=== PATIENT | male | born 1930 | race African-American/Black ===

== ENCOUNTER 2016-05-30 10:49 | Outpatient (CLI) | payer MEDICARE | END 2016-05-30 10:50 | disposition home or self-care (01) | DX: I27.2 Other secondary pulmonary hypertension (principal); I51.7 Cardiomegaly; I34.0 Nonrheumatic mitral (valve) insufficiency; I37.1 Nonrheumatic pulmonary valve insufficiency; I36.1 Nonrheumatic tricuspid (valve) insufficiency; R06.01 Orthopnea; R06.00 Dyspnea, unspecified; R91.8 Other nonspecific abnormal finding of lung field; Z95.810 Presence of automatic (implantable) cardiac defibrillator ==

== ENCOUNTER 2017-01-29 11:16 | Emergency (ER) | payer MEDICARE ==
--- NOTE | 2017-01-29 12:42 | ED Physician Documentation ---
PD HPI DYSPNEA - Stated complaint Stated Complaint: BILAT LEG SWELLING - Chief complaint Chief Complaint: General - History obtained from History obtained from: Patient - History of Present Illness Timing - onset: How many days ago (several days to a week) Timing - onset during: Light activity Timing - duration: Days Timing - details: Gradual onset Inciting event(s): No: Out of meds, Immobilization/travel Improved by: O2, Inhaler/neb Worsened by: Exertion, Laying flat. No: Coughing Associated symptoms: Wheezing, Bilateral edema. No: Fever, Cough, Palpitations , Anxiety Similar symptoms before: Follow up Recently seen: Not recently seen Review of Systems Constitutional: denies: Fever, Chills Nose: denies: Rhinorrhea / runny nose, Congestion Throat: denies: Sore throat Cardiac: denies: Chest pain / pressure, Palpitations : denies: Dysuria, Now EGA Skin: denies: Rash, Lesions Musculoskeletal: reports: Back pain, Extremity swelling. denies: Neck pain PD PAST MEDICAL HISTORY - Past Medical History Cardiovascular: Congestive heart failure, Hypertension, Coronary artery disease , Deep vein thrombosis, [place], Other Respiratory: COPD, Shortness of breath Neuro: None Endocrine/Autoimmune: Type 2 diabetes GI: None : None HEENT: Chronic hearing loss Psych: None Musculoskeletal: None Derm: None - Past Surgical History Past Surgical History: Yes Ortho: Knee replacement - Present Medications Home Medications: Ambulatory Orders Medication Instructions Recorded Confirmed Aspirin [Aspir 81] 81 mg PO DAILY 05/21/13 01/29/17 Furosemide [Lasix] 120 mg PO DAILY 05/21/13 01/29/17 Losartan [Cozaar] 25 mg PO ONCE 05/21/13 01/29/17 Potassium Chloride [Klor-Con] 0 meq ORAL DAILY 05/21/13 01/29/17 Carvedilol [Coreg] 6.25 mg PO BID #20 tablet 02/07/16 01/29/17 metFORMIN [Glucophage] 500 mg PO BIDWM tablet 02/07/16 01/29/17 Metolazone 5 mg PO DAILY #20 tablet 01/29/17 - Allergies Allergies/Adverse Reactions: Allergies Allergy/AdvReac Type Severity Reaction Status Date / Time Penicillins Allergy Severe Hives Verified 01/29/17 11:38 acetaminophen AdvReac Severe pt reports Verified 01/29/17 11:38 [From Darvocet-N 100] cardiac arrest propoxyphene napsylate * AdvReac Severe pt reports Verified 01/29/17 11:38 [facility] - Social History Does the pt smoke?: No Smoking Status: Former smoker Does the pt drink ETOH?: No Does the pt have substance abuse?: No - Immunizations Immunizations are current?: No Immunizations: TDAP >10years/unknown, Other immun not current PD ED PE NORMAL - Vitals Vital signs reviewed: Yes - General General: Alert and oriented X 3, No acute distress, Well developed/nourished, Other (able to converse in sentences. ) - Neck Neck: Supple, no meningeal sign, No bony TTP, Thyroid normal, No JVD - Cardiac Cardiac: RRR, No murmur - Respiratory Respiratory: No respiratory distress, Clear bilaterally - Rectal Rectal: Deferred - Back Back: No CVA TTP - Derm Derm: Normal color, Warm and dry - Extremities Extremities: No deformity, No tenderness to palpate, Other (2+ edema in both legs up to shins without signs of calf tenderness. ) - Neuro Neuro: Alert and oriented X 3, feather washer 2-12 intact, No motor deficit, No sensory deficit - Psych Psych: Normal mood, Normal affect Results - Vitals Vitals: Oxygen O2 Source Room air - EKG (time done) 13:07 Rate: Rate (enter#) (59) Rhythm: Atrial fibrillation (versus poor baseline, could also be paced. ) Intervals: Wide QRS Ischemia: Non specific changes. No: ST elevation c/w ischemia, ST depression Compare to prior EKG: Unchanged from prior EKG - Labs Labs: Laboratory Tests 01/29/17 01/29/17 01/29/17 13:20 13:20 13:20 WBC 6.8 RBC 3.72 L Hgb 11.4 L Hct 34.6 L MCV 93.3 MCH 30.7 MCHC 33.0 RDW 16.9 H Plt Count 171 MPV 8.5 Neut # 5.2 Lymph # 0.7 L [place] # 0.6 Eos # 0.2 Baso # 0.1 Absolute Nucleated RBC 0.00 Nucleated RBC % 0.0 Sodium 135 Potassium 4.2 Chloride 98 L Carbon Dioxide 28 Anion Gap 9.0 BUN 27 H Creatinine 1.6 H Estimated GFR (MDRD) 50 L Glucose 181 H Calcium 9.1 Magnesium 2.2 Total Bilirubin 3.5 H AST 25 ALT 16 Alkaline Phosphatase 143 H Troponin I 0.05 B-Natriuretic Peptide Total Protein 7.4 Albumin 4.1 Globulin 3.3 Albumin/Globulin Ratio 1.2 Lipase 25 01/29/17 13:20 WBC RBC Hgb Hct MCV MCH MCHC RDW Plt Count MPV Neut # Lymph # [place] # Eos # Baso # Absolute Nucleated RBC Nucleated RBC % Sodium Potassium Chloride Carbon Dioxide Anion Gap BUN Creatinine Estimated GFR (MDRD) Glucose Calcium Magnesium Total Bilirubin AST ALT Alkaline Phosphatase Troponin I B-Natriuretic Peptide 2916 H Total Protein Albumin Globulin Albumin/Globulin Ratio Lipase - Rads (name of study) chest Radiology: Prelim report reviewed, EMP read contemporaneously PD MEDICAL DECISION MAKING - ED course Complexity details: reviewed results, re-evaluated patient (some urine out with Lasix. Talked with Kurt, and would want to add Zaroxolyn to his torsemide. Patient does not look too bad and his vitals are good, so will try outpatient treatment initially. ), considered differential, d/w patient, d/w PMD (Dr. Hicks) Departure - Departure Disposition: Home, Self Care Clinical Impression: CHF (congestive heart failure) Qualifiers: Congestive heart failure type: combined Congestive heart failure chronicity: acute on chronic Qualified Code(s): I50.43 - Acute on chronic combined systolic (congestive) and diastolic (congestive) heart failure Dyspnea Qualifiers: Dyspnea type: dyspnea on exertion Qualified Code(s): R06.09 - Other forms of dyspnea Condition: Stable Record reviewed to determine appropriate education?: Yes Instructions: ED CHF General, ED Dyspnea Shortness of Breath Follow-Up: Vick Hicks MD [Primary Care Provider] - Prescriptions: Metolazone 5 mg PO DAILY #20 tablet Comments: I talked with Dr. Hicks and he would like to see you in the office in the next 2-3 days for follow-up. He would prefer you to continue your torsemide and to add another medication called Zaroxolyn rather than the furosemide. Take the Zaroxolyn daily. Continue other usual medications. Follow-up with Dr. Hicks in the next couple of days, call for an appointment. Return if worsening. Discharge Date/Time: 01/29/17 16:10
[2017-01-29] MEDS ORDERED: FUROSEMIDE 100 MG/10 ML VIAL IVP STA ×2 (12:58→14:41)
[2017-01-29] MEDS ORDERED: SODIUM CHLORIDE FLUSH 0.9% 10 ML SYRINGE IVP ONE (13:05)
[2017-01-29] MEDS ORDERED: FUROSEMIDE 40 MG/4 ML VIAL ONE ×2 (13:05→15:22)
--- NOTE | 2017-01-29 13:29 | XRAY Preliminary Report ---
Exam: XR Chest 2 View PA/LAT IMPRESSION: 1. Lower lung volumes with increased vascular crowding/congestion. 2. Small amount of groundglass of the lung bases may reflect hypoventilatory atelectasis, edema, or m ild pneumonia in the proper settings. 3. Stable enlarged cardiac silhouette size and left-sided chest wall pacemaker/defibrillator. [facility] SITE ID: [id number]
--- NOTE | 2017-01-29 13:32 | XRAY Report ---
EXAM: CHEST RADIOGRAPHY EXAM DATE: 01/29/2017 01:21 PM. CLINICAL HISTORY: Dyspnea. COMPARISON: 05/30/2016. TECHNIQUE: 2 views. FINDINGS: Lungs/Pleura: Lung volumes are lower with mild groundglass opacity at the bases. Mild crowding. Mild vascular congestion. Stable calcified granuloma right lung base. Mediastinum: Cardiac silhouette size is enlarged, stable. Atherosclerotic vascular calcification. Sta ble left-sided chest wall pacemaker/defibrillator. Other: Degenerative change of the spine. IMPRESSION: 1. Lower lung volumes with increased vascular crowding/congestion. 2. Small amount of groundglass of the lung bases may reflect hypoventilatory atelectasis, edema, or m ild pneumonia in the proper settings. 3. Stable enlarged cardiac silhouette size and left-sided chest wall pacemaker/defibrillator. [facility] Referring Provider Line: [phone] SITE ID: [id number]
[2017-01-29 13:34] LABS: BASOPHILS # (AUTO) 0.1 10^3/uL (0.0-0.1); EOSINOPHILS # (AUTO) 0.2 10^3/uL (0.0-0.7); EOSINOPHILS % (AUTO) 2.8 %; HCT - HEMATOCRIT 34.6 % (42.0-52.0); HGB - HEMOGLOBIN 11.4 g/dL (14.0-18.0); LYMPHOCYTES # (AUTO) 0.7 10^3/uL (1.5-3.5); LYMPHOCYTES % (AUTO) 10.5 %; MEAN CORPUSCULAR HEMOGLOBIN 30.7 pg (27.0-31.0); MEAN CORPUSCULAR VOLUME 93.3 fL (80.0-94.0); MEAN PLATELET VOLUME 8.5 fL (7.4-11.4); MONOCYTES # (AUTO) 0.6 10^3/uL (0.0-1.0); MONOCYTES % (AUTO) 8.9 %; NEUTROPHILS # (AUTO) 5.2 10^3/uL (1.5-6.6); NEUTROPHILS % (AUTO) 76.8 %; RED BLOOD COUNT 3.72 10^6/uL (4.70-6.10); RED CELL DISTRIBUTION WIDTH 16.9 % (12.0-15.0); UNCORRECTED WHITE BLOOD COUNT 6.8 x10^3/uL; WHITE BLOOD COUNT 6.8 x10^3/uL (4.8-10.8)
[2017-01-29 13:48] LABS: ALBUMIN/GLOBULIN RATIO 1.2 (1.0-2.2); BILIRUBIN,TOTAL 3.5 mg/dL (0.2-1.0); CALCIUM 9.1 mg/dL (8.5-10.3); CREATININE 1.6 mg/dL (0.6-1.2); MAGNESIUM 2.2 mg/dL (1.7-2.8); POTASSIUM 4.2 mmol/L (3.5-5.0); TOTAL PROTEIN 7.4 g/dL (6.7-8.2)
[2017-01-29] MEDS ORDERED: FUROSEMIDE 20 MG/2 ML VIAL IVP ONE (15:22)
[2017-01-29] MEDS ORDERED: metOLazone 2.5 MG TABLET PO STA (15:23)
[2017-01-29 15:56] VITALS: BP 136/86
== END 2017-01-29 16:10 | disposition home or self-care (01) ==
LOC: ED 11:16
DX: I11.0 Hypertensive heart disease with heart failure (principal); I50.43 Acute on chronic combined systolic (congestive) and diastolic (congestive) heart failure; R06.09 Other forms of dyspnea; I48.91 Unspecified atrial fibrillation; R94.31 Abnormal electrocardiogram [ECG] [EKG]; I25.10 Atherosclerotic heart disease of native coronary artery without angina pectoris; I25.2 Old myocardial infarction; Z86.718 Personal history of other venous thrombosis and embolism; J44.9 Chronic obstructive pulmonary disease, unspecified; E11.9 Type 2 diabetes mellitus without complications; Z79.84 Long term (current) use of oral hypoglycemic drugs; Z79.82 Long term (current) use of aspirin; Z87.891 Personal history of nicotine dependence
CPT/HCPCS: 36415; 71020; 80053; 83690; 83735; 83880; 84484; 85025; 93005; 96374; 96376; 99284; A9270

== ENCOUNTER 2017-07-29 12:07 | Outpatient (CLI) | payer MEDICARE ==
--- NOTE | 2017-07-29 14:21 | XRAY Report ---
TWO VIEW CHEST: 07/29/2017 CLINICAL INDICATION: Dyspnea. COMPARISON: 01/29/2017. FINDINGS: Frontal and lateral views of the chest demonstrate interval decrease in cardiomegaly. Left subclavian pacemaker is stable. Calcified granulomas are unchanged. There is minimal right basilar airspace disease and trace effusion. No pneumothorax. IMPRESSION: MINIMAL RIGHT BASILAR AIRSPACE DISEASE AND TRACE EFFUSION. TD: 07/29/2017 14:19
== END 2017-07-29 12:08 | disposition home or self-care (01) ==
LOC: DI.N 12:07
PROVIDERS: ATTEND Internal Medicine
DX: J98.4 Other disorders of lung (principal)
CPT/HCPCS: 71046

== ENCOUNTER 2017-11-20 13:07 | Emergency (ER) | payer MEDICARE ==
[2017-11-20 14:34] LABS: BASOPHILS # (AUTO) 0.1 10^3/uL (0.0-0.1); BASOPHILS % (AUTO) 0.9 %; EOSINOPHILS % (AUTO) 0.5 %; HGB - HEMOGLOBIN 14.3 g/dL (14.0-18.0); LYMPHOCYTES # (AUTO) 0.7 10^3/uL (1.5-3.5); LYMPHOCYTES % (AUTO) 7.2 %; MEAN CORPUSCULAR HEMOGLOBIN 28.2 pg (27.0-31.0); MEAN CORPUSCULAR HGB CONC 31.8 g/dL (32.0-36.0); MEAN CORPUSCULAR VOLUME 88.6 fL (80.0-94.0); MEAN PLATELET VOLUME 8.1 fL (7.4-11.4); MONOCYTES # (AUTO) 0.8 10^3/uL (0.0-1.0); MONOCYTES % (AUTO) 8.9 %; NEUTROPHILS # (AUTO) 7.6 10^3/uL (1.5-6.6); NEUTROPHILS % (AUTO) 82.5 %; PLT - PLATELET COUNT 282 10^3/uL (130-450); RED BLOOD COUNT 5.07 10^6/uL (4.70-6.10); RED CELL DISTRIBUTION WIDTH 17.6 % (12.0-15.0); WHITE BLOOD COUNT 9.2 x10^3/uL (4.8-10.8)
[2017-11-20 14:49] LABS: ALBUMIN 3.6 g/dL (3.2-5.5); ALBUMIN/GLOBULIN RATIO 0.9 (1.0-2.2); BILIRUBIN,TOTAL 5.9 mg/dL (0.2-1.0); CALCIUM 9.1 mg/dL (8.5-10.3); CREATININE 1.8 mg/dL (0.6-1.2); TOTAL PROTEIN 7.7 g/dL (6.7-8.2)
[2017-11-20] MEDS ORDERED: ONDANSETRON 4 MG/2 ML VIAL IVP STA ×2 (16:08→17:47)
[2017-11-20 16:15] LABS: BILIRUBIN,URINE NEGATIVE (NEGATIVE); GLUCOSE, URINE (UA) NEGATIVE (NEGATIVE); KETONES,URINE (UA) NEGATIVE (NEGATIVE); LEUKOCYTE ESTERASE, URINE NEGATIVE (NEGATIVE); NITRITE,URINE NEGATIVE (NEGATIVE); OCCULT BLOOD,URINE SMALL (NEGATIVE); PH,URINE 5.5 PH (5.0-7.5); PROTEIN,URINE 30 mg/dL (NEGATIVE); UROBILINOGEN,URINE 1 (NORMAL) E.U./dL (NORMAL)
[2017-11-20 16:17] LABS: CLARITY,URINE CLEAR (CLEAR)
[2017-11-20 16:27] LABS: BACTERIA,URINE None Seen /HPF (None Seen); CASTS, URINE 3-5 Hyaline Casts /LPF; RBC,URINE 0-5 /HPF (0-5); SQUAMOUS EPITHELIAL CELL,UR FEW Squamous (<= Few)
[2017-11-20] MEDS ORDERED: IOPAMIDOL-300 50 ML VIAL ONE (17:17)
[2017-11-20] MEDS ORDERED: IOPAMIDOL-300 50 ML VIAL PO ONE (17:47)
[2017-11-20] MEDS ORDERED: MORPHINE 10 MG/ML VIAL IVP STA (17:47)
[2017-11-20] MEDS ORDERED: SODIUM CHLORIDE 0.9% 500 ML IV ONE (17:47)
--- NOTE | 2017-11-20 18:53 | CT Report ---
Procedure Date: 11/20/2017 Accession Number: [id number] / [id number] Procedure: CT - Abdomen/Pelvis W/O CPT Code: FULL RESULT: EXAM: CT ABDOMEN AND PELVIS WITHOUT CONTRAST. EXAM DATE: 11/20/2017 06:07 PM. CLINICAL HISTORY: Abdominal pain. COMPARISONS: Abdomen ultrasound 02/06/2016. CT Angio chest 07/06/2014. TECHNIQUE: Routine helical CT imaging was performed through the abdomen and pelvis. IV contrast: No. Enteric contrast: Yes. Reconstructions: Coronal and sagittal. In accordance with CT protocol optimization, one or more of the following dose reduction techniques were utilized for this exam: automated exposure control, adjustment of mA and/or KV based on patient size, or use of iterative reconstructive technique. FINDINGS: Lung bases: Cardiomegaly. Pacemaker. Coronary artery calcification. Small consolidation at the medial right middle lobe appears unchanged most likely chronic. Right lower lobe calcified pulmonary nodule. Liver: Low-density mass at the right hepatic lobe liver dome most suggestive for a liver cyst and this was present on the prior exams. There is a small peripheral calcification in this liver cyst. Mild liver surface irregularity, can be seen with liver cirrhosis. Gallbladder: Gallbladder sludge is possible. Bile ducts: No bile dilatation. Pancreas: Atrophic. Spleen: A few calcified granulomas in the spleen. Adrenals: Unremarkable. Kidneys: Couple of left lower pole renal calculi largest measuring 5 mm low density mass at the lower pole left kidney Hounsfield units of 12 most suggestive for a renal cyst, measures 3.3 cm. A few other probable renal cysts in the left kidney but these are not fully characterized. Mild scarring suspected upper pole right kidney. Right anterior renal cyst measuring 1.1 cm. Right upper medial exophytic low density mass could be renal cyst but this is not fully characterized, Hounsfield units of 21. A renal ultrasound to further evaluate. This measures 1.6 cm. Bowel: Right inguinal hernia with a neck of 1.6 cm and this contains a couple of small bowel loops that are filled with oral contrast and there is no evidence for obstruction. There are no dilated bowel loops seen to suggest obstruction. There is fluid distending the right inguinal hernia distal to the bowel herniation. There is a small fat-containing left inguinal hernia. There is a small bowel loop that enters the opening of the left inguinal hernia which is not obstructed. Diffuse mesenteric edema, could be related to ascites fluid overload. There appears to be mild anasarca. No free air. Mild descending colon diverticulosis. Mild perihepatic and perisplenic ascites. Small umbilical hernia that appears to contain some fluid along with fat. Pelvis: The bladder and remaining pelvic organs appear unremarkable. Bones: Grade 1-2 anterolisthesis of L5 and S1 due to large facet arthropathy and degenerative disk disease. Marked atherosclerotic calcification of the abdominal aorta and its branches. IMPRESSION: 1. Bilateral inguinal hernias which both contain small bowel loops without evidence for obstruction. The right hernia is greater than the left and there is fluid in the right inguinal hernia. 2. No evidence for bowel obstruction. 3. Mild ascites. Diffuse mesenteric edema which could be related to the ascites/fluid overload. 4. Mild anasarca. 5. Mild descending colon diverticulosis. 6. Liver cyst is again noted. 7. Renal ultrasound could further evaluate the multiple low-density masses in the kidneys to exclude solid components. 8. Otherwise, see above. [facility]
--- NOTE | 2017-11-20 19:44 | ED Physician Documentation ---
History of Present Illness - Stated complaint Stated Complaint: ABD PX - Chief complaint Chief Complaint: Abd Pain - History obtained from History obtained from: Patient, Family - Additonal information Additional information: 87-year-old male presents the emergency department with increasing mid abdominal pain which is associated with nausea and vomiting over the past several days. The symptoms have progressively worsened. The patient denies any triggering factors or relieving factors. The patient denies dysuria, diarrhea or hematuria. The patient also has increased bilateral edema and has not taken his Lasix today. The patient denies chest pain or shortness of breath. No triggering factors. Symptoms are described as moderate. No other associated symptoms Review of Systems Constitutional: reports: Fatigue. denies: Fever, Chills Eyes: denies: Discharge Ears: denies: Ear pain Nose: denies: Congestion Cardiac: reports: Pedal edema. denies: Chest pain / pressure Respiratory: denies: Dyspnea, Cough GI: reports: Abdominal Pain, Nausea, Vomiting : denies: Dysuria Skin: denies: Laceration (s) Musculoskeletal: denies: Back pain Neurologic: denies: Generalized weakness PD PAST MEDICAL HISTORY - Past Medical History Cardiovascular: Congestive heart failure, Hypertension, Coronary artery disease , Deep vein thrombosis, [place], Other Respiratory: COPD, Shortness of breath Endocrine/Autoimmune: Type 2 diabetes GI: None : None HEENT: Chronic hearing loss Psych: None Musculoskeletal: None Derm: None - Past Surgical History Past Surgical History: Yes Ortho: Knee replacement Cardiovascular: Pacemaker, AICD - Present Medications Home Medications: Ambulatory Orders Medication Instructions Recorded Confirmed Aspirin [Aspir 81] 81 mg PO DAILY 05/21/13 01/29/17 Furosemide [Lasix] 120 mg PO DAILY 05/21/13 01/29/17 Losartan [Cozaar] 25 mg PO ONCE 05/21/13 01/29/17 Potassium Chloride [Klor-Con] 0 meq ORAL DAILY 05/21/13 01/29/17 Carvedilol [Coreg] 6.25 mg PO BID #20 tablet 02/07/16 01/29/17 metFORMIN [Glucophage] 500 mg PO BIDWM tablet 02/07/16 01/29/17 - Allergies Allergies/Adverse Reactions: Allergies Allergy/AdvReac Type Severity Reaction Status Date / Time Penicillins Allergy Severe Hives Verified 01/29/17 11:38 acetaminophen AdvReac Severe pt reports Verified 01/29/17 11:38 [From Darvocet-N 100] cardiac arrest propoxyphene napsylate * AdvReac Severe pt reports Verified 11/20/17 13:19 [From Darvocet-N 100] cardiac arrest - Social History Does the pt smoke?: No Smoking Status: Never smoker Does the pt drink ETOH?: No Does the pt have substance abuse?: No - Immunizations Immunizations are current?: No Immunizations: TDAP >10years/unknown, Other immun not current - POLST Patient has POLST: No PD ED PE NORMAL - General General: Alert and oriented X 3, No acute distress - HEENT HEENT: Atraumatic, PERRL, EOMI, Ears normal - Neck Neck: Supple, no meningeal sign - Cardiac Cardiac: Other (Irregular rhythm, normal rate) - Respiratory Respiratory: No respiratory distress, Clear bilaterally - Abdomen Abdomen: Normal bowel sounds, Soft, Non distended, Other (Generalized abdominal tenderness, no rebound or peritoneal signs) - Derm Derm: No: Normal color - Extremities Extremities: No deformity. No: No edema (3+ edema bilaterally) - Neuro Neuro: Alert and oriented X 3, No motor deficit, Normal speech - Psych Psych: Normal mood Results - Vitals Vitals: Vital Signs - 24 hr 11/20/17 11/20/17 11/20/17 13:16 14:47 16:08 Temperature 36 C L 36.8 C 36.4 C L Heart Rate 70 74 68 Respiratory 22 18 18 Rate Blood Pressure 151/116 H 155/92 H 167/107 H O2 Saturation 98 100 97 11/20/17 11/20/17 18:22 20:29 Temperature 36 C L Heart Rate 79 88 Respiratory 14 20 Rate Blood Pressure 155/100 H 160/108 H O2 Saturation 92 94 Oxygen O2 Source Room air - EKG (time done) 16: 47 Rate: Rate (enter#) Rhythm: Atrial fibrillation Intervals: Wide QRS. No: Normal [place] Ischemia: Non specific changes Other comments: Other comments (Atrial fibrillation with rate control, when compared to a prior EKG there is no evidence of acute ischemia) Compare to prior EKG: Unchanged from prior EKG - Labs Labs: Laboratory Tests 11/20/17 11/20/17 11/20/17 14:25 14:25 14:25 WBC 9.2 RBC 5.07 Hgb 14.3 Hct 44.9 MCV 88.6 MCH 28.2 MCHC 31.8 L RDW 17.6 H Plt Count 282 MPV 8.1 Neut # (Auto) 7.6 H Lymph # (Auto) 0.7 L [place] # (Auto) 0.8 Eos # (Auto) 0.0 Baso # (Auto) 0.1 Absolute Nucleated RBC 0.01 Nucleated RBC % 0.1 Sodium 135 Potassium 4.4 Chloride 97 L Carbon Dioxide 27 Anion Gap 11.0 BUN 35 H Creatinine 1.8 H Estimated GFR (MDRD) 43 L Glucose 101 H Calcium 9.1 Total Bilirubin 5.9 H AST 46 H ALT 32 Alkaline Phosphatase 203 H Troponin I 0.04 Total Protein 7.7 Albumin 3.6 Globulin 4.1 Albumin/Globulin Ratio 0.9 L Lipase 20 L Urine Color Urine Clarity Urine pH Ur Specific [place] Urine Protein Urine Glucose (UA) Urine Ketones Urine Occult Blood Urine Nitrite Urine Bilirubin Urine Urobilinogen Ur Leukocyte Esterase Urine RBC Urine WBC Ur Squamous Epith Cells Urine Bacteria Urine Casts Ur Microscopic Review Urine Culture Comments 11/20/17 16:00 WBC RBC Hgb Hct MCV MCH MCHC RDW Plt Count MPV Neut # (Auto) Lymph # (Auto) [place] # (Auto) Eos # (Auto) Baso # (Auto) Absolute Nucleated RBC Nucleated RBC % Sodium Potassium Chloride Carbon Dioxide Anion Gap BUN Creatinine Estimated GFR (MDRD) Glucose Calcium Total Bilirubin AST ALT Alkaline Phosphatase Troponin I Total Protein Albumin Globulin Albumin/Globulin Ratio Lipase Urine Color YELLOW Urine Clarity CLEAR Urine pH 5.5 Ur Specific [place] 1.020 Urine Protein 30 H Urine Glucose (UA) NEGATIVE Urine Ketones NEGATIVE Urine Occult Blood SMALL H Urine Nitrite NEGATIVE Urine Bilirubin NEGATIVE Urine Urobilinogen 1 (NORMAL) Ur Leukocyte Esterase NEGATIVE Urine RBC 0-5 Urine WBC 0-3 Ur Squamous Epith Cells FEW Squamous Urine Bacteria None Seen Urine Casts 3-5 Hyaline Casts Ur Microscopic Review INDICATED Urine Culture Comments NOT INDICATED - Rads (name of study) CT abdomen pelvis Radiology: Final report received, See rad report (Impression: 1 bilateral inguinal hernias which both contain small loops of bowel without evidence of obstruction. The right hernia is greater than the left and there is fluid in the right inguinal hernia to. No evidence of bowel obstruction 3. Mild ascites. Diffuse mesenteric edema which could be related to the ascites fluid/ fluid overload 4. Mild anasarca 5. Mild descending colon diverticulosis 6. Liver cyst is again noted 7. Renal ultrasound could further evaluate the multiple low-density masses in the kidneys to exclude solid components) PD MEDICAL DECISION MAKING - ED course ED course: On reevaluation the patient is resting comfortably and symptoms are under control. The patient reports feeling much improved. I discussed with the patient and his son the findings and my recommendation for admission to the hospital for further management of his volume overloadThe patient understands the findings and reason for admission. The patient currently has refused admission to the hospital. The patient reports wanting to go home and is comfortable being managed as an outpatient. I advised that he is at risk for worsening and if his symptoms do worsen they could result in severe disability or . The patient is comfortable with this. The patient is of sound mind and capable of making his decision. I discussed with the patient warning signs and advised that he should return to the emergency department immediately for any worsening or any concerns. - Sepsis Event Vital Signs: Vital Signs - 24 hr 11/20/17 11/20/17 11/20/17 13:16 14:47 16:08 Temperature 36 C L 36.8 C 36.4 C L Heart Rate 70 74 68 Respiratory 22 18 18 Rate Blood Pressure 151/116 H 155/92 H 167/107 H O2 Saturation 98 100 97 11/20/17 11/20/17 18:22 20:29 Temperature 36 C L Heart Rate 79 88 Respiratory 14 20 Rate Blood Pressure 155/100 H 160/108 H O2 Saturation 92 94 Oxygen O2 Source Room air Departure - Departure Disposition: 01 Home, Self Care Clinical Impression: Anasarca Abdominal pain Qualifiers: Abdominal location: generalized Qualified Code(s): R10.84 - Generalized abdominal pain Inguinal hernia bilateral, non-recurrent Qualifiers: Obstruction and gangrene presence: without obstruction or gangrene Recurrence: not specified as recurrent Qualified Code(s): K40.20 - Bilateral inguinal hernia , without obstruction or gangrene, not specified as recurrent Condition: Good Instructions: Abdominal Pain, ED Hernia Inguinal, ED Insufficiency Renal Follow-Up: Vick Hicks MD [Primary Care Provider] - Within 3 Days (Please follow-up with your primary care doctor. Please ask your primary care doctor to order an outpatient ultrasound of your kidneys. Please ask your primary care doctor to follow-up on your elevated bilirubin. Please ask your primary care doctor to follow-up on the increased amount of fluid in your abdomen.) Comments: You declined my recommendations for admission to the hospital for further management of your findings on your workup today. They understand you are at risk for a worsening in your condition which left untreated could result in disability or . Please return to the emergency department immediately at any point for reevaluation. Discharge Date/Time: 11/20/17 20:30
[2017-11-20] MEDS ORDERED: FUROSEMIDE 40 MG/4 ML VIAL IVP STA ×2 (19:56→20:06)
[2017-11-20] MEDS ORDERED: FUROSEMIDE 40 MG/4 ML VIAL ONE (20:19)
[2017-11-20 20:30] VITALS: BP 160/108
== END 2017-11-20 20:30 | disposition home or self-care (01) ==
LOC: ED 13:07
DX: R60.1 Generalized edema (principal); R10.84 Generalized abdominal pain; K40.20 Bilateral inguinal hernia, without obstruction or gangrene, not specified as recurrent; I10 Essential (primary) hypertension; E11.9 Type 2 diabetes mellitus without complications; Z95.0 Presence of cardiac pacemaker; Z79.84 Long term (current) use of oral hypoglycemic drugs; Z79.82 Long term (current) use of aspirin; I48.91 Unspecified atrial fibrillation; R18.8 Other ascites; R19.07 Generalized intra-abdominal and pelvic swelling, mass and lump; K57.30 Diverticulosis of large intestine without perforation or abscess without bleeding; K76.89 Other specified diseases of liver
CPT/HCPCS: 36415; 74176; 80053; 81001; 83690; 84484; 85025; 93005; 96361; 96374; 96375; 99283; Q9967; 81003; 85610; 85730; 87086

== ENCOUNTER 2017-12-08 20:12 | Observation (INO) | payer MEDICARE ==
--- NOTE | 2017-12-08 20:36 | ED Physician Documentation ---
History of Present Illness - Stated complaint Stated Complaint: SOA/NO URINATION - Chief complaint Chief Complaint: General - History obtained from History obtained from: Patient - Additonal information Additional information: 87-year-old male presents the emergency department for evaluation of decreased urine output and shortness of breath which has worsened over the past 3 days. The patient has a history of congestive heart failure, atrial fibrillation and significant peripheral edema. Over the past several days the patient's only been dribbling small amounts of urine and reports no significant urine output. The patient reports intermittent episodes of sharp abdominal pain. The patient reports shortness of breath worse on exertion. The patient denies chest pain, URI symptoms, fevers, chills. No triggering factors. No relieving factors. The patient's attempted to take extra doses of his Lasix with no improvement. No other associated symptoms. Symptoms are described as moderate Review of Systems Constitutional: reports: Fatigue. denies: Fever Eyes: denies: Discharge Ears: denies: Ear pain Nose: denies: Congestion Throat: denies: Sore throat Cardiac: reports: Pedal edema. denies: Palpitations Respiratory: reports: Dyspnea GI: reports: Abdominal Pain : reports: Unable to Void. denies: Hematuria Skin: reports: Other (The patient has chronic venous stasis, a chronic ulcers on his left lower leg) Musculoskeletal: denies: Back pain Neurologic: reports: Generalized weakness. denies: Difficulty speaking, Head injury Immunocompromised: denies: Chemotherapy PD PAST MEDICAL HISTORY - Past Medical History Cardiovascular: Congestive heart failure, Hypertension, Coronary artery disease , Deep vein thrombosis, PA, Atrial fibrillation, Other Respiratory: COPD, Shortness of breath Endocrine/Autoimmune: Type 2 diabetes GI: None : None HEENT: Chronic hearing loss Psych: None Musculoskeletal: None Derm: None - Past Surgical History Past Surgical History: Yes Ortho: Knee replacement Cardiovascular: Pacemaker, AICD - Present Medications Home Medications: Ambulatory Orders Medication Instructions Recorded Confirmed Aspirin [Aspir 81] 81 mg PO DAILY 05/21/13 01/29/17 Furosemide [Lasix] 120 mg PO DAILY 05/21/13 01/29/17 Losartan [Cozaar] 25 mg PO ONCE 05/21/13 01/29/17 Potassium Chloride [Klor-Con] 0 meq ORAL DAILY 05/21/13 01/29/17 Carvedilol [Coreg] 6.25 mg PO BID #20 tablet 02/07/16 01/29/17 metFORMIN [Glucophage] 500 mg PO BIDWM tablet 02/07/16 01/29/17 - Allergies Allergies/Adverse Reactions: Allergies Allergy/AdvReac Type Severity Reaction Status Date / Time Penicillins Allergy Severe Hives Verified 01/29/17 11:38 acetaminophen AdvReac Severe pt reports Verified 01/29/17 11:38 [From Darvocet-N 100] cardiac arrest propoxyphene napsylate * AdvReac Severe pt reports Verified 11/20/17 13:19 [From Darvocet-N 100] cardiac arrest - Social History Does the pt smoke?: No Smoking Status: Never smoker Does the pt drink ETOH?: No Does the pt have substance abuse?: No - Immunizations Immunizations are current?: No Immunizations: TDAP >10years/unknown, Other immun not current - POLST Patient has POLST: No PD ED PE NORMAL - General General: Alert and oriented X 3, No acute distress - HEENT HEENT: Atraumatic, PERRL, EOMI, Ears normal - Neck Neck: Supple, no meningeal sign - Cardiac Cardiac: Strong equal pulses - Respiratory Respiratory: No respiratory distress, Clear bilaterally - Abdomen Abdomen: Soft, Non tender, Non distended - Derm Derm: Other (Bilateral chronic venous stasis, there is old ulcers of the left lower leg) - Extremities Extremities: No deformity, Normal ROM s pain, Other (Bilateral pitting edema of the lower extremities) - Neuro Neuro: Alert and oriented X 3, Normal speech - Psych Psych: Normal mood PD ED PE EXPANDED - Cardiac Cardiac: Regular Rate, Regularly irregular Results - Vitals Vitals: Vital Signs - 24 hr 12/08/17 12/08/17 12/08/17 20:22 20:50 21:40 Temperature 36.7 C Heart Rate 86 72 73 Respiratory 22 16 16 Rate Blood Pressure 161/110 H 173/108 H 186/85 H O2 Saturation 95 93 94 Oxygen O2 Source Room air - EKG (time done) No standard instances Rate: Rate (enter#) (76 BPM) Rhythm: Atrial fibrillation Intervals: QRS normal Ischemia: Non specific changes Other comments: Other comments (Atrial fibrillation with rate controlled ventricular rhythm, no acute ischemic changes when compared to a prior EKG) Compare to prior EKG: Unchanged from prior EKG - Labs Labs: Laboratory Tests 12/08/17 12/08/17 12/08/17 20:44 20:44 20:44 WBC 8.4 RBC 4.57 L Hgb 13.0 L Hct 39.8 L MCV 87.1 MCH 28.5 MCHC 32.7 RDW 18.1 H Plt Count 215 MPV 8.8 Neut # (Auto) 6.2 Lymph # (Auto) 1.2 L [place] # (Auto) 0.8 Eos # (Auto) 0.1 Baso # (Auto) 0.1 Absolute Nucleated RBC 0.01 Nucleated RBC % 0.1 Sodium 134 L Potassium 3.8 Chloride 97 L Carbon Dioxide 24 Anion Gap 13.0 BUN 33 H Creatinine 1.6 H Estimated GFR (MDRD) 50 L Glucose 98 Calcium 9.0 Magnesium 2.2 Total Bilirubin 5.4 H AST 46 H ALT 25 Alkaline Phosphatase 208 H Total Creatine Kinase 240 Troponin I 0.04 B-Natriuretic Peptide Total Protein 7.9 Albumin 3.9 Globulin 4.0 Albumin/Globulin Ratio 1.0 Lipase 23 Urine Color Urine Clarity Urine pH Ur Specific [place] Urine Protein Urine Glucose (UA) Urine Ketones Urine Occult Blood Urine Nitrite Urine Bilirubin Urine Urobilinogen Ur Leukocyte Esterase Urine RBC Urine WBC Ur Squamous Epith Cells Urine Bacteria Urine Casts Ur Microscopic Review Urine Culture Comments 12/08/17 12/08/17 20:44 20:45 WBC RBC Hgb Hct MCV MCH MCHC RDW Plt Count MPV Neut # (Auto) Lymph # (Auto) [place] # (Auto) Eos # (Auto) Baso # (Auto) Absolute Nucleated RBC Nucleated RBC % Sodium Potassium Chloride Carbon Dioxide Anion Gap BUN Creatinine Estimated GFR (MDRD) Glucose Calcium Magnesium Total Bilirubin AST ALT Alkaline Phosphatase Total Creatine Kinase Troponin I B-Natriuretic Peptide 3521 H Total Protein Albumin Globulin Albumin/Globulin Ratio Lipase Urine Color YELLOW Urine Clarity CLEAR Urine pH 6.0 Ur Specific [place] 1.020 Urine Protein 30 H Urine Glucose (UA) NEGATIVE Urine Ketones NEGATIVE Urine Occult Blood SMALL H Urine Nitrite NEGATIVE Urine Bilirubin NEGATIVE Urine Urobilinogen 4 H Ur Leukocyte Esterase NEGATIVE Urine RBC 0-5 Urine WBC 0-3 Ur Squamous Epith Cells MOD Squamous H Urine Bacteria None Seen Urine Casts 0-2 Hyaline Casts Ur Microscopic Review INDICATED Urine Culture Comments NOT INDICATED - Rads (name of study) Chest x-ray Radiology: Final report received PD MEDICAL DECISION MAKING - ED course ED course: The patient appears to be in congestive heart failure and has volume overload and appears to have failed Lasix treatment. The patient will require admission to the hospital for diuresis with a different loop diuretic. The findings and plan were discussed with the patient who understands and agrees. The case was discussed with the hospitalist Dr. Rollins who accepts the patient onto her service. - Sepsis Event Vital Signs: Vital Signs - 24 hr 12/08/17 12/08/17 12/08/17 20:22 20:50 21:40 Temperature 36.7 C Heart Rate 86 72 73 Respiratory 22 16 16 Rate Blood Pressure 161/110 H 173/108 H 186/85 H O2 Saturation 95 93 94 Oxygen O2 Source Room air Departure - Departure Disposition: ED Place in Observation Clinical Impression: Failure of outpatient treatment Acute CHF (congestive heart failure) Qualifiers: Heart failure type: unspecified Qualified Code(s): I50.9 - Heart failure, unspecified Volume overload Qualifiers: Hypervolemia type: unspecified Qualified Code(s): E87.70 - Fluid overload, unspecified
[2017-12-08 20:53] LABS: BASOPHILS # (AUTO) 0.1 10^3/uL (0.0-0.1); BASOPHILS % (AUTO) 1.3 %; EOSINOPHILS # (AUTO) 0.1 10^3/uL (0.0-0.7); EOSINOPHILS % (AUTO) 1.1 %; LYMPHOCYTES # (AUTO) 1.2 10^3/uL (1.5-3.5); LYMPHOCYTES % (AUTO) 13.9 %; MEAN CORPUSCULAR HEMOGLOBIN 28.5 pg (27.0-31.0); MEAN CORPUSCULAR HGB CONC 32.7 g/dL (32.0-36.0); MEAN CORPUSCULAR VOLUME 87.1 fL (80.0-94.0); MEAN PLATELET VOLUME 8.8 fL (7.4-11.4); MONOCYTES # (AUTO) 0.8 10^3/uL (0.0-1.0); MONOCYTES % (AUTO) 9.2 %; NEUTROPHILS # (AUTO) 6.2 10^3/uL (1.5-6.6); NEUTROPHILS % (AUTO) 74.5 %; PLT - PLATELET COUNT 215 10^3/uL (130-450); RED BLOOD COUNT 4.57 10^6/uL (4.70-6.10); RED CELL DISTRIBUTION WIDTH 18.1 % (12.0-15.0); WHITE BLOOD COUNT 8.4 x10^3/uL (4.8-10.8)
[2017-12-08 21:00] LABS: BILIRUBIN,URINE NEGATIVE (NEGATIVE); GLUCOSE, URINE (UA) NEGATIVE (NEGATIVE); KETONES,URINE (UA) NEGATIVE (NEGATIVE); LEUKOCYTE ESTERASE, URINE NEGATIVE (NEGATIVE); NITRITE,URINE NEGATIVE (NEGATIVE); OCCULT BLOOD,URINE SMALL (NEGATIVE); PROTEIN,URINE 30 mg/dL (NEGATIVE); UROBILINOGEN,URINE 4 E.U./dL (NORMAL)
[2017-12-08 21:00] LABS: ALBUMIN 3.9 g/dL (3.2-5.5); BILIRUBIN,TOTAL 5.4 mg/dL (0.2-1.0); CREATININE 1.6 mg/dL (0.6-1.2); MAGNESIUM 2.2 mg/dL (1.7-2.8); TOTAL PROTEIN 7.9 g/dL (6.7-8.2)
[2017-12-08 21:02] LABS: CLARITY,URINE CLEAR (CLEAR)
[2017-12-08 21:13] LABS: BACTERIA,URINE None Seen /HPF (None Seen); CASTS, URINE 0-2 Hyaline Casts /LPF; RBC,URINE 0-5 /HPF (0-5); SQUAMOUS EPITHELIAL CELL,UR MOD Squamous (<= Few)
[2017-12-08] MEDS ORDERED: BUMETANIDE 1 MG/4 ML VIAL IVP STA (21:26)
[2017-12-08] MEDS ORDERED: ASPIRIN CHEW 81 MG TABLET PO STA (21:30)
[2017-12-08] MEDS ORDERED: NITROGLYCERIN 2% PASTE TOP STA (21:30)
--- NOTE | 2017-12-08 21:37 | XRAY Report ---
Procedure Date: 12/08/2017 Accession Number: [id number] / [id number] Procedure: XR - Chest 2 View X-Ray CPT Code: 67862 FULL RESULT: EXAM: CHEST RADIOGRAPHY EXAM DATE: 12/08/2017 09:11 PM. CLINICAL HISTORY: Soa. COMPARISON: 01/29/2017. TECHNIQUE: 2 views. FINDINGS: Lungs/Pleura: No focal consolidation. Mild central vascular congestion. No pleural effusion. No pneumothorax. Mediastinum: Heart is enlarged. Pacemaker/AICD leads in similar position. Other: None. IMPRESSION: Cardiomegaly and mild central vascular congestion. No focal consolidation. RADIA
[2017-12-08] MEDS ORDERED: MORPHINE 2 MG/ML SYRINGE IVP PRN (22:51)
[2017-12-08] MEDS ORDERED: TEMAZEPAM 15 MG CAPSULE PO PRN (22:51)
[2017-12-08] MEDS ORDERED: ONDANSETRON 4 MG/2 ML VIAL IVP PRN (22:51)
[2017-12-08] MEDS ORDERED: SODIUM CHLORIDE FLUSH 0.9% 10 ML SYRINGE IVP PRN (22:51)
[2017-12-08] MEDS ORDERED: LOSARTAN 25 MG PO SCH (23:00)
[2017-12-09] MEDS ORDERED: CARBOXYMETHYLCELLULOSE OPHTH DROPS EACHEYE PRN (00:10)
[2017-12-09] MEDS: CARVEDILOL 3.125 MG TABLET PO SCH ×3 (00:49→21:00)
[2017-12-09] MEDS: SPIRONOLACTONE 25 MG TABLET PO SCH ×3 (00:49→21:00)
[2017-12-09] MEDS: SODIUM CHLORIDE FLUSH 0.9% 10 ML SYRINGE IVP SCH ×4 (00:55→23:48)
--- NOTE | 2017-12-09 01:56 | HISTORY & PHYSICAL EXAMINATION ---
DATE OF SERVICE: 12/08/2017 Physician: Emelyn Rollins MD HISTORY OF PRESENT ILLNESS: This is an 87-year-old black male with a history of hypertension, coronary artery disease, systolic heart failure, amyloid heart disease, CKD, VF history with a defibrillator, and non-insulin dependent diabetes. The patient describes worsening leg edema for several weeks and his oral Lasix dose has been increased; and despite this, he has had decreased urine output ("only dribbling"). With these complaints, he presented to the emergency room and was found to have edema and renal insufficiency and his Lasix is no longer producing diuresis. He is being placed in Observation for management of his volume overload and adjustment of medications. PAST MEDICAL HISTORY 1. History of CHF. 2. Hypertension. 3. Cor pulmonale with pulmonary hypertension by Echo done in May 2016. 4. Amyloid heart disease. 5. CKD. 6. CAD. 7. History of VF with a defibrillator. 8. NIDDM. ALLERGIES 1. PENICILLIN. 2. TYLENOL. 3. PROPOXYPHENE. MEDICATIONS 1. Metformin 500 b.i.d. 2. Losartan 25 daily. 3. Lasix 120 mg daily. 4. Coreg 6.25 b.i.d. 5. Baby aspirin daily. FAMILY HISTORY: No inherited diseases. SOCIAL HISTORY: He is a nonsmoker, drinks no alcohol, no illicit drugs. REVIEW OF SYSTEMS: A comprehensive review of systems was performed and the pertinent positives are in the HPI, the rest are negative. PHYSICAL EXAMINATION GENERAL: Elderly, black male. He is in no distress. VITAL SIGNS: Blood pressure 160/104 and he was as high as 173/108 in the ER. Pulse is 64, afebrile, room air saturation 95%. HEENT: Unremarkable. NECK: Shows no JVD in a vertical position. No carotid bruits. CHEST: Diminished breath sounds. HEART: Normal S1, S2. Harsh, honking samuels-systolic murmur at the apex. The PMI is inferiorly and laterally displaced. No RV heave. ABDOMEN: Soft. EXTREMITIES: Show 3+ edema. NEUROLOGIC: Intact. LABORATORY DATA: Sodium 134, otherwise normal electrolytes. BUN 33, creatinine 1.6. In the past he has run creatinine between 1.4 and 1.8. BNP 3521. Troponin is 0.04. White blood count 8.4 with a normal differential, normal platelet count of 215, hemoglobin 13. Urinalysis: Small occult blood, moderate squamous cells and a culture was indicated. EKG: Unclear underlying rhythm, possibly atrial fibrillation, extreme right axis deviation versus pacing, poor R progression, LVH voltage. Similar to previous. IMPRESSION/DIAGNOSES 1. [id number] systolic and diastolic heart failure. 2. Hypertension, poorly controlled. 3. Cor pulmonale with pulmonary hypertension history. 4. Amyloid heart disease. 5. Chronic kidney disease. 6. Coronary artery disease history. 7. Ventricular fibrillation history with defibrillator. 8. Diabetes, on metformin. 9. Chronic Afib, unclear why he is not on an anticoagulant. 10. Mitral regurgitation heart murmur. PLAN 1. Place the patient in Observation, on telemetry. 2. Start him on Bumex, a stronger diuretic. One dose was given IV in the ER. We will continue 1 mg i.v. or p.o. b.i.d. 3. Follow his BNP, I's and O's, daily weights. 4. Cycle troponins. 5. Obtain an Echo. 6. Stop the losartan and in its place, begin hydralazine and nitrates, which is indicated especially in black people for systolic heart failure, and in this case, because of worsening renal failure, and stop the ARB. 7. Begin spironolactone. 8. Start a carb-controlled diet, check A1c, sliding scale insulin coverage while here, and stop the Glucophage. CODE STATUS: FULL CODE. DEEP VENOUS THROMBOSIS PROPHYLAXIS: Lovenox. ATTESTATION: The patient is expected to be discharged or transferred to another facility within 96 hours: Yes. TD: 12/09/2017 00:10 MITZI
[2017-12-09 05:07] LABS: BASOPHILS # (AUTO) 0.1 10^3/uL (0.0-0.1); BASOPHILS % (AUTO) 1.4 %; EOSINOPHILS # (AUTO) 0.1 10^3/uL (0.0-0.7); EOSINOPHILS % (AUTO) 1.9 %; HGB - HEMOGLOBIN 11.7 g/dL (14.0-18.0); MEAN CORPUSCULAR HEMOGLOBIN 28.2 pg (27.0-31.0); MEAN CORPUSCULAR VOLUME 85.4 fL (80.0-94.0); MEAN PLATELET VOLUME 8.3 fL (7.4-11.4); MONOCYTES # (AUTO) 0.7 10^3/uL (0.0-1.0); MONOCYTES % (AUTO) 10.3 %; NEUTROPHILS # (AUTO) 5.2 10^3/uL (1.5-6.6); NEUTROPHILS % (AUTO) 72.4 %; PLT - PLATELET COUNT 175 10^3/uL (130-450); RED BLOOD COUNT 4.14 10^6/uL (4.70-6.10); RED CELL DISTRIBUTION WIDTH 17.8 % (12.0-15.0); WHITE BLOOD COUNT 7.2 x10^3/uL (4.8-10.8)
[2017-12-09 05:27] LABS: CREATININE 1.8 mg/dL (0.6-1.2)
[2017-12-09 05:30] LABS: CALCIUM 8.6 mg/dL (8.5-10.3)
[2017-12-09 05:53] LABS: HB2 TOTAL 12.6 g/dL; HEMOGLOBIN A1C 0.99 g/dL; HEMOGLOBIN A1C % 9.3 % (4.6-6.2)
[2017-12-09] MEDS ORDERED: BUMETANIDE 1 MG TABLET PO SCH (07:00)
[2017-12-09] MEDS: INSULIN ASPART 300 UNIT/3 ML PEN SUBQ SCH ×4 (07:57→21:00)
[2017-12-09] MEDS: BUMETANIDE IV SCH ×2 (08:13→09:44)
[2017-12-09] MEDS: SODIUM CHLORIDE 0.9% IV SCH ×2 (08:13→09:44)
[2017-12-09] MEDS: ISOSORBIDE MONONITRATE ER 30 MG TABLET PO SCH (08:14)
[2017-12-09] MEDS: ASPIRIN EC 81 MG TABLET PO SCH (08:14)
[2017-12-09] MEDS: FAMOTIDINE 20 MG TABLET PO SCH (08:15)
[2017-12-09] MEDS: POLYETHYLENE GLYCOL 3350 17 GM PACKET PO SCH (08:15)
[2017-12-09] MEDS: hydrALAZINE 25 MG TABLET PO SCH ×2 (08:15→21:00)
[2017-12-09] MEDS: ENOXAPARIN 40 MG/0.4 ML SYRINGE SUBQ SCH (08:15)
--- NOTE | 2017-12-09 08:51 | PROVIDER PROGRESS NOTE ---
Subjective - Prog Note Date Prog Note Date: 12/09/17 Prog Note Time: 08:51 - Subjective Pt reports feeling: Improved Subjective: Fred has no complaints and states that he is very glad that he came to the hospital because he feels much improved already. He denies shortness of breath , chest pain or pressure, nausea, vomiting, or an increased cough. He has increased BLE edema and is requiring oxygen. Current Medications - Current Medications Current Medications: Active Medications Aspirin (Ecotrin) 81 mg PO DAILY [facility] Last Admin: 12/09/17 08:14 Dose: 81 mg Carboxymethylcellulose (Refresh 1% Ophth Drops) 1 drops EACHEYE PRN PRN PRN Reason: Dry Eye Last Admin: 12/09/17 00:50 Dose: 1 drops Carvedilol (Coreg) 6.25 mg PO BID [facility] Last Admin: 12/09/17 08:14 Dose: 6.25 mg Enoxaparin Sodium (Lovenox) 40 mg SUBQ DAILY [facility] Last Admin: 12/09/17 08:15 Dose: 40 mg Famotidine (Pepcid) 20 mg PO DAILY [facility] Last Admin: 12/09/17 08:15 Dose: 20 mg Gabapentin (Neurontin) 300 mg PO TID [facility] Last Admin: 12/09/17 14:44 Dose: 300 mg Hydralazine HCl (Apresoline) 25 mg PO BID [facility] Last Admin: 12/09/17 08:15 Dose: 25 mg Bumetanide 2 mg/ Sodium (Chloride) 58 mls @ 232 mls/hr IV BID [facility] Last Admin: 12/09/17 09:44 Dose: Not Given Insulin Aspart (Novolog) 1 - 5 unit SUBQ 0800,1200,1700,2100 [facility] PRN Reason: Protocol Last Admin: 12/09/17 12:01 Dose: Not Given Isosorbide Mononitrate (Imdur) 30 mg PO DAILY [facility] Last Admin: 12/09/17 08:14 Dose: 30 mg Methylphenidate HCl (Ritalin) 20 mg PO BID [facility] Last Admin: 12/09/17 12:52 Dose: 20 mg Morphine Sulfate (Morphine) 2 mg IVP Q2H PRN PRN Reason: Dyspnea Ondansetron HCl (Zofran Inj) 4 mg IVP Q6HR PRN PRN Reason: Nausea / Vomiting Polyethylene Glycol (Miralax) 17 gm PO DAILY [facility] Last Admin: 12/09/17 08:15 Dose: 17 gm Sodium Chloride (Normal Saline Flush 0.9%) 10 ml IVP PRN PRN PRN Reason: NEEDED PER PROVIDER ORDERS Last Admin: 12/09/17 08:15 Dose: 10 ml Sodium Chloride (Normal Saline Flush 0.9%) 10 ml IVP 0100,0900,1700 [facility] Last Admin: 12/09/17 08:15 Dose: 10 ml Spironolactone (Aldactone) 25 mg PO BID [facility] Last Admin: 12/09/17 08:15 Dose: 25 mg Temazepam (Restoril) 15 mg PO QPM PRN PRN Reason: Insomnia Aspirin [Aspir 81] 81 mg PO DAILY 05/21/13 Furosemide [Furosemide] 80 mg PO BIDDIURETIC 12/09/17 Gabapentin [Gabapentin] 300 mg PO TID 12/09/17 Glipizide [Glipizide] 5 mg PO DAILYWM 12/09/17 Losartan Potassium [Losartan Potassium] 100 mg PO DAILY 12/09/17 Methylphenidate HCl 20 mg PO BID 12/09/17 Objective - Vital Signs/Intake & Output Reviewed Vital Signs: Yes Vital Signs: Vital Signs x48h Temp Pulse Resp BP Pulse Ox 12/09/17 07:22 36.2 C L 62 18 137/82 H 100 12/09/17 03:54 36.8 C 62 18 107/74 95 Intake & Output: Intake & Output 12/06/17 12/07/17 12/08/17 12/09/17 23:59 23:59 23:59 23:59 Intake Total 510 Output Total 300 Balance 210 - Objective General Appearance: positive: No acute distress, Alert Eyes Bilateral: positive: Normal inspection Eyes: OU Conjunctivae pale, OU Scleral icterus ENT: positive: ENT inspection nml, Pharynx nml, Pharyngeal erythema, Dry mucous membranes Neck: positive: Nml inspection, Thyroid nml, No JVD, Stiff neck Respiratory: positive: Chest non-tender, No respiratory distress, Other (slight bilateral low lobe crackles.) Cardiovascular: positive: Irregularly irregular, Tachycardia, Systolic murmur, Gallop/S4, Decreased pulse(s) Peripheral Pulses: 1+ Radial (R), 1+ Radial (L) Abdomen: positive: Non-tender, Nml bowel sounds, Other (rounded, soft) Back: positive: Nml inspection Skin: positive: No rash, Warm, Dry Neurologic/Psychiatric: positive: Oriented x3, CN's nml (2-12), Motor nml, Sensation nml, Weakness, Slurred/abnml speech (sluggish), Depressed mood/affect Reflexes: Bicep (R): 3+, Bicep (L): 3+ - Lab Results Fish Bones: 12/09/17 04:58 12/09/17 04:58 Other Labs: Lab Results x24hrs 12/09/17 12/09/17 12/09/17 Range/Units 07:43 04:58 04:58 WBC (4.8-10.8) x10^3/uL RBC (4.70-6.10) 10^6/uL Hgb (14.0-18.0) g/dL Hct (42.0-52.0) % MCV (80.0-94.0) fL MCH (27.0-31.0) pg MCHC (32.0-36.0) g/dL RDW (12.0-15.0) % Plt Count (130-450) 10^3/uL MPV (7.4-11.4) fL Neut # (Auto) (1.5-6.6) 10^3/uL Lymph # (Auto) (1.5-3.5) 10^3/uL [place] # (Auto) (0.0-1.0) 10^3/uL Eos # (Auto) (0.0-0.7) 10^3/uL Baso # (Auto) (0.0-0.1) 10^3/uL Absolute Nucleated RBC x10^3/uL Nucleated RBC % /100WBC Sodium 135 (135-145) mmol/L Potassium 3.3 L (3.5-5.0) mmol/L Chloride 99 L (101-111) mmol/L Carbon Dioxide 24 (21-32) mmol/L Anion Gap 12.0 (6-13) BUN 35 H (6-20) mg/dL Creatinine 1.8 H (0.6-1.2) mg/dL Estimated GFR (MDRD) 43 L (>89) Glucose 94 (70-100) mg/dL POC Whole Bld Glucose 84 (70 - 100) mg/dL Glycated Hemoglobin (4.6-6.2) % Estim Average Glucose (70-100) Calcium 8.6 (8.5-10.3) mg/dL Troponin I 0.05 (<0.49) ng/mL B-Natriuretic Peptide (5-100) pg/mL 12/09/17 12/09/17 12/09/17 Range/Units 04:58 04:58 04:58 WBC 7.2 (4.8-10.8) x10^3/uL RBC 4.14 L (4.70-6.10) 10^6/uL Hgb 11.7 L (14.0-18.0) g/dL Hct 35.4 L (42.0-52.0) % MCV 85.4 (80.0-94.0) fL MCH 28.2 (27.0-31.0) pg MCHC 33.0 (32.0-36.0) g/dL RDW 17.8 H (12.0-15.0) % Plt Count 175 (130-450) 10^3/uL MPV 8.3 (7.4-11.4) fL Neut # (Auto) 5.2 (1.5-6.6) 10^3/uL Lymph # (Auto) 1.0 L (1.5-3.5) 10^3/uL [place] # (Auto) 0.7 (0.0-1.0) 10^3/uL Eos # (Auto) 0.1 (0.0-0.7) 10^3/uL Baso # (Auto) 0.1 (0.0-0.1) 10^3/uL Absolute Nucleated RBC 0.00 x10^3/uL Nucleated RBC % 0.0 /100WBC Sodium (135-145) mmol/L Potassium (3.5-5.0) mmol/L Chloride (101-111) mmol/L Carbon Dioxide (21-32) mmol/L Anion Gap (6-13) BUN (6-20) mg/dL Creatinine (0.6-1.2) mg/dL Estimated GFR (MDRD) (>89) Glucose (70-100) mg/dL POC Whole Bld Glucose (70 - 100) mg/dL Glycated Hemoglobin 9.3 H (4.6-6.2) % Estim Average Glucose 220 H (70-100) Calcium (8.5-10.3) mg/dL Troponin I (<0.49) ng/mL B-Natriuretic Peptide 3899 H (5-100) pg/mL - Diagnostic Imaging Diagnostic Imaging Results: positive: Final report reviewed ABX Reporting Has patient been on IV antibiotics over the past 48 hours?: No Assessment/Plan - Problem List (1) Combined systolic and diastolic congestive heart failure, NYHA class 2 Impression: The patient states that he feels that his usual lasix dose has not been working like it used to and noticed a reduced urine out put. He has known heart failure and is prescribed lasix, losartan, and low dose coreg at home. Preliminary echo results show a worsening EF from 35% in May of 2016 to now 20-25%, and worsening right sided heart pressures from an RVSP at rest of 77 mm Hg to now 109 mm Hg. The admitting Hospitalist appropriately added Imdur, and IV Bumex. He will likely need torsemide, rather than furosemide. The patient has pitting BLE edema, crackles in his low lung bases, and is requiring oxygen upon exam. Plan: Continue treatment and monitor fluid status. Qualifiers: Congestive heart failure chronicity: acute on chronic Qualified Code(s): I50.43 - Acute on chronic combined systolic (congestive) and diastolic ( congestive) heart failure (2) CKD (chronic kidney disease) stage 3, GFR 30-59 ml/min Impression: The patient has known kidney disease, and has a baseline creatinine of 1.3 that is now elevated to 1.8 at the time of admission. He has a baseline GFR of 58, that is now reduced to 43. The patient admits to recent reduction in urination and feels like his furosemide is not working well. I have ordered a renal artery US, that is still pending. He is on several agents for blood pressure control. This condition may be a consequence of his worsening heart failure. Plan: Continue diuresis, daily labs and await ultrasound results. (3) Diabetes mellitus type 2 in nonobese Impression: The patient has an elevated HgA1C of 9.9%. He takes glipizide at home, and denies regularly checking his sugars at home. He states his PO intake as poor lately since it has been more difficult to breath. Plan: Continue to monitor, hold Glipizide and give daily Lantus while in the hospital. (4) Hypertension Impression: The patient has known HTN, uncontrolled at times. Upon admission his blood pressure was elevated at 166/110 and continues around this range today. He was given nitro paste, that has been replaced with imdur today. He was also prescribed hydralazine Q6H scheduled, that can be titrated up tomorrow. A renal artery US was ordered early today, but still pending. Plan: Continue to monitor, and give medications, diuretics. 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 He is prescribed Spironolactone, that is continued. Plan: Continue to monitor, provide oxygen and continue medication.
[2017-12-09] MEDS ORDERED: LOSARTAN 25 MG PO SCH (09:00)
[2017-12-09] MEDS: METHYLPHENIDATE 10 MG TABLET PO SCH ×2 (12:52→21:00)
[2017-12-09] MEDS: GABAPENTIN 300 MG CAPSULE PO SCH ×2 (14:44→21:00)
[2017-12-09] MEDS: BUMETANIDE 2.5 MG/10 ML VIAL IVP SCH (20:58)
[2017-12-10 06:30] LABS: BASOPHILS # (AUTO) 0.1 10^3/uL (0.0-0.1); BASOPHILS % (AUTO) 1.4 %; EOSINOPHILS # (AUTO) 0.2 10^3/uL (0.0-0.7); EOSINOPHILS % (AUTO) 3.1 %; HGB - HEMOGLOBIN 11.6 g/dL (14.0-18.0); LYMPHOCYTES # (AUTO) 0.8 10^3/uL (1.5-3.5); LYMPHOCYTES % (AUTO) 14.9 %; MEAN CORPUSCULAR HEMOGLOBIN 28.3 pg (27.0-31.0); MEAN CORPUSCULAR VOLUME 85.7 fL (80.0-94.0); MEAN PLATELET VOLUME 8.8 fL (7.4-11.4); MONOCYTES # (AUTO) 0.5 10^3/uL (0.0-1.0); MONOCYTES % (AUTO) 9.9 %; NEUTROPHILS # (AUTO) 3.9 10^3/uL (1.5-6.6); NEUTROPHILS % (AUTO) 70.7 %; PLT - PLATELET COUNT 182 10^3/uL (130-450); RED BLOOD COUNT 4.11 10^6/uL (4.70-6.10); RED CELL DISTRIBUTION WIDTH 17.7 % (12.0-15.0); WHITE BLOOD COUNT 5.5 x10^3/uL (4.8-10.8)
[2017-12-10 06:35] LABS: CALCIUM 8.5 mg/dL (8.5-10.3); CREATININE 1.8 mg/dL (0.6-1.2)
[2017-12-10] MEDS: GABAPENTIN 300 MG CAPSULE PO SCH (06:47)
[2017-12-10] MEDS: INSULIN ASPART 300 UNIT/3 ML PEN SUBQ SCH ×2 (08:47→12:00)
[2017-12-10] MEDS: ASPIRIN EC 81 MG TABLET PO SCH (08:48)
[2017-12-10] MEDS: METHYLPHENIDATE 10 MG TABLET PO SCH (08:48)
[2017-12-10] MEDS ORDERED: POTASSIUM CHLORIDE 20 MEQ TABLET PO SCH (08:48)
[2017-12-10] MEDS: hydrALAZINE 25 MG TABLET PO SCH (08:48)
[2017-12-10] MEDS: FAMOTIDINE 20 MG TABLET PO SCH (08:49)
[2017-12-10] MEDS: SPIRONOLACTONE 25 MG TABLET PO SCH (08:49)
[2017-12-10] MEDS: SODIUM CHLORIDE FLUSH 0.9% 10 ML SYRINGE IVP SCH (08:49)
[2017-12-10] MEDS: ISOSORBIDE MONONITRATE ER 30 MG TABLET PO SCH (08:49)
[2017-12-10] MEDS: CARVEDILOL 3.125 MG TABLET PO SCH (08:49)
[2017-12-10] MEDS: BUMETANIDE 2.5 MG/10 ML VIAL IVP SCH (08:51)
[2017-12-10] MEDS: POLYETHYLENE GLYCOL 3350 17 GM PACKET PO SCH (08:59)
[2017-12-10] MEDS: ENOXAPARIN 40 MG/0.4 ML SYRINGE SUBQ SCH (09:00)
--- NOTE | 2017-12-10 09:51 | Ultrasound Report ---
Procedure Date: 12/10/2017 Accession Number: [id number] / [id number] Procedure: US - Arterial Visceral Complete CPT Code: FULL RESULT: EXAM: RENAL ARTERY DOPPLER ULTRASOUND EXAM DATE: 12/10/2017 07:41 AM. CLINICAL HISTORY: Renal artery stenosis. COMPARISON: None. TECHNIQUE: Real-time sonographic vascular imaging was performed by the network solutions architect through the renal arterial system with a linear transducer utilizing color-flow, Doppler flow, and spectral analysis. Multiple retail account representative static images were saved for review. FINDINGS: Right Kidney: 9.6 x 6.5 x 4.7 cm. Echotexture: Multiple cysts, largest mid 1.1 x 0.9 x 1.1 cm. Right Segmental Artery: Upper pole: PSV 10.4 cm/sec, RI 0.78. Mid pole: PSV 10.2 cm/sec, RI 0.77. Lower pole: PSV 8.1 cm/sec, RI 0.74. Right Renal Artery: Origin: PSV 56 cm/sec, RA/AO 1.02. Proximal: PSV 81 cm/sec, RA/AO 1.47. Mid: PSV 85 cm/sec, RA/AO 1.55. Distal: PSV 53 cm/sec, RA/AO 0.96. Aorta PSV: 55 cm/sec. RRV Patent: Yes. Left Kidney: 10.5 x 5.5 x 5.9 cm. Echotexture: Multiple cysts, largest mid 3.1 x 3.0 x 3.2 cm. Left Segmental Artery: Upper pole: PSV 9 cm/sec, RI 0.73. Mid pole: PSV 7 cm/sec, RI 0.68. Lower pole: PSV 9 cm/sec, RI 0.70. Left Renal Artery: Origin: PSV 92 cm/sec, RA/AO 1.67. Proximal: PSV 88 cm/sec, RA/AO 1.60. Mid: PSV 64 cm/sec, RA/AO 1.6. Distal: PSV 53 cm/sec, RA/AO 0.96. LRV Patent: Yes. IMPRESSION: 1. Mild bilateral renal cortical thinning with increased renal cortical echogenicity compatible with chronic nonspecific medical renal disease. Bilateral simple renal cysts are seen. 2. No evidence for hydronephrosis bilaterally. 3. Bilateral renal artery velocities and spectral waveforms show no evidence for hemodynamically significant stenoses. 4. Bilateral segmental arterial resistive indices are within normal limits. 5. Bilateral renal veins are patent. CRITERIA FOR CLASSIFICATION OF RENAL ARTERY (RA) DISEASE BY DUPLEX SCANNING: RA Diameter Reduction/ RA PSV/ RAR: Normal, < 180 cm/sec, < 3.5 < 60%, >= 180 cm/sec, < 3.5 >= 60%, >= 180 cm/sec, >= 3.5 Total Occlusion: Undetectable; Not applicable RADIA
[2017-12-10 09:59] VITALS: BP 125/82
--- NOTE | 2017-12-10 12:42 | Discharge Plan ---
Discharge Plan Disposition: Home, Self Care Condition: Poor Prescriptions: Carvedilol [Coreg] 6.25 mg PO BID #15 tablet Isosorbide Mononitrate ER [Imdur] 30 mg PO DAILY #10 tablet Spironolactone [Aldactone] 25 mg PO BID #15 tablet Diet: Diabetic Activity Restrictions: Activity as Tolerated Shower Restrictions: No (fall precaution, caregiver closely monitor) Instruction Topics: Carvedilol tablets, Isosorbide Mononitrate extended- release tablets, Spironolactone tablets, Heart Failure Coping, Heart Failure Diet Changes Additional Instructions or Follow Up instructions: You may follow up your PCP in 2-3 days, follow up your car hostler in one week. Should your symptoms return or worsen, you may present ER or call 911 for help. No Smoking: If you smoke, Please STOP! Call for help. Follow-up with: Vick Hicks MD [Primary Care Provider] -
--- NOTE | 2017-12-10 12:47 | DISCHARGE SUMMARY ---
Discharge Summary Discharge Date: 12/10/17 Discharging Provider: VICENTE Primary Care Provider: Condition at Discharge: Poor Discharge Disposition: 01 Home, Self Care Discharge Facility Name: home - DIAGNOSES Admission Diagnoses: (1) Combined systolic and diastolic congestive heart failure, NYHA class 2 (2) CKD (chronic kidney disease) stage 3, GFR 30-59 ml/min (3) Diabetes mellitus type 2 in nonobese (4) Hypertension (5) COR (chronic cor pulmonale) Discharge Diagnoses with Status of Each Condition: 1) Combined systolic and diastolic congestive heart failure, NYHA class 2 pt denies SOB, pt feel great, he request to be discharged. discussed with ECHO result which shows pt has 25% EF, and pt's home meds, pt want to keep home Lasix. Add Spironolactone, imdur, Coreg to pt. (2) CKD (chronic kidney disease) stage 3, GFR 30-59 ml/min stable (3) Diabetes mellitus type 2 in nonobese stable (4) Hypertension stable (5) COR (chronic cor pulmonale) stable - HPI History of Present Illness: pt was admitted with CHF exacerbation. pt was treated with diuretics, spironolactone, beta-zana. GALI. ECHO reveals 25% EF. after treatment pt feel great, BNP is down significantly as his baseline. pt request to be d/c - ALLERGIES Allergies/Adverse Reactions: Allergies Allergy/AdvReac Type Severity Reaction Status Date / Time Penicillins Allergy Severe Hives Verified 01/29/17 11:38 acetaminophen AdvReac Severe pt reports Verified 01/29/17 11:38 [From Darvocet-N 100] cardiac arrest propoxyphene napsylate * AdvReac Severe pt reports Verified 11/20/17 13:19 [From Darvocet-N 100] cardiac arrest - MEDICATIONS Home Medications: Ambulatory Orders Medication Instructions Recorded Confirmed Aspirin [Aspir 81] 81 mg PO DAILY 05/21/13 12/09/17 Furosemide 80 mg PO BIDDIURETIC 12/09/17 12/09/17 Gabapentin 300 mg PO TID 12/09/17 12/09/17 Glipizide 5 mg PO DAILYWM 12/09/17 12/09/17 Losartan Potassium 100 mg PO DAILY 12/09/17 12/09/17 Methylphenidate HCl 20 mg PO BID 12/09/17 12/09/17 Carvedilol [Coreg] 6.25 mg PO BID #15 tablet 12/10/17 Isosorbide Mononitrate ER [Imdur] 30 mg PO DAILY #10 tablet 12/10/17 Spironolactone [Aldactone] 25 mg PO BID #15 tablet 12/10/17 - PHYSICAL EXAM AT DISCHARGE General Appearance: positive: No acute distress, Alert. negative: Lethargic Eyes Bilateral: positive: Normal inspection, PERRL, No lid inflammation, Conjunctivae nml ENT: positive: ENT inspection nml, Pharynx nml, No signs of dehydration. negative: Purulent nasal drainage, Pharyngeal erythema, Oral lesions Neck: positive: Nml inspection, Thyroid nml, No JVD, Trachea midline. negative : Thyromegaly, Lymphadenopathy (R), Lymphadenopathy (L), Stiff neck, Swelling/ bruising, Tracheal deviation Respiratory: positive: Chest non-tender, No respiratory distress, Breath sounds nml. negative: Wheezes, Rales, Rhonchi Cardiovascular: positive: Regular rate & rhythm, No gallop, Systolic murmur. negative: Irregularly irregular, Extrasystoles, Tachycardia, Bradycardia, JVD present Peripheral Pulses: positive: 2+ Abdomen: positive: Non-tender, No organomegaly, Nml bowel sounds, No distention. negative: Tenderness, Guarding, Rebound Back: positive: Nml inspection. negative: CVA tenderness (R), CVA tenderness (L ) Skin: positive: Color nml, No rash, Warm, Dry. negative: Cyanosis, Diaphoresis , Pallor Extremities: positive: Non-tender, Full ROM, Nml appearance. negative: Calf tenderness, Joint swelling, Jocelin's sign/cords Neurologic/Psychiatric: positive: Oriented x3, Motor nml, Sensation nml, Mood/ affect nml. 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 Should your symptoms return or worsen, you may present ER or call 911 for help. - TIME SPENT Time Spent in Discharge (Minutes): 50
== END 2017-12-10 13:12 | disposition home or self-care (01) ==
LOC: ED 20:12 → OBS 22:51
PROVIDERS: ADMIT Internal Medicine; ATTEND Internal Medicine
DX: I13.0 Hypertensive heart and chronic kidney disease with heart failure and stage 1 through stage 4 chronic kidney disease, or unspecified chronic kidney disease (principal); I50.43 Acute on chronic combined systolic (congestive) and diastolic (congestive) heart failure; N18.3 Chronic kidney disease, stage 3 (moderate); E11.22 Type 2 diabetes mellitus with diabetic chronic kidney disease; Z79.84 Long term (current) use of oral hypoglycemic drugs; I27.81 Cor pulmonale (chronic); E85.4 Organ-limited amyloidosis; I43 Cardiomyopathy in diseases classified elsewhere; I25.10 Atherosclerotic heart disease of native coronary artery without angina pectoris; Z79.82 Long term (current) use of aspirin; I48.2 Chronic atrial fibrillation; R00.0 Tachycardia, unspecified; R01.1 Cardiac murmur, unspecified; I87.8 Other specified disorders of veins; L97.929 Non-pressure chronic ulcer of unspecified part of left lower leg with unspecified severity; Z95.810 Presence of automatic (implantable) cardiac defibrillator; Z79.899 Other long term (current) drug therapy
CPT/HCPCS: 36415; 51701; 51798; 71046; 80048; 80053; 81001; 82550; 83036; 83690; 83735; 83880; 84484; 85025; 93005; 93306; 93975; 96365; 96366; 96375; 96376; 97116; 97161; 99284; 99285; A9270; G0378; G8978; G8979; G8980; J1650; J7040; 81003; 87086; 96374

== ENCOUNTER 2018-01-24 13:44 | Emergency (ER) | payer MEDICARE ==
[2018-01-24 14:29] LABS: BASOPHILS # (AUTO) 0.1 10^3/uL (0.0-0.1); BASOPHILS % (AUTO) 1.2 %; EOSINOPHILS # (AUTO) 0.1 10^3/uL (0.0-0.7); EOSINOPHILS % (AUTO) 0.8 %; HGB - HEMOGLOBIN 12.7 g/dL (14.0-18.0); LYMPHOCYTES # (AUTO) 0.6 10^3/uL (1.5-3.5); LYMPHOCYTES % (AUTO) 5.8 %; MEAN CORPUSCULAR HEMOGLOBIN 27.2 pg (27.0-31.0); MEAN CORPUSCULAR HGB CONC 32.2 g/dL (32.0-36.0); MEAN CORPUSCULAR VOLUME 84.5 fL (80.0-94.0); MEAN PLATELET VOLUME 8.1 fL (7.4-11.4); MONOCYTES # (AUTO) 0.9 10^3/uL (0.0-1.0); NEUTROPHILS # (AUTO) 9.1 10^3/uL (1.5-6.6); NEUTROPHILS % (AUTO) 84.2 %; PLT - PLATELET COUNT 197 10^3/uL (130-450); RED BLOOD COUNT 4.68 10^6/uL (4.70-6.10); WHITE BLOOD COUNT 10.8 x10^3/uL (4.8-10.8)
[2018-01-24 14:29] LABS: BILIRUBIN,URINE NEGATIVE (NEGATIVE); GLUCOSE, URINE (UA) >=1000 mg/dL (NEGATIVE); KETONES,URINE (UA) NEGATIVE (NEGATIVE); LEUKOCYTE ESTERASE, URINE NEGATIVE (NEGATIVE); NITRITE,URINE NEGATIVE (NEGATIVE); OCCULT BLOOD,URINE TRACE-INTA (NEGATIVE); PROTEIN,URINE NEGATIVE (NEGATIVE); UROBILINOGEN,URINE 2 E.U./dL (NORMAL)
[2018-01-24 14:30] LABS: CLARITY,URINE CLEAR (CLEAR)
[2018-01-24 14:32] LABS: RED CELL DISTRIBUTION WIDTH 19.2 % (12.0-15.0)
[2018-01-24 14:40] LABS: CREATININE 1.7 mg/dL (0.6-1.2)
--- NOTE | 2018-01-24 15:12 | ED Physician Documentation ---
History of Present Illness - Stated complaint Stated Complaint: HIGH GLUCOSE/BACK PX - Chief complaint Chief Complaint: General - Additonal information Additional information: hx from pt 87 male pmhx CAD amyloid heart dz, vfib with AICD, systolic CHFD, CKD, HTN, NIDDM has been drinking a lot of fluids recently and eating/drinking excess sugar so his sugar is running high also he got tangle up with his cane getting out of bed and fell - no head neck chest abd injury but hurt left lower back Review of Systems Constitutional: denies: Fever, Chills Cardiac: denies: Chest pain / pressure Respiratory: reports: Dyspnea. denies: Cough GI: denies: Abdominal Pain, Nausea, Vomiting, Diarrhea Skin: denies: Rash Musculoskeletal: reports: Back pain. denies: Neck pain Neurologic: denies: Focal weakness, Numbness, Headache, Head injury Endocrine: denies: Easy bruising / bleeding Immunocompromised: denies: Immunocompromised PD PAST MEDICAL HISTORY - Past Medical History Cardiovascular: Congestive heart failure, Hypertension, Coronary artery disease, Deep vein thrombosis, [place], Atrial fibrillation, Other Respiratory: COPD, Shortness of breath Endocrine/Autoimmune: Type 2 diabetes GI: None : None HEENT: Chronic hearing loss Psych: None Musculoskeletal: None Derm: None - Past Surgical History Past Surgical History: Yes Ortho: Knee replacement Cardiovascular: Pacemaker, AICD - Present Medications Home Medications: Ambulatory Orders Medication Instructions Recorded Confirmed Aspirin [Aspir 81] 81 mg PO DAILY 05/21/13 12/09/17 Furosemide 80 mg PO BIDDIURETIC 12/09/17 12/09/17 Gabapentin 300 mg PO TID 12/09/17 12/09/17 Glipizide 5 mg PO DAILYWM 12/09/17 12/09/17 Losartan Potassium 100 mg PO DAILY 12/09/17 12/09/17 Methylphenidate HCl 20 mg PO BID 12/09/17 12/09/17 Carvedilol [Coreg] 6.25 mg PO BID #15 tablet 12/10/17 Isosorbide Mononitrate ER [Imdur] 30 mg PO DAILY #10 tablet 12/10/17 Spironolactone [Aldactone] 25 mg PO BID #15 tablet 12/10/17 - Allergies Allergies/Adverse Reactions: Allergies Allergy/AdvReac Type Severity Reaction Status Date / Time Penicillins Allergy Severe Hives Verified 01/24/18 13:59 acetaminophen AdvReac Severe pt reports Verified 01/24/18 13:59 [From Darvocet-N 100] cardiac arrest propoxyphene napsylate * AdvReac Severe pt reports Verified 01/24/18 13:59 [From Darvocet-N 100] cardiac arrest - Social History Does the pt smoke?: No Smoking Status: Never smoker Does the pt drink ETOH?: No Does the pt have substance abuse?: No - Immunizations Immunizations are current?: No Immunizations: TDAP >10years/unknown, Other immun not current - POLST Patient has POLST: No PD ED PE NORMAL - Vitals Vital signs reviewed: Yes - General General: Alert and oriented X 3 - HEENT HEENT: Atraumatic, PERRL - Neck Neck: No bony TTP - Cardiac Cardiac: RRR - Respiratory Respiratory: Clear bilaterally - Abdomen Abdomen: Soft, Non tender, Other (no pulsatile mass) - Back Back: Other (left mid low back TTP) - Derm Derm: Other (small sore to ant L blue) - Extremities Extremities: No deformity (no hip TTP, full ROM s pain) - Neuro Neuro: Alert and oriented X 3, 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, No motor deficit, No sensory deficit Eye Opening: Spontaneous Motor: Obeys Commands Verbal: Oriented GCS Score: 15 Results - Vitals Vitals: Vital Signs - 24 hr 01/24/18 01/24/18 01/24/18 13:51 14:20 15:30 Temperature 36.5 C Heart Rate 107 H 65 68 Respiratory 18 15 17 Rate Blood Pressure 145/99 H 153/101 H O2 Saturation 92 96 93 01/24/18 01/24/18 01/24/18 15:33 17:40 18:16 Temperature Heart Rate 69 64 62 Respiratory 18 12 16 Rate Blood Pressure 153/101 H 165/95 H 163/85 H O2 Saturation 98 96 94 Oxygen O2 Source Room air - EKG (time done) 1423 Rate: Rate (enter#) (66) Rhythm: Atrial fibrillation [place]: LAD Intervals: No: Normal [place] Ischemia: Other (concave up ST elev laterally could be ischemic but very similar to prior EKG) - Labs Labs: Laboratory Tests 01/24/18 01/24/18 01/24/18 14:17 14:20 14:20 WBC 10.8 RBC 4.68 L Hgb 12.7 L Hct 39.5 L MCV 84.5 MCH 27.2 MCHC 32.2 RDW 19.2 H Plt Count 197 MPV 8.1 Neut # (Auto) 9.1 H Lymph # (Auto) 0.6 L [place] # (Auto) 0.9 Eos # (Auto) 0.1 Baso # (Auto) 0.1 Absolute Nucleated RBC 0.00 Nucleated RBC % 0.0 Sodium 127 L Potassium 3.7 Chloride 89 L Carbon Dioxide 30 Anion Gap 8.0 BUN 36 H Creatinine 1.7 H Estimated GFR (MDRD) 46 L Glucose 481 H POC Whole Bld Glucose Lactic Acid Calcium 9.0 Troponin I Urine Color YELLOW Urine Clarity CLEAR Urine pH 6.0 Ur Specific [place] 1.010 Urine Protein NEGATIVE Urine Glucose (UA) >=1000 H Urine Ketones NEGATIVE Urine Occult Blood TRACE-INTA Urine Nitrite NEGATIVE Urine Bilirubin NEGATIVE Urine Urobilinogen 2 H Ur Leukocyte Esterase NEGATIVE Ur Microscopic Review NOT INDICATED Urine Culture Comments NOT INDICATED 01/24/18 01/24/18 01/24/18 14:20 14:22 17:48 WBC RBC Hgb Hct MCV MCH MCHC RDW Plt Count MPV Neut # (Auto) Lymph # (Auto) [place] # (Auto) Eos # (Auto) Baso # (Auto) Absolute Nucleated RBC Nucleated RBC % Sodium Potassium Chloride Carbon Dioxide Anion Gap BUN Creatinine Estimated GFR (MDRD) Glucose POC Whole Bld Glucose 415 H Lactic Acid 1.2 Calcium Troponin I 0.04 Urine Color Urine Clarity Urine pH Ur Specific [place] Urine Protein Urine Glucose (UA) Urine Ketones Urine Occult Blood Urine Nitrite Urine Bilirubin Urine Urobilinogen Ur Leukocyte Esterase Ur Microscopic Review Urine Culture Comments 01/24/18 18:58 WBC RBC Hgb Hct MCV MCH MCHC RDW Plt Count MPV Neut # (Auto) Lymph # (Auto) [place] # (Auto) Eos # (Auto) Baso # (Auto) Absolute Nucleated RBC Nucleated RBC % Sodium Potassium Chloride Carbon Dioxide Anion Gap BUN Creatinine Estimated GFR (MDRD) Glucose POC Whole Bld Glucose 262 H Lactic Acid Calcium Troponin I Urine Color Urine Clarity Urine pH Ur Specific [place] Urine Protein Urine Glucose (UA) Urine Ketones Urine Occult Blood Urine Nitrite Urine Bilirubin Urine Urobilinogen Ur Leukocyte Esterase Ur Microscopic Review Urine Culture Comments - Rads (name of study) CXR Radiology: See rad report (cardiomegaly, no acute) L spine Radiology: See rad report (no acute) PD MEDICAL DECISION MAKING - ED course ED course: hyperglycemia 2/2 non compliance with diet no apparent infection based on hx and exam though will check CXR and urine (neg) not acidotic, no ketones in urine gave small bolus 2/2 underlying cardiac issues and insulin CXR neg L spine neg when blood sugar down will dc only down to 415 after insulin 4 so gave 4 more now 263 will dc - Sepsis Event Vital Signs: Vital Signs - 24 hr 01/24/18 01/24/18 01/24/18 13:51 14:20 15:30 Temperature 36.5 C Heart Rate 107 H 65 68 Respiratory 18 15 17 Rate Blood Pressure 145/99 H 153/101 H O2 Saturation 92 96 93 01/24/18 01/24/18 01/24/18 15:33 17:40 18:16 Temperature Heart Rate 69 64 62 Respiratory 18 12 16 Rate Blood Pressure 153/101 H 165/95 H 163/85 H O2 Saturation 98 96 94 Oxygen O2 Source Room air Departure - Departure Disposition: 01 Home, Self Care Clinical Impression: Hyperglycemia due to type 2 diabetes mellitus Qualifiers: Diabetes mellitus chcf insulin use: 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 Qualified Code(s): E11.65 - Type 2 diabetes mellitus with hyperglycemia Low back strain Qualifiers: Encounter type: initial encounter Qualified Code(s): S39.012A - Strain of muscle, fascia and tendon of lower back, initial encounter Condition: Good Instructions: ED Sprain Strain Lumbar, ED Hyperglycemia Diabetic Follow-Up: Vick Hicks MD [Primary Care Provider] - Comments: Your labs looks fine except for the high blood sugar and chronic renal insufficiency The xrays show no broken back bones or ribs The urine does not show any blood to suggest a kidney injury The injury appears to be soft tissue and I have prescribed lidocaine patches to be used as needed for the pain - may wear one patch a day for up to 12 hr Please try to be better about your diabetic diet and avoid excess sugars etc. Take your medications as prescribed Follow up with your PMD for a recheck next week
[2018-01-24] MEDS ORDERED: LIDOCAINE PATCH 5% TOP PRN (15:13)
--- NOTE | 2018-01-24 15:14 | XRAY Report ---
Reason: hypoxia Procedure Date: 01/24/2018 Accession Number: [id number] / [id number] Procedure: XR - Chest 1 View X-Ray CPT Code: 17028 FULL RESULT: EXAM: CHEST RADIOGRAPHY EXAM DATE: 01/24/2018 02:56 PM. CLINICAL HISTORY: Dyspnea. COMPARISON: CHEST 2 VIEW 12/08/2017 8:56 PM. TECHNIQUE: 1 view. FINDINGS: Lungs/Pleura: No focal opacities evident. No pleural effusion. No pneumothorax. Mediastinum: There is cardiomegaly. There is thoracic aortic calcification. Other: Left subclavian dual-lead ICD is in place. IMPRESSION: 1. There is cardiomegaly. 2. No acute intrathoracic plain film abnormality. RADIA
--- NOTE | 2018-01-24 16:06 | XRAY Report ---
Reason: fall Procedure Date: 01/24/2018 Accession Number: [id number] / [id number] Procedure: XR - Lumbar Spine 2 View CPT Code: FULL RESULT: EXAM: LUMBOSACRAL SPINE RADIOGRAPHY EXAM DATE: 01/24/2018 03:57 PM. CLINICAL HISTORY: Fall. COMPARISONS: ABDOMEN/PELVIS W/O 11/20/2017 6:07 PM. TECHNIQUE: 2 views. FINDINGS: Alignment: No evidence of dislocation. There is degenerative anterolisthesis of L5 on S1. Bones: No fractures or focal bony lesions. Disks/Facets: There is lower lumbar spine disk space narrowing. There is multilevel facet arthrosis. Sacroiliac Joints: Unremarkable. Soft Tissues: No unexpected findings. IMPRESSION: No evidence of lumbar spine fracture or dislocation. RADIA
[2018-01-24] MEDS ORDERED: INSULIN REGULAR HUMAN 100 UNIT/1 ML 10 ML MDV IVP STA ×2 (16:25→18:07)
[2018-01-24] MEDS ORDERED: SODIUM CHLORIDE 0.9% 500 ML IV ONE (16:25)
[2018-01-24 19:20] VITALS: BP 151/96
== END 2018-01-24 19:20 | disposition home or self-care (01) ==
LOC: ED 13:44
DX: S39.012A Strain of muscle, fascia and tendon of lower back, initial encounter (principal); E11.65 Type 2 diabetes mellitus with hyperglycemia; I10 Essential (primary) hypertension; I48.91 Unspecified atrial fibrillation; I50.9 Heart failure, unspecified; Z79.82 Long term (current) use of aspirin; Z79.84 Long term (current) use of oral hypoglycemic drugs; Z91.11 Patient's noncompliance with dietary regimen; W06.XXXA Fall from bed, initial encounter
CPT/HCPCS: 71045; 72100; 80048; 81003; 83605; 84484; 85025; 87040; 93005; 99284; A9270; J1815; 36415; 81001; 87086

== ENCOUNTER 2018-02-05 21:31 | Inpatient (IN) | payer MEDICARE ==
[2018-02-05 22:11] LABS: BASOPHILS # (AUTO) 0.1 10^3/uL (0.0-0.1); BASOPHILS % (AUTO) 0.7 %; EOSINOPHILS % (AUTO) 0.5 %; HGB - HEMOGLOBIN 13.7 g/dL (14.0-18.0); LYMPHOCYTES # (AUTO) 1.5 10^3/uL (1.5-3.5); LYMPHOCYTES % (AUTO) 16.6 %; MEAN CORPUSCULAR HEMOGLOBIN 27.4 pg (27.0-31.0); MEAN CORPUSCULAR HGB CONC 31.7 g/dL (32.0-36.0); MEAN CORPUSCULAR VOLUME 86.5 fL (80.0-94.0); MEAN PLATELET VOLUME 8.3 fL (7.4-11.4); MONOCYTES # (AUTO) 0.8 10^3/uL (0.0-1.0); MONOCYTES % (AUTO) 8.7 %; NEUTROPHILS # (AUTO) 6.8 10^3/uL (1.5-6.6); NEUTROPHILS % (AUTO) 73.5 %; PLT - PLATELET COUNT 235 10^3/uL (130-450); RED BLOOD COUNT 5.01 10^6/uL (4.70-6.10); RED CELL DISTRIBUTION WIDTH 21.6 % (12.0-15.0); WHITE BLOOD COUNT 9.2 x10^3/uL (4.8-10.8)
[2018-02-05] MEDS ORDERED: BUMETANIDE 1 MG/4 ML VIAL IVP STA (22:16)
[2018-02-05] MEDS ORDERED: NITROGLYCERIN 2% PASTE TOP STA (22:17)
[2018-02-05] MEDS ORDERED: ASPIRIN CHEW 81 MG TABLET PO STA (22:17)
[2018-02-05 22:26] LABS: PLATELET ESTIMATE, MANUAL NORMAL (130-450,000) (NORMAL); PLATELET MORPHOLOGY NORMAL APPEARANCE (NORMAL)
[2018-02-05 22:29] LABS: BILIRUBIN,TOTAL 6.5 mg/dL (0.2-1.0); CALCIUM 9.1 mg/dL (8.5-10.3); CREATININE 1.9 mg/dL (0.6-1.2); TOTAL PROTEIN 7.9 g/dL (6.7-8.2)
--- NOTE | 2018-02-05 22:36 | XRAY Report ---
Reason: diff breathing Procedure Date: 02/05/2018 Accession Number: [id number] / [id number] Procedure: XR - Chest 1 View X-Ray CPT Code: 45194 FULL RESULT: EXAM: CHEST RADIOGRAPHY. EXAM DATE: 02/05/2018 10:14 PM. CLINICAL HISTORY: Shortness of breath, difficulty breathing, congestive heart failure. COMPARISON: Chest 1 view 01/24/2018 2:45 PM. TECHNIQUE: 1 view. FINDINGS: Lungs/Pleura: Small calcified right lung base granuloma. Pulmonary vascular congestion. Mild septal thickening. Mediastinum: Severe enlargement of the cardiac silhouette. Other: There is a left subclavian pacemaker device with the tips at the right atrium and right ventricle apex. IMPRESSION: Mild CHF pattern. No significant change from the prior. RADIA
[2018-02-05 23:00] LABS: BILIRUBIN,URINE NEGATIVE (NEGATIVE); GLUCOSE, URINE (UA) NEGATIVE (NEGATIVE); KETONES,URINE (UA) NEGATIVE (NEGATIVE); LEUKOCYTE ESTERASE, URINE NEGATIVE (NEGATIVE); NITRITE,URINE NEGATIVE (NEGATIVE); OCCULT BLOOD,URINE SMALL (NEGATIVE); PH,URINE 5.5 PH (5.0-7.5); PROTEIN,URINE 30 mg/dL (NEGATIVE); UROBILINOGEN,URINE >=8.0 E.U./dL (NORMAL)
[2018-02-05 23:04] LABS: CLARITY,URINE CLEAR (CLEAR)
[2018-02-05 23:15] LABS: SQUAMOUS EPITHELIAL CELL,UR FEW Squamous (<= Few)
[2018-02-05 23:16] LABS: BACTERIA,URINE Rare /HPF (None Seen)
--- NOTE | 2018-02-05 23:27 | ED Physician Documentation ---
PD HPI DYSPNEA - Stated complaint Stated Complaint: SOA - Chief complaint Chief Complaint: Ext Problem - History obtained from History obtained from: Patient, Family - History of Present Illness Timing - onset: How many weeks ago (2) Timing - onset during: Rest, Exertion Timing - details: Gradual onset, Still present Improved by: O2 Worsened by: Exertion, Laying flat Associated symptoms: No: Fever, Cough, Wheezing, Chest pain / discomfort Similar symptoms before: Work up / diagnostics, Treatment Recently seen: Not recently seen - Additional information Additional information: Patient is an 87 year old male with a history of chf who is presenting to the emergency department for worsening leg swelling and shortness of breath. Patient's last ef is about 20%. Patient has been trying to work with his doctor and increasing his diuretic doses but has had little success. patient states that the symptoms have been worsening over the last two weeks, but he cannot sleep anymore so he came in for help. Review of Systems Constitutional: denies: Fever, Chills Cardiac: reports: Chest pain / pressure, Pedal edema Respiratory: reports: Dyspnea. denies: Cough, Wheezing GI: denies: Nausea, Vomiting : reports: Unable to Void. denies: Dysuria Skin: denies: Rash, Lesions Musculoskeletal: reports: Extremity swelling Neurologic: reports: Generalized weakness PD PAST MEDICAL HISTORY - Past Medical History Past Medical History: Yes Cardiovascular: Congestive heart failure, Hypertension, Coronary artery disease, Deep vein thrombosis, [place], Atrial fibrillation, Other Respiratory: COPD, Shortness of breath Endocrine/Autoimmune: Type 2 diabetes GI: None : None HEENT: Chronic hearing loss Psych: None Musculoskeletal: None Derm: None - Past Surgical History Past Surgical History: Yes Ortho: Knee replacement Cardiovascular: Pacemaker, AICD - Present Medications Home Medications: Ambulatory Orders Medication Instructions Recorded Confirmed Gabapentin 300 mg PO TID 12/09/17 02/06/18 Glipizide 5 mg PO DAILYWM 12/09/17 02/06/18 Methylphenidate HCl 20 mg PO BID 12/09/17 02/06/18 Bumetanide 2 mg PO DAILY 02/06/18 02/06/18 Carvedilol 25 mg PO BID 02/06/18 02/06/18 Metformin HCl 1 tab PO DAILY 02/06/18 02/06/18 - Allergies Allergies/Adverse Reactions: Allergies Allergy/AdvReac Type Severity Reaction Status Date / Time Penicillins Allergy Severe Hives Verified 02/05/18 21:47 acetaminophen AdvReac Severe pt reports Verified 02/05/18 21:[address] [facility] cardiac arrest propoxyphene napsylate * AdvReac Severe pt reports Verified 02/05/18 21:47 [facility] cardiac arrest - Social History Does the pt smoke?: No Smoking Status: Never smoker Does the pt drink ETOH?: No Does the pt have substance abuse?: No - Immunizations Immunizations are current?: No Immunizations: TDAP >10years/unknown, Other immun not current - POLST Patient has POLST: No PD ED PE NORMAL - Vitals Vital signs reviewed: Yes - General General: Alert and oriented X 3 - HEENT HEENT: Atraumatic - Derm Derm: Normal color - Neuro Neuro: Alert and oriented X 3, No motor deficit, Normal speech Eye Opening: Spontaneous Motor: Obeys Commands Verbal: Oriented GCS Score: 15 PD ED PE EXPANDED - Neck Neck: JVD present - Respiratory Respiratory: Accessory mm use, Decreased breath sounds, Right lower lobe, Left lower lobe - Abdomen Abdomen: Other (pitting edema) - Extremities Extremities: Pedal edema bilateral (plus 4 edema up both legs) Results - Vitals Vitals: Vital Signs - 24 hr 02/05/18 02/05/18 02/05/18 21:35 22:25 23:02 Temperature 36.0 C L Heart Rate 80 70 76 Respiratory 15 20 22 Rate Blood Pressure 157/110 H 164/115 H 160/116 H O2 Saturation 95 95 94 02/05/18 23:19 Temperature Heart Rate 76 Respiratory 22 Rate Blood Pressure 156/116 H O2 Saturation 98 Oxygen O2 Source Room air - EKG (time done) 2143 Rate: Rate (enter#) (83) Rhythm: Atrial fibrillation, Other (occasionally paced and occasional pvc) QRS: LVH Compare to prior EKG: Unchanged from prior EKG - Labs Labs: Laboratory Tests 02/05/18 02/05/18 02/05/18 21:55 21:55 21:55 WBC 9.2 RBC 5.01 Hgb 13.7 L Hct 43.3 MCV 86.5 MCH 27.4 MCHC 31.7 L RDW 21.6 H Plt Count 235 MPV 8.3 Neut # (Auto) 6.8 H Lymph # (Auto) 1.5 [place] # (Auto) 0.8 Eos # (Auto) 0.0 Baso # (Auto) 0.1 Absolute Nucleated RBC 0.00 Nucleated RBC % 0.1 Manual Slide Review Indicated WBC Morphology NORMAL APPEARANCE Platelet Estimate NORMAL (130-450,000) Platelet Morphology NORMAL APPEARANCE RBC Morph Micro Appear 1+ POLYCHROMASIA Sodium 133 L Potassium 4.1 Chloride 94 L Carbon Dioxide 26 Anion Gap 13.0 BUN 38 H Creatinine 1.9 H Estimated GFR (MDRD) 41 L Glucose 100 Calcium 9.1 Total Bilirubin 6.5 H AST 34 ALT 22 Alkaline Phosphatase 197 H Troponin I 0.04 B-Natriuretic Peptide Total Protein 7.9 Albumin 4.0 Globulin 3.9 Albumin/Globulin Ratio 1.0 Lipase 25 Urine Color Urine Clarity Urine pH Ur Specific [place] Urine Protein Urine Glucose (UA) Urine Ketones Urine Occult Blood Urine Nitrite Urine Bilirubin Urine Urobilinogen Ur Leukocyte Esterase Urine RBC Urine WBC Ur Squamous Epith Cells Urine Bacteria Ur Microscopic Review Urine Culture Comments 02/05/18 02/05/18 21:55 22:46 WBC RBC Hgb Hct MCV MCH MCHC RDW Plt Count MPV Neut # (Auto) Lymph # (Auto) [place] # (Auto) Eos # (Auto) Baso # (Auto) Absolute Nucleated RBC Nucleated RBC % Manual Slide Review WBC Morphology Platelet Estimate Platelet Morphology RBC Morph Micro Appear Sodium Potassium Chloride Carbon Dioxide Anion Gap BUN Creatinine Estimated GFR (MDRD) Glucose Calcium Total Bilirubin AST ALT Alkaline Phosphatase Troponin I B-Natriuretic Peptide 6057.00 H Total Protein Albumin Globulin Albumin/Globulin Ratio Lipase Urine Color YELLOW Urine Clarity CLEAR Urine pH 5.5 Ur Specific [place] 1.010 Urine Protein 30 H Urine Glucose (UA) NEGATIVE Urine Ketones NEGATIVE Urine Occult Blood SMALL H Urine Nitrite NEGATIVE Urine Bilirubin NEGATIVE Urine Urobilinogen >=8.0 H Ur Leukocyte Esterase NEGATIVE Urine RBC 6-10 H Urine WBC 0-3 Ur Squamous Epith Cells FEW Squamous Urine Bacteria Rare Ur Microscopic Review INDICATED Urine Culture Comments NOT INDICATED - Rads (name of study) chest x-ray Radiology: Final report received (pulmonary vascular congestion) PD MEDICAL DECISION MAKING - ED course Complexity details: reviewed old records, reviewed results, re-evaluated patient, considered differential, d/w patient, d/w family ED course: Patient was seen and examined at bedside. ekg was performed and was relatively unremarkable. IV access was gained and labs were drawn. chest x-ray was ordered. Patient's previous records were reviewed and patient was found to have an EF of about 20%. Patient had a hard time producing urine. Patient was treated with 1mg of bumex IV. Patient was also treated with nitro past. chest x-ray showed pulmonary congestion and patient's bnp was elevated to over 6000. patient would likely require a few days of diuretics. Case was discussed with the hospitalist and patient was admitted for further evaluation and care. - Sepsis Event Vital Signs: Vital Signs - 24 hr 02/05/18 02/05/18 02/05/18 21:35 22:25 23:02 Temperature 36.0 C L Heart Rate 80 70 76 Respiratory 15 20 22 Rate Blood Pressure 157/110 H 164/115 H 160/116 H O2 Saturation 95 95 94 02/05/18 23:19 Temperature Heart Rate 76 Respiratory 22 Rate Blood Pressure 156/116 H O2 Saturation 98 Oxygen O2 Source Room air Departure - Departure Disposition: 66 [facility] DC/Xfer Clinical Impression: Acute CHF (congestive heart failure), CKD (chronic kidney disease) stage 3, GFR 30-59 ml/min Condition: Stable
[2018-02-05] MEDS ORDERED: oxyCODONE 5 MG TABLET PO PRN (23:35)
[2018-02-05] MEDS ORDERED: PROCHLORPERAZINE 10 MG/2 ML VIAL IVP PRN (23:35)
[2018-02-05] MEDS ORDERED: PROMETHAZINE 25 MG/1 ML VIAL IM PRN (23:35)
[2018-02-05] MEDS ORDERED: ONDANSETRON 4 MG/2 ML VIAL IVP PRN (23:35)
[2018-02-05] MEDS ORDERED: metOLazone 2.5 MG TABLET PO SCH (23:45)
--- NOTE | 2018-02-05 23:52 | HISTORY & PHYSICAL EXAMINATION ---
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 fib arrest in 2009 currently with an AICD in place, amyloid cardiomyopathy, persistent atrial fibrillation, hypertension, type 2 diabetes mellitus, chronic kidney disease stage III, osteoarthritis, BPH and chronic hearing loss who presented to the emergency department with a chief complaint of shortness of breath. This very pleasant gentleman was most recently hospitalized here at [facility] in December 2017 for CHF exacerbation. Since that time the patient has had a gradual decline in his health and mobility due to his congestive heart failure. The patient now has marked limitation on physical activities to the point where he uses a scooter around the house and states that he cannot walk more than 5 feet without having to stop and catch his breath due to extreme shortness of breath and fatigue. The patient states that the symptoms have progressed over the last 2 months but more so over the last month. He states that recently he has began to notice that he has had increasing abdominal distention and bloating which is now led to him becoming very nauseated. He states that he has increasing shortness of breath now even at rest. He states that he is having increasing edema in his legs all the way up to his knees. He states that he is gained more than 10 pounds over the last month. He did see his primary care physician regarding these worsening symptoms and had his Lasix switched to Bumex but he states that he has not had very good response to the Bumex. He states that with his Lasix he was getting itching which has stopped now that he is on the Bumex however he is having decreased urine output recently. He states that he is having trouble sleeping at night because he so short of breath and cannot lie flat. He states he almost has to sit straight up in order to sleep. He denies any chest pain or palpitations. He denies any abdominal pain. He does state that he has had decreased appetite recently and states that some days food just does not taste good. Patient denies any headaches, blurred vision, runny nose, sore throat, nasal congestion, difficulty swallowing, diarrhea, constipation, urinary urgency, urinary frequency, dysuria, joint pain, joint swelling, back pain, neck stiffness, skin rash, skin changes, hair loss, recent unintentional weight loss, polyuria, polydipsia, fevers, chills, cough, night sweats or any focal neurologic deficits. On presentation to the emergency department the patient is afebrile and heart rate is controlled. The patient is however hypertensive with a blood pressure of 157/110 and slightly tachypneic but does not appear to be in any respiratory distress. The patient is oxygenating well on room air. On examination the patient has severe lower extremity swelling, appears jaundiced and has abdominal distention and abdominal wall swelling. The patient underwent routine lab work which revealed a BNP of 6057 which is elevated from his baseline of around 2000. The patient also had an elevated creatinine of 1.9 which is mildly elevated from his baseline. The patient's bilirubin was found to be elevated at 6.5 which is the highest that it has ever been. The patient's chest x-ray did reveal CHF. Given the patient's ongoing symptoms and his poor response to oral diuretics the patient is being admitted for congestive heart failure exacerbation and will likely need several days of hospitalization with IV diuretic treatment. In the emergency department the patient did receive a dose of IV Bumex and Nitropaste. History - Past Medical History Cardiovascular: reports: Congestive heart failure, Hypertension, Coronary artery disease, Deep vein thrombosis, CA, Atrial fibrillation, Other (Amyloid Cardiomyopathy ) Respiratory: reports: COPD, Shortness of breath Endocrine/Autoimmune: reports: Type 2 diabetes GI: reports: None : reports: Benign prostate hypertrophy, Renal insuffiency HEENT: reports: Chronic hearing loss Psych: reports: None Musculoskeletal: reports: Osteoarthritis Derm: reports: None MRSA Hx?: No - Past Surgical History Ortho: reports: Knee replacement Cardiovascular: reports: Pacemaker, AICD - Family & Social History Family History: Mother: , Cancer, Sister: Alive and Well, Brother: Alive and Well Family History Comment/Other: Never knew his father Living arrangement: At home Living Situation: With spouse/s.o. Social History Notes: The patient was born in [place], grew up in [place]. He came to [facility] to come help his daughter and son-in-law with their work and help raise the grandchildren. He has been on [facility] for more than 20 years now. 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 He lives with his of 65 years in their own home in [place]. He started smoking at the age of 10 and stop smoking 40 years ago was up to 1 pack/day. He has no history of alcohol abuse. He denies any history of recreational substance abuse. - POLST Patient has POLST: No POLST Status: Full Code Meds/Allgy - Home Medications Home Medications: Ambulatory Orders Medication Instructions Recorded Confirmed Gabapentin 300 mg PO TID 12/09/17 02/06/18 Glipizide 5 mg PO DAILYWM 12/09/17 02/06/18 Methylphenidate HCl 20 mg PO BID 12/09/17 02/06/18 Bumetanide 2 mg PO DAILY 02/06/18 02/06/18 Carvedilol 25 mg PO BID 02/06/18 02/06/18 Metformin HCl 1 tab PO DAILY 02/06/18 02/06/18 - Allergies Allergies/Adverse Reactions: Allergies Allergy/AdvReac Type Severity Reaction Status Date / Time Penicillins Allergy Severe Hives Verified 02/05/18 21:47 acetaminophen AdvReac Severe pt reports Verified 02/05/18 21:47 [From Darvocet-N 100] cardiac arrest propoxyphene napsylate * AdvReac Severe pt reports Verified 02/05/18 21:47 [From Darvocet-N 100] cardiac arrest Review of Systems - Other Findings Other Findings: A comprehensive review of systems was performed the pertinent positives and negatives are stated above in the HPI and the remainder of the review of systems is negative. Prior Level of Functionality: The patient is extremely limited with his daily activities. He states that he is able to take a shower by sitting in a seat but even that is becoming increa singly difficult due to his shortness of breath and increasing fatigue with any activity. The patient states that he does dress himself but his takes care of any cooking or any other cleaning around the house. He states that he is limited to a scooter which allows him to get around the home. He states that just walking 5 feet he has to stop and catch his breath as he becomes extremely short of breath. He states that his still works at [employer] and he does stay at home alone for several hours in the day. They do not have any caregiver support. The patient has family nearby in the area however they are not available all the time as they have their own lives and do work. Exam - Vital Signs Reviewed Vital Signs: Yes Vital Signs: Vital Signs x48h Temp Pulse Resp BP Pulse Ox 02/05/18 23:19 76 22 156/116 H 98 02/05/18 23:02 76 22 160/116 H 94 02/05/18 22:25 70 20 164/115 H 95 02/05/18 21:35 36.0 C L 80 15 157/110 H 95 - Physical Exam General Appearance: positive: No acute distress, Alert, Other (Scleral icterus) Eyes Bilateral: positive: Normal inspection, PERRL, EOMI, No lid inflammation, Conjunctivae nml, Other (Scleral icterus) ENT: positive: ENT inspection nml, Pharynx nml, No signs of dehydration. negative: Purulent nasal drainage, Pharyngeal erythema, Oral lesions Neck: positive: Nml inspection, Thyroid nml, Trachea midline. negative: Thyromegaly, Lymphadenopathy (R), Lymphadenopathy (L), Stiff neck, Carotid bruit, Tracheal deviation Respiratory: positive: Chest non-tender, No respiratory distress, Rales (Bilateral crackles about [address] up the lung.). negative: Wheezes, Rhonchi Cardiovascular: positive: Irregularly irregular, PMI displaced laterally, JVD present, Systolic murmur, Gallop/S3, Other (Right ventricular lift) Peripheral Pulses: positive: 2+ Abdomen: positive: Non-tender, Nml bowel sounds, Hepatomegaly, Other (Distended abdomen with abdominal wall edema) Back: positive: Nml inspection. negative: CVA tenderness (R), CVA tenderness (L) Skin: positive: No rash, Warm, Dry, Other (Jaundiced). negative: Cyanosis, Pal daisy Extremities: positive: Non-tender, Full ROM, Pedal edema (4+ pitting edema of bilateral LE up to the knees) Neurologic/Psychiatric: positive: Oriented x3, CN's nml (2-12), Motor nml, Sensation nml, Mood/affect nml Conclusion/Plan - Problem List (1) Combined systolic and diastolic heart failure, NYHA class 3 Conclusion/Plan: 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 On the patient's most recent echocardiogram from December of this year the patient's ejection fraction was 20-25%, he had a moderate right ventricular enlargement, he had moderately impaired right ventricular systolic function, moderate mitral regurgitation, severely abnormal right heart pressures and a right ventricular systolic pressure of 77. The patient has both right and left-sided heart failure which is why he has severe shortness of breath along with hepatic congestion and severe edema of his abdominal wall as well as his bilateral lower extremities. At this point the patient is NYHA class III and nearly class IV with severe symptoms with just mild activity. The patient is limited to a scooter to get around the home. He can barely walk 5 feet without having to stop because of shortness of breath and fatigue. This is all progressed over the last month and is likely secondary to a CHF exacerbation. Plan: IV Bumex 1 mg twice daily Give patient one-time dose of Zaroxolyn Strict I's and O's Daily weights 2 L fluid restriction 2 g sodium restriction Continue patient's Coreg We will place the patient back on Imdur, Cozaar and spironolactone given his hypertension Placed on Nitropaste Monitored BNP Speak further with the patient about his goals of care and consider a palliative care consult. Currently in the presence of the patient's son the patient agreed with his son to be a full code but stated that he needs to think it over and talk with his . No need for an echocardiogram given the patient just had an echo 2 months ago. Patient will likely need 2-3 days of diuresis by IV diuretic (2) Hypertension Conclusion/Plan: Patient has a history of hypertension and on presentation to the emergency department the patient is severely hypertensive with blood pressure of 157/110. The patient was given Nitropaste in the emergency department with minimal response. The patient will be placed on his home medication of carvedilol, Imdur and spironolactone. He will continue on Nitropaste and we will place him on Bumex 1 mg IV twice daily. The patient's hypertension is likely worsening his pulmonary edema and CHF. It is pertinent that we get it under control. Qualifiers: Hypertension type: essential hypertension Qualified Code(s): I10 - Essential (primary) hypertension (3) Acute renal failure superimposed on stage 3 chronic kidney disease Conclusion/Plan: Patient has a history of chronic kidney disease stage III. On presentation the patient's creatinine is elevated up to 1.9. The patient appears to have acute on chronic renal failure. This appears to be secondary to cardiorenal syndrome as patient is congested and is having poor flow to his kidneys as is evident by the elevated BUN. The patient will be treated with IV Lasix and we will continue to monitor his creatinine. We will avoid any nephrotoxic agents. Qualifiers: Acute renal failure type: unspecified Qualified Code(s): N17.9 - Acute kidney failure, unspecified; N18.3 - Chronic kidney disease, stage 3 (moderate) (4) Elevated bilirubin Conclusion/Plan: Patient has had chronically elevated bilirubin ranging from 2-5 today his bilirubin is elevated to 6.5 which is the highest that it has ever been. The patient's bilirubin is likely elevated secondary to liver congestion from his severe congestive heart failure with cor pulmonale. The patient has had a recent CT of his abdomen and pelvis which did show ascites but also there was concern for some lesions on his kidney. Given the patient's elevated bilirubin and history of renal lesions we will get an abdominal ultrasound while the patient is hospitalized. Patient will be treated with IV Bumex and other treatment for CHF and we will continue to monitor his bilirubin. I believe that with the treatment of his CHF his bilirubin will improve. (5) Hyponatremia Conclusion/Plan: The patient does have mild hyponatremia with a sodium of 133. The patient appears to have hypovolemic hyponatremia. Patient will be treated with IV Bumex and we will continue to monitor the patient's sodium. Is expected that his sodium will improve with treatment of his CHF. (6) Diabetes Conclusion/Plan: The patient has a history of type 2 diabetes and does not insulin-dependent. The patient uses metformin and glipizide at home. On presentation the patient's blood glucose is well controlled. 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 The patient uses gabapentin at home for his peripheral neuropathy. The patient's gabapentin will be continued while he is hospitalized. Qualifiers: Peripheral neuropathy type: polyneuropathy associated with underlying disease Qualified Code(s): G63 - Polyneuropathy in diseases classified elsewhere - Lab Results Lab results reviewed: Yes Fish Bones: 02/05/18 21:55 02/05/18 21:55 Other Lab Results: Laboratory Results WBC 9.2 x10^3/uL (4.8-10.8) 02/05/18 21:55 RBC 5.01 10^6/uL (4.70-6.10) 02/05/18 21:55 Hgb 13.7 g/dL (14.0-18.0) L 02/05/18 21:55 Hct 43.3 % (42.0-52.0) 02/05/18 21:55 MCV 86.5 fL (80.0-94.0) 02/05/18 21:55 MCH 27.4 pg (27.0-31.0) 02/05/18 21:55 MCHC 31.7 g/dL (32.0-36.0) L 02/05/18 21:55 RDW 21.6 % (12.0-15.0) H 02/05/18 21:55 Plt Count 235 10^3/uL (130-450) 02/05/18 21:55 MPV 8.3 fL (7.4-11.4) 02/05/18 21:55 Neut # (Auto) 6.8 10^3/uL (1.5-6.6) H 02/05/18 21:55 Lymph # (Auto) 1.5 10^3/uL (1.5-3.5) 02/05/18 21:55 [place] # (Auto) 0.8 10^3/uL (0.0-1.0) 02/05/18 21:55 Eos # (Auto) 0.0 10^3/uL (0.0-0.7) 02/05/18 21:55 Baso # (Auto) 0.1 10^3/uL (0.0-0.1) 02/05/18 21:55 Absolute Nucleated RBC 0.00 x10^3/uL 02/05/18 21:55 Nucleated RBC % 0.1 /100WBC 02/05/18 21:55 Manual Slide Review Indicated 02/05/18 21:55 WBC Morphology NORMAL APPEARANCE (NORMAL) 02/05/18 21:55 Platelet Estimate NORMAL (130-450,000) (NORMAL) 02/05/18 21:55 Platelet Morphology NORMAL APPEARANCE (NORMAL) 02/05/18 21:55 RBC Morph Micro Appear 3+ ANISOCYTOSIS (NORMAL) 1+ HYPOCHROMASIA (NORMAL) 1+ OVALOCYTES (NORMAL) 1+ SCHISTOCYTES (NORMAL) 1+ POLYCHROMASIA (NORMAL) 02/05/18 21:55 RBC Morph Micro Appear 3+ ANISOCYTOSIS (NORMAL) 1+ HYPOCHROMASIA (NORMAL) 1+ OVALOCYTES (NORMAL) 1+ SCHISTOCYTES (NORMAL) 1+ POLYCHROMASIA (NORMAL) 02/05/18 21:55 RBC Morph Micro Appear 3+ ANISOCYTOSIS (NORMAL) 1+ HYPOCHROMASIA (NORMAL) 1+ OVALOCYTES (NORMAL) 1+ SCHISTOCYTES (NORMAL) 1+ POLYCHROMASIA (NORMAL) 02/05/18 21:55 RBC Morph Micro Appear 3+ ANISOCYTOSIS (NORMAL) 1+ HYPOCHROMASIA (NORMAL) 1+ OVALOCYTES (NORMAL) 1+ SCHISTOCYTES (NORMAL) 1+ POLYCHROMASIA (NORMAL) 02/05/18 21:55 RBC Morph Micro Appear 3+ ANISOCYTOSIS (NORMAL) 1+ HYPOCHROMASIA (NORMAL) 1+ OVALOCYTES (NORMAL) 1+ SCHISTOCYTES (NORMAL) 1+ POLYCHROMASIA (NORMAL) 02/05/18 21:55 Sodium 133 mmol/L (135-145) L 02/05/18 21:55 Potassium 4.1 mmol/L (3.5-5.0) 02/05/18 21:55 Chloride 94 mmol/L (101-111) L 02/05/18 21:55 Carbon Dioxide 26 mmol/L (21-32) 02/05/18 21:55 Anion Gap 13.0 (6-13) 02/05/18 21:55 BUN 38 mg/dL (6-20) H 02/05/18 21:55 Creatinine 1.9 mg/dL (0.6-1.2) H 02/05/18 21:55 Estimated GFR (MDRD) 41 (>89) L 02/05/18 21:55 Glucose 100 mg/dL (70-100) 02/05/18 21:55 Calcium 9.1 mg/dL (8.5-10.3) 02/05/18 21:55 Total Bilirubin 6.5 mg/dL (0.2-1.0) H 02/05/18 21:55 AST 34 IU/L (10-42) 02/05/18 21:55 ALT 22 IU/L (10-60) 02/05/18 21:55 Alkaline Phosphatase 197 IU/L (42-121) H 02/05/18 21:55 Troponin I 0.04 ng/mL (<0.49) 02/05/18 21:55 B-Natriuretic Peptide 6057.00 pg/mL (5-100) H 02/05/18 21:55 Total Protein 7.9 g/dL (6.7-8.2) 02/05/18 21:55 Albumin 4.0 g/dL (3.2-5.5) 02/05/18 21:55 Globulin 3.9 g/dL (2.1-4.2) 02/05/18 21:55 Albumin/Globulin Ratio 1.0 (1.0-2.2) 02/05/18 21:55 Lipase 25 U/L (22-51) 02/05/18 21:55 Urine Color YELLOW 02/05/18 22:46 Urine Clarity CLEAR (CLEAR) 02/05/18 22:46 Urine pH 5.5 PH (5.0-7.5) 02/05/18 22:46 Ur Specific [place] 1.010 (1.002-1.030) 02/05/18 22:46 Urine Protein 30 mg/dL (NEGATIVE) H 02/05/18 22:46 Urine Glucose (UA) NEGATIVE mg/dL (NEGATIVE) 02/05/18 22:46 Urine Ketones NEGATIVE mg/dL (NEGATIVE) 02/05/18 22:46 Urine Occult Blood SMALL (NEGATIVE) H 02/05/18 22:46 Urine Nitrite NEGATIVE (NEGATIVE) 02/05/18 22:46 Urine Bilirubin NEGATIVE (NEGATIVE) 02/05/18 22:46 Urine Urobilinogen >=8.0 E.U./dL (NORMAL) H 02/05/18 22:46 Ur Leukocyte Esterase NEGATIVE (NEGATIVE) 02/05/18 22:46 Urine RBC 6-10 /HPF (0-5) H 02/05/18 22:46 Urine WBC 0-3 /HPF (0-3) 02/05/18 22:46 Ur Squamous Epith Cells FEW Squamous (<= Few) 02/05/18 22:46 Urine Bacteria Rare /HPF (None Seen) 02/05/18 22:46 Ur Microscopic Review INDICATED 02/05/18 22:46 Urine Culture Comments NOT INDICATED 02/05/18 22:46 - Diagnostic Imaging Results Diagnostic Imaging Results: positive: Final report reviewed Diagnostic Imaging Results Comments: Chest x-ray Impression: Mild CHF pattern. No significant change from the prior. Core Measures - Anticipated LOS I expect patient to be DC'd or transferred within 96 hours.: Yes - DVT/VTE - Prophylaxis VTE/DVT Prophylaxis med ordered at admit?: Yes
[2018-02-05] MEDS ORDERED: NITROGLYCERIN SL 0.4 MG TABLET SL STA (23:54)
[2018-02-06] MEDS: SODIUM CHLORIDE FLUSH 0.9% 10 ML SYRINGE IVP SCH ×3 (01:35→16:27)
[2018-02-06] MEDS: CARVEDILOL 3.125 MG TABLET PO SCH ×3 (01:35→21:29)
--- NOTE | 2018-02-06 02:56 | Ultrasound Report ---
Reason: Elevated bilirubin and history of renal lesions Procedure Date: 02/06/2018 Accession Number: [id number] / [id number] Procedure: US - Abdomen Complete CPT Code: FULL RESULT: EXAM: ABDOMEN ULTRASOUND EXAM DATE: 02/06/2018 01:34 AM. CLINICAL HISTORY: Elevated bilirubin and history of renal lesions. COMPARISON: ABDOMEN COMPLETE 02/06/2016 7:55 AM ABDOMEN/PELVIS W/O 11/20/2017 6:07 PM. TECHNIQUE: Real-time scanning was performed with static images obtained. FINDINGS: Liver: Liver is enlarged and heterogeneous, measuring 18 cm. A 3.9 cm hemangioma is noted in the right lobe, and a 6.7 cm cyst is present. Main portal vein flow: Hepatopetal. Gallbladder: Normal. No stones, wall thickening, or sonographic Calhoun's sign. Biliary System: Common bile duct measures 6 mm. No intrahepatic or extrahepatic ductal dilatation. Pancreas: Obscured by bowel gas. Kidneys: Right: 9.4 cm longitudinally. Normal. No contour-deforming mass, stones, or hydronephrosis. Left: 9.8 cm longitudinally. A 3 cm cyst is present. Spleen: 8.6 cm. Normal in size and echotexture. Aorta and Inferior Vena Cava: Unremarkable. Other: Trace ascites. IMPRESSION: Incidental cysts and hepatic hemangioma. No evidence of cholelithiasis or biliary obstruction. [facility]
[2018-02-06] MEDS: GABAPENTIN 300 MG CAPSULE PO SCH ×3 (06:33→21:29)
[2018-02-06] MEDS: NITROGLYCERIN 2% PASTE TOP SCH ×2 (06:33→12:38)
[2018-02-06 07:03] LABS: BASOPHILS # (AUTO) 0.1 10^3/uL (0.0-0.1); BASOPHILS % (AUTO) 0.8 %; EOSINOPHILS # (AUTO) 0.1 10^3/uL (0.0-0.7); EOSINOPHILS % (AUTO) 1.1 %; HGB - HEMOGLOBIN 13.5 g/dL (14.0-18.0); LYMPHOCYTES % (AUTO) 12.3 %; MEAN CORPUSCULAR HEMOGLOBIN 27.6 pg (27.0-31.0); MEAN CORPUSCULAR HGB CONC 32.1 g/dL (32.0-36.0); MEAN CORPUSCULAR VOLUME 86.1 fL (80.0-94.0); MEAN PLATELET VOLUME 8.2 fL (7.4-11.4); MONOCYTES # (AUTO) 0.8 10^3/uL (0.0-1.0); MONOCYTES % (AUTO) 9.7 %; NEUTROPHILS # (AUTO) 6.2 10^3/uL (1.5-6.6); NEUTROPHILS % (AUTO) 76.1 %; PLT - PLATELET COUNT 223 10^3/uL (130-450); RED BLOOD COUNT 4.88 10^6/uL (4.70-6.10); RED CELL DISTRIBUTION WIDTH 21.2 % (12.0-15.0); WHITE BLOOD COUNT 8.2 x10^3/uL (4.8-10.8)
[2018-02-06 07:15] LABS: ALBUMIN 3.7 g/dL (3.2-5.5); ALBUMIN/GLOBULIN RATIO 1.1 (1.0-2.2); BILIRUBIN,TOTAL 5.8 mg/dL (0.2-1.0); CALCIUM 9.1 mg/dL (8.5-10.3); MAGNESIUM 2.2 mg/dL (1.7-2.8); TOTAL PROTEIN 7.2 g/dL (6.7-8.2)
[2018-02-06 07:18] LABS: INR 1.8 (0.8-1.2); PT - PROTHROMBIN TIME 19.7 secs (9.9-12.6)
[2018-02-06 07:21] LABS: HB2 TOTAL 14.2 g/dL; HEMOGLOBIN A1C 1.29 g/dL; HEMOGLOBIN A1C % 10.5 % (4.6-6.2)
[2018-02-06 08:01] LABS: DIFFERENTIAL COMMENT MANUAL=AUTO DIFF; PLATELET ESTIMATE, MANUAL NORMAL (130-450,000) (NORMAL); PLATELET MORPHOLOGY RARE GIANT PLATELETS (NORMAL)
[2018-02-06] MEDS: INSULIN ASPART 300 UNIT/3 ML PEN SUBQ SCH ×4 (08:22→21:29)
[2018-02-06] MEDS: POLYETHYLENE GLYCOL 3350 17 GM PACKET PO SCH (08:26)
[2018-02-06] MEDS: POTASSIUM CHLORIDE 20 MEQ TABLET PO SCH (08:26)
[2018-02-06] MEDS: FAMOTIDINE 20 MG TABLET PO SCH (08:26)
[2018-02-06] MEDS: ASPIRIN EC 81 MG TABLET PO SCH (08:26)
[2018-02-06] MEDS: SPIRONOLACTONE 25 MG TABLET PO SCH ×2 (08:26→21:29)
[2018-02-06] MEDS: ISOSORBIDE MONONITRATE ER 30 MG TABLET PO SCH (08:26)
[2018-02-06] MEDS: LOSARTAN 50 MG TABLET PO SCH (08:26)
[2018-02-06] MEDS: ENOXAPARIN 40 MG/0.4 ML SYRINGE SUBQ SCH (08:27)
[2018-02-06] MEDS: SODIUM CHLORIDE FLUSH 0.9% 10 ML SYRINGE IVP PRN (08:28)
[2018-02-06] MEDS ORDERED: CARBOXYMETHYLCELLULOSE OPHTH DROPS EACHEYE PRN (08:31)
[2018-02-06] MEDS ORDERED: BUMETANIDE 1 MG/4 ML VIAL IVP SCH (09:00)
--- NOTE | 2018-02-06 14:21 | ADVANCE CARE PLANNING NOTE ---
Advance Care Planning - Date/Time Date: 02/06/18 Time: 14:17 - Purpose of encounter Text: Establish his understanding of his disease with his and what he would like to have happen with regards to his treatment - Parties in attendance Parties in attendance: 2 very close friends of the family that they regard to spiritual daughters, , patient, and hospitalist - Decisional capacity Decisional capacity of: Patient is intact. He is alert. Slightly deaf. - Subjective/Patient's story Subjective/Patient's story: He was born in [place]. Went to school with his since elementary school. 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 She was about a year behind in. She was best friends with his little sister. Once he got out of high school, they started dating. 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 They moved to [facility] around 1981 when 1 of their daughters was stationed here in the [employer]. They have never left. His daughter is now a transportation maintenance worker and her is a transportation maintenance worker. They derive a great deal of comfort from not only their children being here but the sikhism in their muslim. They feel blessed and supported. He started developing A change in his health status summer around 2009. He had a cardiac arrest with a defibrillator put in place in 2010. An angioplasty was done for a blocked artery in 2010 with a stent put in place. Also had a previous history of diabetes and hypertension. He was found to have a lung mass with right lung collapse in 2013 and was diagnosed as amyloid cardiomyopathy. At that point in time he had grade 4 diastolic dysfunction with an ejection fraction of 35% on top of coronary artery disease. He thinks that most of his decreased endurance started happening somewhere around 2011- 2012. He went from being dyspneic on exertion if he walks for too far. To being dyspneic with short distances. He is been hospitalized several times for congestive heart failure and the last one was December 2017. Last summer he started using a scooter because he just could not walk very far. He lives in a manufactured home with his . It has been getting harder and harder to get out of the home. His reduced endurance has been severely limiti ng. His greatest jennifer is his gardening. He has only been able to do a few minutes at a time in September and October for his roses. In the last 3 or 4 months he has been telling his that he is so tired. He is depressed, feels like his life has shut down and there is nothing he can do because he is so diminished with exhaustion. He and his both state that the last 2 years of been good to them with regards to how much they love each other and how they have been able to have good conversations about important things. They have talked about what they do not want at the end of life. They know they do not want to spend a long dwindling time being a burden the family or each other. They have all of their home arrangements made. They are blessed with the love of their muslim, the sikhism from the muslim, their 3 children, 38 grandchildren, 12 great grandchildren and 4 great great grandchildren. Even though he barely held on after his last admission for congestive heart failure in December, and he has been compliant with medications, he continues to deteriorate with regards to endurance. Over the last week or 2 he cannot even get out of bed. He needs a lot of help to get up to go urinate. Just getting up to urinate completely exhausts him. He has fallen at least 6 times in the last month. He just does not have the strength to get up. He is now brought in for acute on chronic combined systolic and diastolic congestive heart failure. His last echocardiogram in December showed him to have an ejection fraction of approximately 20%. 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 fib arrest in 2009 currently with an AICD in place, amyloid cardiomyopathy, persistent atrial fibrillation, hypertension, type 2 diabetes mellitus, chronic kidney disease stage III, osteoarthritis, BPH and chronic hearing loss who presented to the emergency department with a chief complaint of shortness of breath. This very pleasant gentleman was most recently hospitalized here at [facility] in December 2017 for CHF exacerbation. Since that time the patient has had a gradual decline in his health and mobility due to his congestive heart failure. The patient now has marked limitation on physical activities to the point where he uses a scooter around the house and states that he cannot walk more than 5 feet without having to stop and catch his breath due to extreme shortness of breath and fatigue. The patient states that the symptoms have progressed over the last 2 months but more so over the last month. He states that recently he has began to notice that he has had increasing abdominal distention and bloating which is now led to him becoming very nauseated. He states that he has increasing shortness of breath now even at rest. He states that he is having increasing edema in his legs all the way up to his knees. He states that he is gained more than 10 pounds over the last month. He did see his primary care physician regarding these worsening symptoms and had his Lasix switched to Bumex but he states that he has not had very good response to the Bumex. He states that with his Lasix he was getting itching which has stopped now that he is on the Bumex however he is having decreased urine output recently. He states that he is having trouble sleeping at night because he so short of breath and cannot lie flat. He states he almost has to sit straight up in order to sleep. He denies any chest pain or palpitations. He denies any abdominal pain. He does state that he has had decreased appetite recently and states that some days food just does not taste good. Patient denies any headaches, blurred vision, runny nose, sore throat, nasal congestion, difficulty swallowing, diarrhea, constipation, urinary urgency, urinary frequency, dysuria, joint pain, joint swelling, back pain, neck stiffness, skin rash, skin changes, hair loss, recent unintentional weight loss, polyuria, polydipsia, fevers, chills, cough, night sweats or any focal neurologic deficits. On presentation to the emergency department the patient is afebrile and heart rate is controlled. The patient is however hypertensive with a blood pressure of 157/110 and slightly tachypneic but does not appear to be in any respiratory distress. The patient is oxygenating well on room air. On examination the patient has severe lower extremity swelling, appears jaundiced and has abdominal distention and abdominal wall swelling. The patient underwent routine lab work which revealed a BNP of 6057 which is elevated from his baseline of around 2000. The patient also had an elevated creatinine of 1.9 which is mildly elevated from his baseline. The patient's bilirubin was found to be elevated at 6.5 which is the highest that it has ever been. The patient's chest x-ray did reveal CHF. Given the patient's ongoing symptoms and his poor response to oral diuretics the patient is being admitted for congestive heart failure exacerbation and will likely need several days of hospitalization with IV diuretic treatment. In the emergency department the patient did receive a dose of IV Bumex and Nitropaste. History - Past Medical History Cardiovascular: reports: Congestive heart failure, Hypertension, Coronary artery disease, Deep vein thrombosis, [place], Atrial fibrillation, Other (Amyloid Cardiomyopathy ) Respiratory: reports: COPD, Shortness of breath Endocrine/Autoimmune: reports: Type 2 diabetes GI: reports: None : reports: Benign prostate hypertrophy, Renal insuffiency HEENT: reports: Chronic hearing loss Psych: reports: None Musculoskeletal: reports: Osteoarthritis Derm: reports: None MRSA Hx?: No - Past Surgical History Ortho: reports: Knee replacement Cardiovascular: reports: Pacemaker, AICD - Goals of Care Goals of care determinations: He is starting to think about not coming to the hospital anymore. He is also starting to think about not getting any more treatment. But he has not come to that final decision yet.All he knows is that all the things that he likes to do to make himself happy, he can no longer do anymore.The only jennifer in his life now is the love of his family, children, grandchildren and seeing their faces. He knows he wants to be home. He never wants to go to a correction. He wants only his to take care of him. He does not want to suffer with pain, shortness of breath, and he does not want to be a burden to his family or his - Plan Plan: We discussed the fact that he really does not want to be put on life support to receive life-saving measure years with regards to resuscitation. As such a POLST form was filled out and he is change status from attempt resuscitation to DO NOT RESUSCITATE. He reluctantly will start to consider possibly letting somebody else in the house. 1 of his friends who is with him, works in financial services education consultant for the [employer] [facility], and they are applying for a [facility] provider. That will help his physically take care of him since he is now for the most part bedbound. Consider Diego catheter since it is a tremendous exertion to get up for urination. As his thought process changes, he and his may consider hospice. Right now they are not sure. Continue current medications with goal of enough diuresis to alleviate some of his orthopnea and resting sob. plan is to return to his home after discharge. - Code Status Code Status: Do Not Attempt Resuscitation - Time Spent on Advance Care Planning Time spent on advance care plannin minutes
--- NOTE | 2018-02-06 16:24 | PROVIDER PROGRESS NOTE ---
Subjective - Prog Note Date Prog Note Date: 02/06/18 Prog Note Time: 16:22 - Subjective Pt reports feeling: No change Subjective: He reports being just so tired. Getting up to go to the bathroom is almost impossible for him. Using a bedside urinal is also causing him to be short of breath. Last night he was -109 mL. By the time of this note he is down 1295 mL. To close family friends are in the room with his and he. Advanced care planning discussion held. Please see separate dictated note. He is short of breath at rest. Just speaking to me wipes him out. He denies abdominal pain, dysuria. Cough is nonproductive. Current Medications - Current Medications Current Medications: Active Medications Acetaminophen (Tylenol) 650 mg PO Q4HR PRN PRN Reason: Pain 1 to 4 Aspirin (Ecotrin) 81 mg PO DAILY [facility] Last Admin: 02/06/18 08:26 Dose: 81 mg Bumetanide (Bumex Inj) 1 mg IVP BIDDIURETIC [facility] Carboxymethylcellulose (Refresh 1% Ophth Drops) 1 drops EACHEYE PRN PRN PRN Reason: Dry Eye Last Admin: 02/06/18 10:28 Dose: 1 drops Carvedilol (Coreg) 6.25 mg PO BID [facility] Last Admin: 02/06/18 08:26 Dose: 6.25 mg Enoxaparin Sodium (Lovenox) 40 mg SUBQ DAILY [facility] Last Admin: 02/06/18 08:27 Dose: 40 mg Famotidine (Pepcid) 20 mg PO DAILY [facility] Last Admin: 02/06/18 08:26 Dose: 20 mg Gabapentin (Neurontin) 300 mg PO TID [facility] Last Admin: 02/06/18 14:39 Dose: 300 mg Insulin Aspart (Novolog) 1 - 5 unit SUBQ 0800,1200,1700,2100 [facility]; Protocol Last Admin: 02/06/18 12:38 Dose: 3 unit Isosorbide Mononitrate (Imdur) 30 mg PO DAILY [facility] Last Admin: 02/06/18 08:26 Dose: 30 mg Losartan Potassium (Cozaar) 100 mg PO DAILY [facility] Last Admin: 02/06/18 08:26 Dose: 100 mg Methylphenidate HCl (Ritalin) 20 mg PO 0800,1400 [facility] Nitroglycerin (Nitro-Bid (Pkt)) 1 inch TOP 0600,1200 [facility] Last Admin: 02/06/18 12:38 Dose: 1 inch Ondansetron HCl (Zofran Inj) 4 mg IVP Q6HR PRN PRN Reason: Nausea / Vomiting Oxycodone HCl (Roxicodone) 5 mg PO Q4HR PRN PRN Reason: Pain 5 to 7 Polyethylene Glycol (Miralax) 17 gm PO DAILY [facility] Last Admin: 02/06/18 08:26 Dose: 17 gm Potassium Chloride (K-Dur) 40 meq PO DAILYWM [facility] Last Admin: 02/06/18 08:26 Dose: 40 meq Prochlorperazine Edisylate (Compazine Inj) 10 mg IVP Q6HR PRN PRN Reason: Nausea / Vomiting Promethazine HCl (Phenergan Inj) 25 mg IM Q6HR PRN PRN Reason: Nausea / Vomiting Sodium Chloride (Normal Saline Flush 0.9%) 10 ml IVP PRN PRN PRN Reason: NEEDED PER PROVIDER ORDERS Last Admin: 02/06/18 08:28 Dose: 10 ml Sodium Chloride (Normal Saline Flush 0.9%) 10 ml IVP 0100,0900,1700 [facility] Last Admin: 02/06/18 08:27 Dose: 10 ml Spironolactone (Aldactone) 25 mg PO BID [facility] Last Admin: 02/06/18 08:26 Dose: 25 mg Gabapentin 300 mg PO TID 12/09/17 Glipizide 5 mg PO DAILYWM 12/09/17 Methylphenidate HCl 20 mg PO 0800,1400 12/09/17 Bumetanide 2 mg PO DAILY 02/06/18 Carvedilol 6.25 mg PO BID 02/06/18 Metformin HCl 500 tab PO BIDWM 02/06/18 Spironolactone [Aldactone] 25 mg PO DAILY 02/06/18 Objective - Vital Signs/Intake & Output Reviewed Vital Signs: Yes Vital Signs: Vital Signs x48h Temp Pulse Resp BP Pulse Ox 02/06/18 13:52 36.4 C L 62 16 144/85 H 96 Intake & Output: Intake & Output 02/03/18 02/04/18 02/05/18 02/06/18 23:59 23:59 23:59 23:59 Intake Total 16 1180 Output Total 125 2475 Balance -109 -1295 - Objective General Appearance: positive: No acute distress (At rest. But when he starts to speak his respiratory rate goes up, he starts having to pause in between sentences.), Alert, Other (Absolutely sheryl tall elderly black male who looks his stated age, accompanied by and 2 close family friends) Eyes Bilateral: positive: PERRL ENT: positive: Pharynx nml Neck: positive: Other (JVD is present. He is laying at approximately 30-35 degrees.). negative: Stiff neck, Carotid bruit Respiratory: positive: Chest non-tender, Rales. negative: Wheezes, Rhonchi Cardiovascular: positive: Regular rate & rhythm, Systolic murmur, Diastolic murmur. negative: Gallop/S4, Friction rub Abdomen: positive: Non-tender, No organomegaly, Nml bowel sounds, No distention Skin: positive: Warm, Dry, Other (The skin of his blue and calf area is shiny, tight from edema. All scaling areas noted. 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 You have to make sure you look at him straight in the face and speak slowly and clearly.), Motor nml, Weakness (But very, very slow moving. Just sitting up requires quite a bit of cardiac effort on his part and it is very taxing.). negative: Facial droop, Slurred/abnml speech - Lab Results Fish Bones: 02/06/18 06:53 02/06/18 06:53 Other Labs: Lab Results x24hrs 02/06/18 02/06/18 02/06/18 Range/Units 10:50 07:24 06:53 WBC (4.8-10.8) x10^3/uL RBC (4.70-6.10) 10^6/uL Hgb (14.0-18.0) g/dL Hct (42.0-52.0) % MCV (80.0-94.0) fL MCH (27.0-31.0) pg MCHC (32.0-36.0) g/dL RDW (12.0-15.0) % Plt Count (130-450) 10^3/uL MPV (7.4-11.4) fL Neut # (Auto) (1.5-6.6) 10^3/uL Lymph # (Auto) (1.5-3.5) 10^3/uL [place] # (Auto) (0.0-1.0) 10^3/uL Eos # (Auto) (0.0-0.7) 10^3/uL Baso # (Auto) (0.0-0.1) 10^3/uL Absolute Nucleated RBC x10^3/uL Band Neuts % (Manual) Abnorm Lymph % (Manual) Nucleated RBC % /100WBC Neutrophils # (Manual) Lymphocytes # (Manual) Monocytes # (Manual) Eosinophils # (Manual) Basophils # (Manual) Differential Comment Manual Slide Review WBC Morphology (NORMAL) Platelet Estimate (NORMAL) Platelet Morphology (NORMAL) RBC Morph Micro Appear (NORMAL) PT (9.9-12.6) secs INR (0.8-1.2) Sodium (135-145) mmol/L Potassium (3.5-5.0) mmol/L Chloride (101-111) mmol/L Carbon Dioxide (21-32) mmol/L Anion Gap (6-13) BUN (6-20) mg/dL Creatinine (0.6-1.2) mg/dL Estimated GFR (MDRD) (>89) Glucose (70-100) mg/dL POC Whole Bld Glucose 142 H (70 - 100) mg/dL Glycated Hemoglobin (4.6-6.2) % Estim Average Glucose (70-100) Calcium (8.5-10.3) mg/dL Magnesium (1.7-2.8) mg/dL Total Bilirubin (0.2-1.0) mg/dL AST (10-42) IU/L ALT (10-60) IU/L Alkaline Phosphatase (42-121) IU/L Troponin I < 0.04 (<0.49) ng/mL B-Natriuretic Peptide 6238.00 H (5-100) pg/mL Total Protein (6.7-8.2) g/dL Albumin (3.2-5.5) g/dL Globulin (2.1-4.2) g/dL Albumin/Globulin Ratio (1.0-2.2) Lipase (22-51) U/L Urine Color Urine Clarity (CLEAR) Urine pH (5.0-7.5) PH Ur Specific [place] (1.002-1.030) Urine Protein (NEGATIVE) mg/dL Urine Glucose (UA) (NEGATIVE) mg/dL Urine Ketones (NEGATIVE) mg/dL Urine Occult Blood (NEGATIVE) Urine Nitrite (NEGATIVE) Urine Bilirubin (NEGATIVE) Urine Urobilinogen (NORMAL) E.U./dL Ur Leukocyte Esterase (NEGATIVE) Urine RBC (0-5) /HPF Urine WBC (0-3) /HPF Ur Squamous Epith Cells (<= Few) Urine Bacteria (None Seen) /HPF Ur Microscopic Review Urine Culture Comments 02/06/18 02/06/18 02/06/18 Range/Units 06:53 06:53 06:53 WBC (4.8-10.8) x10^3/uL RBC (4.70-6.10) 10^6/uL Hgb (14.0-18.0) g/dL Hct (42.0-52.0) % MCV (80.0-94.0) fL MCH (27.0-31.0) pg MCHC (32.0-36.0) g/dL RDW (12.0-15.0) % Plt Count (130-450) 10^3/uL MPV (7.4-11.4) fL Neut # (Auto) (1.5-6.6) 10^3/uL Lymph # (Auto) (1.5-3.5) 10^3/uL [place] # (Auto) (0.0-1.0) 10^3/uL Eos # (Auto) (0.0-0.7) 10^3/uL Baso # (Auto) (0.0-0.1) 10^3/uL Absolute Nucleated RBC x10^3/uL Band Neuts % (Manual) Abnorm Lymph % (Manual) Nucleated RBC % /100WBC Neutrophils # (Manual) Lymphocytes # (Manual) Monocytes # (Manual) Eosinophils # (Manual) Basophils # (Manual) Differential Comment Manual Slide Review WBC Morphology (NORMAL) Platelet Estimate (NORMAL) Platelet Morphology (NORMAL) RBC Morph Micro Appear (NORMAL) PT (9.9-12.6) secs INR (0.8-1.2) Sodium 136 (135-145) mmol/L Potassium 3.9 (3.5-5.0) mmol/L Chloride 95 L (101-111) mmol/L Carbon Dioxide 29 (21-32) mmol/L Anion Gap 12.0 (6-13) BUN 42 H (6-20) mg/dL Creatinine 2.0 H (0.6-1.2) mg/dL Estimated GFR (MDRD) 38 L (>89) Glucose 145 H (70-100) mg/dL POC Whole Bld Glucose (70 - 100) mg/dL Glycated Hemoglobin 10.5 H (4.6-6.2) % Estim Average Glucose 255 H (70-100) Calcium 9.1 (8.5-10.3) mg/dL Magnesium 2.2 (1.7-2.8) mg/dL Total Bilirubin 5.8 H (0.2-1.0) mg/dL AST 34 (10-42) IU/L ALT 22 (10-60) IU/L Alkaline Phosphatase 178 H (42-121) IU/L Troponin I 0.04 (<0.49) ng/mL B-Natriuretic Peptide (5-100) pg/mL Total Protein 7.2 (6.7-8.2) g/dL Albumin 3.7 (3.2-5.5) g/dL Globulin 3.5 (2.1-4.2) g/dL Albumin/Globulin Ratio 1.1 (1.0-2.2) Lipase (22-51) U/L Urine Color Urine Clarity (CLEAR) Urine pH (5.0-7.5) PH Ur Specific [place] (1.002-1.030) Urine Protein (NEGATIVE) mg/dL Urine Glucose (UA) (NEGATIVE) mg/dL Urine Ketones (NEGATIVE) mg/dL Urine Occult Blood (NEGATIVE) Urine Nitrite (NEGATIVE) Urine Bilirubin (NEGATIVE) Urine Urobilinogen (NORMAL) E.U./dL Ur Leukocyte Esterase (NEGATIVE) Urine RBC (0-5) /HPF Urine WBC (0-3) /HPF Ur Squamous Epith Cells (<= Few) Urine Bacteria (None Seen) /HPF Ur Microscopic Review Urine Culture Comments 02/06/18 02/06/18 02/06/18 Range/Units 06:53 06:53 02:24 WBC 8.2 (4.8-10.8) x10^3/uL RBC 4.88 (4.70-6.10) 10^6/uL Hgb 13.5 L (14.0-18.0) g/dL Hct 42.1 (42.0-52.0) % MCV 86.1 (80.0-94.0) fL MCH 27.6 (27.0-31.0) pg MCHC 32.1 (32.0-36.0) g/dL RDW 21.2 H (12.0-15.0) % Plt Count 223 (130-450) 10^3/uL MPV 8.2 (7.4-11.4) fL Neut # (Auto) 6.2 (1.5-6.6) 10^3/uL Lymph # (Auto) 1.0 L (1.5-3.5) 10^3/uL [place] # (Auto) 0.8 (0.0-1.0) 10^3/uL Eos # (Auto) 0.1 (0.0-0.7) 10^3/uL Baso # (Auto) 0.1 (0.0-0.1) 10^3/uL Absolute Nucleated RBC 0.00 x10^3/uL Band Neuts % (Manual) Not Reportable Abnorm Lymph % (Manual) Not Reportable Nucleated RBC % 0.0 /100WBC Neutrophils # (Manual) Not Reportable Lymphocytes # (Manual) Not Reportable Monocytes # (Manual) Not Reportable Eosinophils # (Manual) Not Reportable Basophils # (Manual) Not Reportable Differential Comment MANUAL=AUTO DIFF Manual Slide Review WBC Morphology (NORMAL) Platelet Estimate NORMAL (130-450,000) (NORMAL) Platelet Morphology RARE GIANT PLATELETS (NORMAL) RBC Morph Micro Appear 2+ POLYCHROMASIA (NORMAL) PT 19.7 H (9.9-12.6) secs INR 1.8 H (0.8-1.2) Sodium (135-145) mmol/L Potassium (3.5-5.0) mmol/L Chloride (101-111) mmol/L Carbon Dioxide (21-32) mmol/L Anion Gap (6-13) BUN (6-20) mg/dL Creatinine (0.6-1.2) mg/dL Estimated GFR (MDRD) (>89) Glucose (70-100) mg/dL POC Whole Bld Glucose 81 (70 - 100) mg/dL Glycated Hemoglobin (4.6-6.2) % Estim Average Glucose (70-100) Calcium (8.5-10.3) mg/dL Magnesium (1.7-2.8) mg/dL Total Bilirubin (0.2-1.0) mg/dL AST (10-42) IU/L ALT (10-60) IU/L Alkaline Phosphatase (42-121) IU/L Troponin I (<0.49) ng/mL B-Natriuretic Peptide (5-100) pg/mL Total Protein (6.7-8.2) g/dL Albumin (3.2-5.5) g/dL Globulin (2.1-4.2) g/dL Albumin/Globulin Ratio (1.0-2.2) Lipase (22-51) U/L Urine Color Urine Clarity (CLEAR) Urine pH (5.0-7.5) PH Ur Specific [place] (1.002-1.030) Urine Protein (NEGATIVE) mg/dL Urine Glucose (UA) (NEGATIVE) mg/dL Urine Ketones (NEGATIVE) mg/dL Urine Occult Blood (NEGATIVE) Urine Nitrite (NEGATIVE) Urine Bilirubin (NEGATIVE) Urine Urobilinogen (NORMAL) E.U./dL Ur Leukocyte Esterase (NEGATIVE) Urine RBC (0-5) /HPF Urine WBC (0-3) /HPF Ur Squamous Epith Cells (<= Few) Urine Bacteria (None Seen) /HPF Ur Microscopic Review Urine Culture Comments 02/05/18 02/05/18 02/05/18 Range/Units 22:46 21:55 21:55 WBC (4.8-10.8) x10^3/uL RBC (4.70-6.10) 10^6/uL Hgb (14.0-18.0) g/dL Hct (42.0-52.0) % MCV (80.0-94.0) fL MCH (27.0-31.0) pg MCHC (32.0-36.0) g/dL RDW (12.0-15.0) % Plt Count (130-450) 10^3/uL MPV (7.4-11.4) fL Neut # (Auto) (1.5-6.6) 10^3/uL Lymph # (Auto) (1.5-3.5) 10^3/uL [place] # (Auto) (0.0-1.0) 10^3/uL Eos # (Auto) (0.0-0.7) 10^3/uL Baso # (Auto) (0.0-0.1) 10^3/uL Absolute Nucleated RBC x10^3/uL Band Neuts % (Manual) Abnorm Lymph % (Manual) Nucleated RBC % /100WBC Neutrophils # (Manual) Lymphocytes # (Manual) Monocytes # (Manual) Eosinophils # (Manual) Basophils # (Manual) Differential Comment Manual Slide Review WBC Morphology (NORMAL) Platelet Estimate (NORMAL) Platelet Morphology (NORMAL) RBC Morph Micro Appear (NORMAL) PT (9.9-12.6) secs INR (0.8-1.2) Sodium (135-145) mmol/L Potassium (3.5-5.0) mmol/L Chloride (101-111) mmol/L Carbon Dioxide (21-32) mmol/L Anion Gap (6-13) BUN (6-20) mg/dL Creatinine (0.6-1.2) mg/dL Estimated GFR (MDRD) (>89) Glucose (70-100) mg/dL POC Whole Bld Glucose (70 - 100) mg/dL Glycated Hemoglobin (4.6-6.2) % Estim Average Glucose (70-100) Calcium (8.5-10.3) mg/dL Magnesium (1.7-2.8) mg/dL Total Bilirubin (0.2-1.0) mg/dL AST (10-42) IU/L ALT (10-60) IU/L Alkaline Phosphatase (42-121) IU/L Troponin I 0.04 (<0.49) ng/mL B-Natriuretic Peptide 6057.00 H (5-100) pg/mL Total Protein (6.7-8.2) g/dL Albumin (3.2-5.5) g/dL Globulin (2.1-4.2) g/dL Albumin/Globulin Ratio (1.0-2.2) Lipase (22-51) U/L Urine Color YELLOW Urine Clarity CLEAR (CLEAR) Urine pH 5.5 (5.0-7.5) PH Ur Specific [place] 1.010 (1.002-1.030) Urine Protein 30 H (NEGATIVE) mg/dL Urine Glucose (UA) NEGATIVE (NEGATIVE) mg/dL Urine Ketones NEGATIVE (NEGATIVE) mg/dL Urine Occult Blood SMALL H (NEGATIVE) Urine Nitrite NEGATIVE (NEGATIVE) Urine Bilirubin NEGATIVE (NEGATIVE) Urine Urobilinogen >=8.0 H (NORMAL) E.U./dL Ur Leukocyte Esterase NEGATIVE (NEGATIVE) Urine RBC 6-10 H (0-5) /HPF Urine WBC 0-3 (0-3) /HPF Ur Squamous Epith Cells FEW Squamous (<= Few) Urine Bacteria Rare (None Seen) /HPF Ur Microscopic Review INDICATED Urine Culture Comments NOT INDICATED 02/05/18 02/05/18 Range/Units 21:55 21:55 WBC 9.2 (4.8-10.8) x10^3/uL RBC 5.01 (4.70-6.10) 10^6/uL Hgb 13.7 L (14.0-18.0) g/dL Hct 43.3 (42.0-52.0) % MCV 86.5 (80.0-94.0) fL MCH 27.4 (27.0-31.0) pg MCHC 31.7 L (32.0-36.0) g/dL RDW 21.6 H (12.0-15.0) % Plt Count 235 (130-450) 10^3/uL MPV 8.3 (7.4-11.4) fL Neut # (Auto) 6.8 H (1.5-6.6) 10^3/uL Lymph # (Auto) 1.5 (1.5-3.5) 10^3/uL [place] # (Auto) 0.8 (0.0-1.0) 10^3/uL Eos # (Auto) 0.0 (0.0-0.7) 10^3/uL Baso # (Auto) 0.1 (0.0-0.1) 10^3/uL Absolute Nucleated RBC 0.00 x10^3/uL Band Neuts % (Manual) Abnorm Lymph % (Manual) Nucleated RBC % 0.1 /100WBC Neutrophils # (Manual) Lymphocytes # (Manual) Monocytes # (Manual) Eosinophils # (Manual) Basophils # (Manual) Differential Comment Manual Slide Review Indicated WBC Morphology NORMAL APPEARANCE (NORMAL) Platelet Estimate NORMAL (130-450,000) (NORMAL) Platelet Morphology NORMAL APPEARANCE (NORMAL) RBC Morph Micro Appear 1+ POLYCHROMASIA (NORMAL) PT (9.9-12.6) secs INR (0.8-1.2) Sodium 133 L (135-145) mmol/L Potassium 4.1 (3.5-5.0) mmol/L Chloride 94 L (101-111) mmol/L Carbon Dioxide 26 (21-32) mmol/L Anion Gap 13.0 (6-13) BUN 38 H (6-20) mg/dL Creatinine 1.9 H (0.6-1.2) mg/dL Estimated GFR (MDRD) 41 L (>89) Glucose 100 (70-100) mg/dL POC Whole Bld Glucose (70 - 100) mg/dL Glycated Hemoglobin (4.6-6.2) % Estim Average Glucose (70-100) Calcium 9.1 (8.5-10.3) mg/dL Magnesium (1.7-2.8) mg/dL Total Bilirubin 6.5 H (0.2-1.0) mg/dL AST 34 (10-42) IU/L ALT 22 (10-60) IU/L Alkaline Phosphatase 197 H (42-121) IU/L Troponin I (<0.49) ng/mL B-Natriuretic Peptide (5-100) pg/mL Total Protein 7.9 (6.7-8.2) g/dL Albumin 4.0 (3.2-5.5) g/dL Globulin 3.9 (2.1-4.2) g/dL Albumin/Globulin Ratio 1.0 (1.0-2.2) Lipase 25 (22-51) U/L Urine Color Urine Clarity (CLEAR) Urine pH (5.0-7.5) PH Ur Specific [place] (1.002-1.030) Urine Protein (NEGATIVE) mg/dL Urine Glucose (UA) (NEGATIVE) mg/dL Urine Ketones (NEGATIVE) mg/dL Urine Occult Blood (NEGATIVE) Urine Nitrite (NEGATIVE) Urine Bilirubin (NEGATIVE) Urine Urobilinogen (NORMAL) E.U./dL Ur Leukocyte Esterase (NEGATIVE) Urine RBC (0-5) /HPF Urine WBC (0-3) /HPF Ur Squamous Epith Cells (<= Few) Urine Bacteria (None Seen) /HPF Ur Microscopic Review Urine Culture Comments ABX Reporting Has patient been on IV antibiotics over the past 48 hours?: No Assessment/Plan - Problem List (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 On the patient's most recent echocardiogram from December of this year the patient's ejection fraction was 20-25%, he had a moderate right ventricular enlargement, he had moderately impaired right ventricular systolic function, moderate mitral regurgitation, severely abnormal right heart pressures and a right ventricular systolic pressure of 77. The patient has both right and left-sided heart failure which is why he has severe shortness of breath along with hepatic congestion and severe edema of his abdominal wall as well as his bilateral lower extremities. At this point the patient is NYHA class III and nearly class IV with severe symptoms with just mild activity. The patient is limited to a scooter to get around the home. He can barely walk 5 feet without having to stop because of shortness of breath and fatigue. This is all progressed over the last month and is likely secondary to a CHF exacerbation in spite of being compliant with meds. I have described at length his anatomy and what it means to have bilateral ventricular failure and how his pump is failing in spite of max medical therapy. Plan: Continue IV Bumex 1 mg twice daily but his creatinine is rising. It's the highest it's been. Give patient one-time dose of Zaroxolyn Strict I's and O's Daily weights 2 L fluid restriction 2 g sodium restriction Continue patient's Coreg We will place the patient back on Imdur, Cozaar and spironolactone given his hypertension Placed on Nitropaste Monitored BNP which was 6057>6238 today. Not better. I spoke with the patient and his about his goals of care and asked him to consider a palliative care consult. He will think about that and about Hospice. On admit, in the presence of the patient's son, the patient agreed with his son to be a full code but stated that he needs to think it over and talk with his . Today, he and his don't want Full code and want DNR. POLST form filled out. Poor prognosis overall. No need for an echocardiogram given the patient just had an echo 2 months ago. Patient will likely need 2-3 days of diuresis by IV diuretic (2) Hypertension Conclusion/Plan: Patient has a history of hypertension and on presentation to the emergency department the patient was severely hypertensive with blood pressure of 157/110. The patient was given Nitropaste in the emergency department with minimal response. The patient was placed on his home medication of carvedilol, Imdur and spironolactone. He will continue on Nitropaste and we will place him on Bumex 1 mg IV twice daily. The patient's hypertension is likely worsening his pulmonary edema and CHF. It is pertinent that we get it under control. today systolic 137-149. Qualifiers: Hypertension type: essential hypertension Qualified Code(s): I10 - Essential (primary) hypertension (3) Acute renal failure superimposed on stage 3 chronic kidney disease Conclusion/Plan: Patient has a history of chronic kidney disease stage III. On presentation the patient's creatinine is elevated up to 1.9. The patient appears to have acute on chronic renal failure. This appears to be secondary to cardiorenal syndrome as patient is congested and is having poor flow to his kidneys as is evident by the elevated BUN. I explained this to he and his . The patient will be treated with IV Lasix and we will continue to monitor his creatinine. We will avoid any nephrotoxic agents. Qualifiers: Acute renal failure type: unspecified Qualified Code(s): N17.9 - Acute kidney failure, unspecified; N18.3 - Chronic kidney disease, stage 3 (moderate) (4) Elevated bilirubin Conclusion/Plan: Patient has had chronically elevated bilirubin ranging from 2-5 today his bilirubin is elevated to 6.5 which is the highest that it has ever been. The patient's bilirubin is likely elevated secondary to liver congestion from his severe congestive heart failure with cor pulmonale. The patient has had a recent CT of his abdomen and pelvis which did show ascites but also there was c oncern for some lesions on his kidney. Given the patient's elevated bilirubin and history of renal lesions we obtained an abdominal ultrasound . In looking at his kidneys, the right one does not have a mass. The left one has a 3 cm cyst. There is trace ascites. He has hepatic hemangiomas. No evidence of cholelithiasis or biliary obstruction. Patient will be treated with IV Bumex and other treatment for CHF and we will continue to monitor his bilirubin. I believe that with the treatment of his CHF his bilirubin will improve. (5) Hyponatremia Conclusion/Plan: The patient does have mild hyponatremia with a sodium of 133. The patient appears to have hypovolemic hyponatremia. Patient will be treated with IV Bumex and we will continue to monitor the patient's sodium. 02/05 he is 136. (6) Diabetes Conclusion/Plan: The patient has a history of type 2 diabetes and does not insulin-dependent. The patient uses metformin and glipizide at home. On presentation the patient's blood glucose is well controlled. 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 Glucose today has been [phone]. 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 The patient uses gabapentin at home for his peripheral neuropathy. The patient's gabapentin will be continued while he is hospitalized.The tells us that this is 1 of the main reasons he is more and more immobile. It just is not safe anymore because he cannot feel his feet on the ground and he trips. Combined this with the shortness of breath and the peripheral neuropathy she thinks that is what he has been falling so much. Qualifiers: Peripheral neuropathy type: polyneuropathy associated with underlying disease Qualified Code(s): G63 - Polyneuropathy in diseases classified elsewhere
[2018-02-06] MEDS: BUMETANIDE 1 MG/4 ML VIAL IVP SCH (16:28)
[2018-02-06] MEDS: METHYLPHENIDATE 10 MG TABLET PO SCH (16:28)
[2018-02-07] MEDS: SODIUM CHLORIDE FLUSH 0.9% 10 ML SYRINGE IVP SCH ×4 (00:06→23:36)
[2018-02-07 05:39] LABS: BASOPHILS # (AUTO) 0.1 10^3/uL (0.0-0.1); BASOPHILS % (AUTO) 1.1 %; EOSINOPHILS # (AUTO) 0.1 10^3/uL (0.0-0.7); EOSINOPHILS % (AUTO) 1.9 %; HGB - HEMOGLOBIN 12.4 g/dL (14.0-18.0); LYMPHOCYTES # (AUTO) 0.8 10^3/uL (1.5-3.5); MEAN CORPUSCULAR HEMOGLOBIN 27.4 pg (27.0-31.0); MEAN CORPUSCULAR HGB CONC 31.6 g/dL (32.0-36.0); MEAN CORPUSCULAR VOLUME 86.7 fL (80.0-94.0); MEAN PLATELET VOLUME 8.5 fL (7.4-11.4); MONOCYTES # (AUTO) 0.6 10^3/uL (0.0-1.0); MONOCYTES % (AUTO) 8.8 %; NEUTROPHILS # (AUTO) 5.3 10^3/uL (1.5-6.6); NEUTROPHILS % (AUTO) 76.2 %; PLT - PLATELET COUNT 196 10^3/uL (130-450); RED BLOOD COUNT 4.51 10^6/uL (4.70-6.10); RED CELL DISTRIBUTION WIDTH 21.8 % (12.0-15.0)
[2018-02-07 05:47] LABS: ALBUMIN 3.3 g/dL (3.2-5.5); CALCIUM 8.9 mg/dL (8.5-10.3); CREATININE 2.1 mg/dL (0.6-1.2); TOTAL PROTEIN 6.5 g/dL (6.7-8.2)
[2018-02-07 06:18] LABS: PLATELET ESTIMATE, MANUAL NORMAL (130-450,000) (NORMAL)
[2018-02-07] MEDS: NITROGLYCERIN 2% PASTE TOP SCH ×2 (06:49→11:54)
[2018-02-07] MEDS: BUMETANIDE 1 MG/4 ML VIAL IVP SCH ×2 (06:49→14:31)
[2018-02-07] MEDS: GABAPENTIN 300 MG CAPSULE PO SCH ×3 (06:50→21:06)
[2018-02-07] MEDS: METHYLPHENIDATE 10 MG TABLET PO SCH ×2 (07:57→14:31)
[2018-02-07] MEDS: POTASSIUM CHLORIDE 20 MEQ TABLET PO SCH (07:57)
[2018-02-07] MEDS: INSULIN ASPART 300 UNIT/3 ML PEN SUBQ SCH ×4 (07:59→21:06)
[2018-02-07] MEDS: INSULIN GLARGINE 300 UNIT/3 ML PEN SUBQ SCH (08:03)
[2018-02-07] MEDS: ISOSORBIDE MONONITRATE ER 30 MG TABLET PO SCH (08:58)
[2018-02-07] MEDS: LOSARTAN 50 MG TABLET PO SCH (08:58)
[2018-02-07] MEDS: ASPIRIN EC 81 MG TABLET PO SCH (08:58)
[2018-02-07] MEDS: FAMOTIDINE 20 MG TABLET PO SCH (08:58)
[2018-02-07] MEDS: POLYETHYLENE GLYCOL 3350 17 GM PACKET PO SCH (08:58)
[2018-02-07] MEDS: CARVEDILOL 3.125 MG TABLET PO SCH ×2 (08:58→21:06)
[2018-02-07] MEDS: SPIRONOLACTONE 25 MG TABLET PO SCH ×2 (08:58→21:06)
[2018-02-07] MEDS: ENOXAPARIN 40 MG/0.4 ML SYRINGE SUBQ SCH (08:58)
--- NOTE | 2018-02-07 11:22 | PROVIDER PROGRESS NOTE ---
Subjective - Prog Note Date Prog Note Date: 02/07/18 Prog Note Time: 11:20 - Subjective Pt reports feeling: Improved Subjective: He tells me that he is a new man. He wanted to go over our conversation yesterday from his advanced care planning session. He does not want to change anything. He still wants to be DO NOT RESUSCITATE. But he wants me to know that he feels so much better from yesterday today. He does not feel nearly as depressed or hopeless as he did. I have been able to get 3704 cc negative output on him. And he has dropped his weight from 80.7 kg to 78 kg. Much of his depression and hopelessness derived from the fact that he could not sleep at night. Orthopnea was so severe. He would seem to cope okay during the day but once he started getting ready for bed horrible feeling of dread and fear would o kye take him. The shortness of breath was so bad that he was wondering if this next breath was going to be his last breath. The night would seem to last forever. Last night was the first night he had a good night sleep and so long he cannot remember. He feels grateful and happy that he feels so good today. He is also worried about his . He watches her go to work, come home and then work even more to take care of him in the house. He says that he was getting so despondent he wanted to go live in a home and then there because he did not want his to have to take care of him anymore. I have explained to him that if we can get help in the house, he and his will overall do so much better. Current Medications - Current Medications Current Medications: Active Medications Acetaminophen (Tylenol) 650 mg PO Q4HR PRN PRN Reason: Pain 1 to 4 Aspirin (Ecotrin) 81 mg PO DAILY MISAEL Last Admin: 02/07/18 08:58 Dose: 81 mg Bumetanide (Bumex Inj) 1 mg IVP BIDDIURETIC MISAEL Last Admin: 02/07/18 06:49 Dose: 1 mg Carboxymethylcellulose (Refresh 1% Ophth Drops) 1 drops EACHEYE PRN PRN PRN Reason: Dry Eye Last Admin: 02/06/18 10:28 Dose: 1 drops Carvedilol (Coreg) 6.25 mg PO BID [facility] [place] Last Admin: 02/07/18 08:58 Dose: 6.25 mg Enoxaparin Sodium (Lovenox) 40 mg SUBQ DAILY [facility] [place] Last Admin: 02/07/18 08:58 Dose: 40 mg Famotidine (Pepcid) 20 mg PO DAILY [facility] [place] Last Admin: 02/07/18 08:58 Dose: 20 mg Gabapentin (Neurontin) 300 mg PO TID [facility] [place] Last Admin: 02/07/18 06:50 Dose: 300 mg Insulin Aspart (Novolog) 1 - 9 unit SUBQ 0800,1200,1700,2100 [facility] [place]; Protocol Last Admin: 02/07/18 07:59 Dose: 3 unit Insulin Glargine (Lantus Solostar) 8 unit SUBQ QDBREAKFAST [facility] [place] Last Admin: 02/07/18 08:03 Dose: 8 unit Isosorbide Mononitrate (Imdur) 30 mg PO DAILY [facility] [place] Last Admin: 02/07/18 08:58 Dose: 30 mg Losartan Potassium (Cozaar) 100 mg PO DAILY [facility] [place] Last Admin: 02/07/18 08:58 Dose: 100 mg Methylphenidate HCl (Ritalin) 20 mg PO 0800,1400 [facility] [place] Last Admin: 02/07/18 07:57 Dose: 20 mg Nitroglycerin (Nitro-Bid (Pkt)) 1 inch TOP 0600,1200 [facility] [place] Last Admin: 02/07/18 06:49 Dose: 1 inch Ondansetron HCl (Zofran Inj) 4 mg IVP Q6HR PRN PRN Reason: Nausea / Vomiting Oxycodone HCl (Roxicodone) 5 mg PO Q4HR PRN PRN Reason: Pain 5 to 7 Polyethylene Glycol (Miralax) 17 gm PO DAILY [facility] [place] Last Admin: 02/07/18 08:58 Dose: 17 gm Potassium Chloride (K-Dur) 40 meq PO DAILYWM [facility] [place] Last Admin: 02/07/18 07:57 Dose: 40 meq Prochlorperazine Edisylate (Compazine Inj) 10 mg IVP Q6HR PRN PRN Reason: Nausea / Vomiting Promethazine HCl (Phenergan Inj) 25 mg IM Q6HR PRN PRN Reason: Nausea / Vomiting Sodium Chloride (Normal Saline Flush 0.9%) 10 ml IVP PRN PRN PRN Reason: NEEDED PER PROVIDER ORDERS Last Admin: 02/06/18 08:28 Dose: 10 ml Sodium Chloride (Normal Saline Flush 0.9%) 10 ml IVP 0100,0900,1700 [facility] [place] Last Admin: 02/07/18 08:58 Dose: 10 ml Spironolactone (Aldactone) 25 mg PO BID [facility] [place] Last Admin: 02/07/18 08:58 Dose: 25 mg Gabapentin 300 mg PO TID 12/09/17 Glipizide 5 mg PO DAILYWM 12/09/17 Methylphenidate HCl 20 mg PO 0800,1400 12/09/17 Bumetanide 2 mg PO DAILY 02/06/18 Carvedilol 6.25 mg PO BID 02/06/18 Metformin HCl 500 tab PO BIDWM 02/06/18 Spironolactone [Aldactone] 25 mg PO DAILY 02/06/18 Objective - Vital Signs/Intake & Output Reviewed Vital Signs: Yes Vital Signs: Vital Signs x48h Temp Pulse Resp BP Pulse Ox 02/07/18 07:36 60 16 144/78 H 96 02/07/18 05:05 36.2 C L 61 16 136/79 H 93 Intake & Output: Intake & Output 02/04/18 02/05/18 02/06/18 02/07/18 23:59 23:59 23:59 23:59 Intake Total 16 1630 540 Output Total 125 3600 2200 Balance -109 -1970 -1660 - Objective General Appearance: positive: No acute distress, Alert, Other (Sitting up at the side of the bed. Using the tray to have books and magazines for him to read and review.) Eyes Bilateral: positive: PERRL, EOMI ENT: positive: Pharynx nml Neck: positive: No JVD. negative: Stiff neck, Carotid bruit Respiratory: positive: Chest non-tender, No respiratory distress, Rales. negative: Wheezes, Rhonchi Cardiovascular: positive: Regular rate & rhythm, Systolic murmur. negative: Gallop/S4 Abdomen: positive: Non-tender, No organomegaly, Nml bowel sounds, No distention, Hepatomegaly Skin: positive: Warm, Dry Extremities: positive: Full ROM, Pedal edema (Much much improved. He is wearing SUJATA hose. There is only trace edema today.) Neurologic/Psychiatric: positive: Oriented x3, CN's nml (2-12), Motor nml, Weakness - Lab Results Fish Bones: 02/07/18 05:20 02/07/18 05:20 Other Labs: Lab Results x24hrs 02/07/18 02/07/18 02/07/18 Range/Units 07:27 05:20 05:20 WBC (4.8-10.8) x10^3/uL RBC (4.70-6.10) 10^6/uL Hgb (14.0-18.0) g/dL Hct (42.0-52.0) % MCV (80.0-94.0) fL MCH (27.0-31.0) pg MCHC (32.0-36.0) g/dL RDW (12.0-15.0) % Plt Count (130-450) 10^3/uL MPV (7.4-11.4) fL Neut # (Auto) (1.5-6.6) 10^3/uL Lymph # (Auto) (1.5-3.5) 10^3/uL [place] # (Auto) (0.0-1.0) 10^3/uL Eos # (Auto) (0.0-0.7) 10^3/uL Baso # (Auto) (0.0-0.1) 10^3/uL Absolute Nucleated RBC x10^3/uL Nucleated RBC % /100WBC Manual Slide Review Platelet Estimate (NORMAL) RBC Morph Micro Appear (NORMAL) Sodium 134 L (135-145) mmol/L Potassium 4.1 (3.5-5.0) mmol/L Chloride 95 L (101-111) mmol/L Carbon Dioxide 28 (21-32) mmol/L Anion Gap 11.0 (6-13) BUN 47 H (6-20) mg/dL Creatinine 2.1 H (0.6-1.2) mg/dL Estimated GFR (MDRD) 36 L (>89) Glucose 204 H (70-100) mg/dL POC Whole Bld Glucose 183 H (70 - 100) mg/dL Calcium 8.9 (8.5-10.3) mg/dL Magnesium 2.0 (1.7-2.8) mg/dL Total Bilirubin 4.0 H (0.2-1.0) mg/dL AST 28 (10-42) IU/L ALT 18 (10-60) IU/L Alkaline Phosphatase 157 H (42-121) IU/L B-Natriuretic Peptide 3016 H (5-100) pg/mL Total Protein 6.5 L (6.7-8.2) g/dL Albumin 3.3 (3.2-5.5) g/dL Globulin 3.2 (2.1-4.2) g/dL Albumin/Globulin Ratio 1.0 (1.0-2.2) 02/07/18 02/06/18 02/06/18 Range/Units 05:20 20:57 16:36 WBC 7.0 (4.8-10.8) x10^3/uL RBC 4.51 L (4.70-6.10) 10^6/uL Hgb 12.4 L (14.0-18.0) g/dL Hct 39.1 L (42.0-52.0) % MCV 86.7 (80.0-94.0) fL MCH 27.4 (27.0-31.0) pg MCHC 31.6 L (32.0-36.0) g/dL RDW 21.8 H (12.0-15.0) % Plt Count 196 (130-450) 10^3/uL MPV 8.5 (7.4-11.4) fL Neut # (Auto) 5.3 (1.5-6.6) 10^3/uL Lymph # (Auto) 0.8 L (1.5-3.5) 10^3/uL [place] # (Auto) 0.6 (0.0-1.0) 10^3/uL Eos # (Auto) 0.1 (0.0-0.7) 10^3/uL Baso # (Auto) 0.1 (0.0-0.1) 10^3/uL Absolute Nucleated RBC 0.00 x10^3/uL Nucleated RBC % 0.1 /100WBC Manual Slide Review Indicated Platelet Estimate NORMAL (130-450,000) (NORMAL) RBC Morph Micro Appear 1+ HYPOCHROMASIA (NORMAL) Sodium (135-145) mmol/L Potassium (3.5-5.0) mmol/L Chloride (101-111) mmol/L Carbon Dioxide (21-32) mmol/L Anion Gap (6-13) BUN (6-20) mg/dL Creatinine (0.6-1.2) mg/dL Estimated GFR (MDRD) (>89) Glucose (70-100) mg/dL POC Whole Bld Glucose 196 H 248 H (70 - 100) mg/dL Calcium (8.5-10.3) mg/dL Magnesium (1.7-2.8) mg/dL Total Bilirubin (0.2-1.0) mg/dL AST (10-42) IU/L ALT (10-60) IU/L Alkaline Phosphatase (42-121) IU/L B-Natriuretic Peptide (5-100) pg/mL Total Protein (6.7-8.2) g/dL Albumin (3.2-5.5) g/dL Globulin (2.1-4.2) g/dL Albumin/Globulin Ratio (1.0-2.2) ABX Reporting Has patient been on IV antibiotics over the past 48 hours?: No Assessment/Plan - Problem List (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 On the patient's most recent echocardiogram from December of this year the patient's ejection fraction was 20-25%, he had a moderate right ventricular enlargement, he had moderately impaired right ventricular systolic function, moderate mitral regurgitation, severely abnormal right heart pressures and a right ventricular systolic pressure of 77. The patient has both right and left-sided heart failure which is why he has severe shortness of breath along with hepatic congestion and severe edema of his abdominal wall as well as his bilateral lower extremities. At this point the patient is NYHA class III and nearly class IV with severe symptoms with just mild activity. The patient is limited to a scoo ter to get around the home. He can barely walk 5 feet without having to stop because of shortness of breath and fatigue. This is all progressed over the last month and is likely secondary to a CHF exacerbation in spite of being compliant with meds. He has fallen several times now. I have described at length his anatomy and what it means to have bilateral ventricular failure and how his pump is failing in spite of max medical therapy. Plan: Continue IV Bumex 1 mg twice daily but his creatinine abida yesterday and today. It's the highest it's been. Give patient one-time dose of Zaroxolyn Strict I's and O's with a [phone] as of this am Daily weights with admit 80.7 and today 78. 2 L fluid restriction 2 g sodium restriction Continue patient's Coreg We will place the patient back on Imdur, Cozaar and spironolactone given his hypertension Placed on Nitropaste Monitored BNP which was 6057>6238>3016 today. Much better. On 02/06 I spoke with the patient and his about his goals of care and asked him to consider a palliative care consult. He will think about that and about Hospice. On admit, in the presence of the patient's son, the patient agreed with his son to be a full code but stated that he needs to think it over and talk with his . On 02/06, he and his don't want Full code and want DNR. POLST form filled out. Today he is ok with my order of Home Health RN, bath aid, PT. He is ok with moving forward with Palliative Care consult. Poor prognosis overall. No need for an echocardiogram given the patient just had an echo 2 months ago. Patient will likely need 2-3 days of diuresis by IV diuretic. Doing so much better today. Home by hopefully tomorrow. (2) Hypertension Conclusion/Plan: Patient has a history of hypertension and on presentation to the emergency department the patient was severely hypertensive with blood pressure of 157/110. The patient was given Nitropaste in the emergency department with minimal re sponse. The patient was placed on his home medication of carvedilol, Imdur and spironolactone. He will continue on Nitropaste and we will place him on Bumex 1 mg IV twice daily. The patient's hypertension is likely worsening his pulmonary edema and CHF. It is pertinent that we get it under control. today systolic 136-144. Qualifiers: Hypertension type: essential hypertension Qualified Code(s): I10 - Essential (primary) hypertension (3) Acute renal failure superimposed on stage 3 chronic kidney disease Conclusion/Plan: Patient has a history of chronic kidney disease stage III. On presentation the patient's creatinine is elevated up to 1.9. then 2.0>2.1 today. The patient appears to have acute on chronic renal failure. This appears to be secondary to cardiorenal syndrome as patient is congested and is having poor flow to his kidneys as is evident by the elevated BUN. I explained this to he and his . The patient will be treated with IV Lasix and we will continue to monitor his creatinine. We will avoid any nephrotoxic agents. Qualifiers: Acute renal failure type: unspecified Qualified Code(s): N17.9 - Acute kidney failure, unspecified; N18.3 - Chronic kidney disease, stage 3 (moderate) (4) Elevated bilirubin Conclusion/Plan: Patient has had chronically elevated bilirubin ranging from 2-5 and on admit his bilirubin was elevated to 6.5 which is the highest that it has ever been. The patient's bilirubin is likely elevated secondary to liver congestion from his severe congestive heart failure with cor pulmonale. The patient has had a recent CT of his abdomen and pelvis which did show ascites but also there was concern for some lesions on his kidney. Given the patient's elevated bilirubin and history of renal lesions we obtained an abdominal ultrasound . In looking at his kidneys, the right one does not have a mass. The left one has a 3 cm cyst. There is trace ascites. He has hepatic hemangiomas. No evidence of cholelithiasis or biliary obstruction. Patient will be treated with IV Bumex and other treatment for CHF and we will continue to monitor his bilirubin. I believe that with the treatment of his CHF his bilirubin will improve. On admit 6.5>5.8>4.0 today. (5) Hyponatremia Conclusion/Plan: The patient does have mild hyponatremia with a sodium of 133. The patient appears to have hypovolemic hyponatremia. Patient will be treated with IV Bumex and we will continue to monitor the patient's sodium. 02/05 he is 136. Today 134. (6) Diabetes Conclusion/Plan: The patient has a history of type 2 diabetes and does not insulin-dependent. The patient uses metformin and glipizide at home. On presentation the patient's blood glucose is well controlled. 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 Glucose today is 183 and 214. Will increase Lantus to 12 units. We will also ask for new diabetic instruction on the use of Lantus since I do not think he should go home on glyburide and metformin Plan: Hold patient's metformin and glipizide while he is hospitalized. Do not resume at discharge. Place patient on sliding scale insulin during hospitalization Place patient on diabetic diet Check blood glucose before meals at bedtime Check hemoglobin A1c which is 10.5%. Started Lantus 8 units in the morning and will increase to 12. Goal is for him to be 7%-8% in outpatient setting in view of end stage CHF. 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 The patient uses gabapentin at home for his peripheral neuropathy. The patient's gabapentin will be continued while he is hospitalized.The tells us that this is 1 of the main reasons he is more and more immobile. It just is not safe anymore because he cannot feel his feet on the ground and he trips. Combined this with the shortness of breath and the peripheral neuropathy she thinks that is what he has been falling so much. Physical therapy has been ordered and has seen the patient. She thinks he would be a great candidate for home health physical therapy. He also has a four-wheel walker that is not working at home and the brakes caused him to fall even more. So she is asking for a front wheel walker with only 2 wheels. Qualifiers: Peripheral neuropathy type: polyneuropathy associated with underlying disease Qualified Code(s): G63 - Polyneuropathy in diseases classified elsewhere
[2018-02-07] MEDS: SODIUM CHLORIDE FLUSH 0.9% 10 ML SYRINGE IVP PRN (14:33)
[2018-02-07] MEDS ORDERED: MAGNESIUM SULFATE 2 GRAM 2 GM/50 ML BAG IV ONE (18:54)
[2018-02-08] MEDS: NITROGLYCERIN 2% PASTE TOP SCH ×2 (05:41→11:49)
[2018-02-08] MEDS: GABAPENTIN 300 MG CAPSULE PO SCH ×3 (05:42→20:59)
[2018-02-08 06:49] LABS: BASOPHILS # (AUTO) 0.1 10^3/uL (0.0-0.1); BASOPHILS % (AUTO) 0.7 %; EOSINOPHILS # (AUTO) 0.1 10^3/uL (0.0-0.7); EOSINOPHILS % (AUTO) 0.6 %; HGB - HEMOGLOBIN 12.5 g/dL (14.0-18.0); LYMPHOCYTES # (AUTO) 0.6 10^3/uL (1.5-3.5); LYMPHOCYTES % (AUTO) 4.6 %; MEAN CORPUSCULAR HEMOGLOBIN 27.5 pg (27.0-31.0); MEAN CORPUSCULAR HGB CONC 31.7 g/dL (32.0-36.0); MEAN CORPUSCULAR VOLUME 86.6 fL (80.0-94.0); MEAN PLATELET VOLUME 8.7 fL (7.4-11.4); MONOCYTES # (AUTO) 0.9 10^3/uL (0.0-1.0); MONOCYTES % (AUTO) 6.9 %; NEUTROPHILS # (AUTO) 11.4 10^3/uL (1.5-6.6); NEUTROPHILS % (AUTO) 87.2 %; PLT - PLATELET COUNT 214 10^3/uL (130-450); RED BLOOD COUNT 4.55 10^6/uL (4.70-6.10); RED CELL DISTRIBUTION WIDTH 21.7 % (12.0-15.0)
[2018-02-08 07:03] LABS: ALBUMIN 3.4 g/dL (3.2-5.5); ALBUMIN/GLOBULIN RATIO 1.1 (1.0-2.2); BILIRUBIN,TOTAL 4.2 mg/dL (0.2-1.0); CREATININE 2.1 mg/dL (0.6-1.2); MAGNESIUM 2.4 mg/dL (1.7-2.8); TOTAL PROTEIN 6.5 g/dL (6.7-8.2)
[2018-02-08 08:43] LABS: PLATELET ESTIMATE, MANUAL NORMAL (130-450,000) (NORMAL)
[2018-02-08] MEDS: ISOSORBIDE MONONITRATE ER 30 MG TABLET PO SCH (08:50)
[2018-02-08] MEDS: POTASSIUM CHLORIDE 20 MEQ TABLET PO SCH (08:50)
[2018-02-08] MEDS: CARVEDILOL 3.125 MG TABLET PO SCH ×2 (08:50→20:58)
[2018-02-08] MEDS: LOSARTAN 50 MG TABLET PO SCH (08:50)
[2018-02-08] MEDS: POLYETHYLENE GLYCOL 3350 17 GM PACKET PO SCH (08:51)
[2018-02-08] MEDS: ENOXAPARIN 40 MG/0.4 ML SYRINGE SUBQ SCH (08:51)
[2018-02-08] MEDS: SPIRONOLACTONE 25 MG TABLET PO SCH ×2 (08:51→20:57)
[2018-02-08] MEDS: FAMOTIDINE 20 MG TABLET PO SCH (08:51)
[2018-02-08] MEDS: SODIUM CHLORIDE FLUSH 0.9% 10 ML SYRINGE IVP SCH ×3 (08:51→23:45)
[2018-02-08] MEDS: ASPIRIN EC 81 MG TABLET PO SCH (08:51)
[2018-02-08] MEDS: METHYLPHENIDATE 10 MG TABLET PO SCH ×2 (08:51→14:23)
[2018-02-08] MEDS: INSULIN ASPART 300 UNIT/3 ML PEN SUBQ SCH ×4 (09:01→20:58)
[2018-02-08] MEDS: INSULIN GLARGINE 300 UNIT/3 ML PEN SUBQ SCH (09:03)
[2018-02-08] MEDS ORDERED: BUMETANIDE 1 MG TABLET PO SCH (11:00)
--- NOTE | 2018-02-08 11:04 | PROVIDER PROGRESS NOTE ---
Subjective - Prog Note Date Prog Note Date: 02/08/18 Prog Note Time: 12:01 - Subjective Pt reports feeling: Improved Subjective: He fell yesterday. He went to the bathroom and when he got up off the commode he was using his walker like he would use the scooter. He uses a scooter at home as a ballast. He pulls himself up using the scooter when he goes to the bathroom. Yesterday he used a walker like that and just pull the walker over and he fell over as well. When I saw him yesterday, he was sitting on the floor. Awake alert. No trauma to his head. We put a lap belt on him, had him bend his knees and put his feet out from underneath him and we were able to pull them up using 2 nurses. He was unable to walk using a walker back into bed. Today he has a little bit of right knee pain. But he always does from his p revious right knee replacement. He landed on his left side, there is no residual left rib cage pain, no left shoulder pain, no left hip pain. He is antsy to go home. He is feeling the best he is felt in a really long time. We are working on controlling his sugars. Unfortunately his insurance plan does not cover Lantus and we will have to change his medications around. Current Medications - Current Medications Current Medications: Active Medications Acetaminophen (Tylenol) 650 mg PO Q4HR PRN PRN Reason: Pain 1 to 4 Aspirin (Ecotrin) 81 mg PO DAILY [facility] Last Admin: 02/08/18 08:51 Dose: 81 mg Bumetanide (Bumex) 2 mg PO DAILY [facility] Last Admin: 02/08/18 11:49 Dose: 2 mg Carboxymethylcellulose (Refresh 1% Ophth Drops) 1 drops EACHEYE PRN PRN PRN Reason: Dry Eye Last Admin: 02/06/18 10:28 Dose: 1 drops Carvedilol (Coreg) 6.25 mg PO BID [facility] Last Admin: 02/08/18 08:50 Dose: 6.25 mg Enoxaparin Sodium (Lovenox) 40 mg SUBQ DAILY [facility] Last Admin: 02/08/18 08:51 Dose: 40 mg Famotidine (Pepcid) 20 mg PO DAILY [facility] Last Admin: 02/08/18 08:51 Dose: 20 mg Gabapentin (Neurontin) 300 mg PO TID [facility] Last Admin: 02/08/18 05:42 Dose: 300 mg Insulin Aspart (Novolog) 1 - 9 unit SUBQ 0800,1200,1700,2100 [facility]; Protocol Last Admin: 02/08/18 11:49 Dose: 9 unit Insulin Human NPH (Novolin N) 6 unit SUBQ BIDAC [facility] Isosorbide Mononitrate (Imdur) 30 mg PO DAILY [facility] Last Admin: 02/08/18 08:50 Dose: 30 mg Losartan Potassium (Cozaar) 100 mg PO DAILY [facility] Last Admin: 02/08/18 08:50 Dose: 100 mg Methylphenidate HCl (Ritalin) 20 mg PO 0800,1400 [facility] Last Admin: 02/08/18 08:51 Dose: 20 mg Nitroglycerin (Nitro-Bid (Pkt)) 1 inch TOP 0600,1200 [facility] Last Admin: 02/08/18 11:49 Dose: 1 inch Ondansetron HCl (Zofran Inj) 4 mg IVP Q6HR PRN PRN Reason: Nausea / Vomiting Oxycodone HCl (Roxicodone) 5 mg PO Q4HR PRN PRN Reason: Pain 5 to 7 Polyethylene Glycol (Miralax) 17 gm PO DAILY [facility] Last Admin: 02/08/18 08:51 Dose: 17 gm Potassium Chlor[facility] (K-Dur) [facility] [place] Last Admin: 02/08/18 08:50 Dose: 40 meq Prochlorperazine Edisylate (Compazine Inj) 10 mg IVP Q6HR PRN PRN Reason: Nausea / Vomiting Promethazine HCl (Phenergan Inj) 25 mg IM Q6HR PRN PRN Reason: Nausea / Vomiting Sodium Chloride (Normal Saline Flush 0.9%) 10 ml IVP PRN PRN PRN Reason: NEEDED PER PROVIDER ORDERS Last Admin: 02/07/18 14:33 Dose: 20 ml Sodium Chloride (Normal Saline Flush 0.9%) 10 ml IVP 0100,0900,1700 [facility] Last Admin: 02/08/18 08:51 Dose: 10 ml Spironolactone (Aldactone) 25 mg PO BID [facility] Last Admin: 02/08/18 08:51 Dose: 25 mg Gabapentin 300 mg PO TID 12/09/17 Glipizide 5 mg PO DAILYWM 12/09/17 Methylphenidate HCl 20 mg PO 0800,1400 12/09/17 Bumetanide 2 mg PO DAILY 02/06/18 Carvedilol 6.25 mg PO BID 02/06/18 Metformin HCl 500 tab PO BIDWM 02/06/18 Spironolactone [Aldactone] 25 mg PO DAILY 02/06/18 Objective - Vital Signs/Intake & Output Reviewed Vital Signs: Yes Vital Signs: Vital Signs x48h Temp Pulse Resp BP Pulse Ox 02/08/18 07:57 37.1 C 64 14 126/59 L 94 02/08/18 04:19 36.9 C 71 18 136/75 H 93 Intake & Output: Intake & Output 02/05/18 02/06/18 02/07/18 02/08/18 23:59 23:59 23:59 23:59 Intake Total 16 1630 1340 300 Output Total 125 3600 4950 1700 Balance -109 -1970 -3610 -1400 - Objective General Appearance: positive: No acute distress, Alert, Other (Tall lanky black male who looks stated age.Reading a newspaper, watching TV and alternating between the activities.) Eyes Bilateral: positive: PERRL, EOMI ENT: positive: Pharynx nml Neck: positive: No JVD. negative: Stiff neck, Carotid bruit Respiratory: positive: Chest non-tender. negative: Wheezes, Rales, Rhonchi Cardiovascular: positive: Regular rate & rhythm, Systolic murmur. negative: Gallop/S4, Friction rub Abdomen: positive: Non-tender, No organomegaly, Nml bowel sounds, No distention, Hepatomegaly Skin: positive: Warm, Dry Extremities: positive: Pedal edema (But really it is trace now. From what he came in and what he is now his legs are somewhat skinnier.) Neurologic/Psychiatric: positive: Oriented x3, CN's nml (2-12), Motor nml, Weakness - Lab Results Fish Bones: 02/08/18 06:15 02/08/18 06:15 Other Labs: Lab Results x24hrs 02/08/18 02/08/18 02/08/18 Range/Units 07:44 06:15 06:15 WBC (4.8-10.8) x10^3/uL RBC (4.70-6.10) 10^6/uL Hgb (14.0-18.0) g/dL Hct (42.0-52.0) % MCV (80.0-94.0) fL MCH (27.0-31.0) pg MCHC (32.0-36.0) g/dL RDW (12.0-15.0) % Plt Count (130-450) 10^3/uL MPV (7.4-11.4) fL Neut # (Auto) (1.5-6.6) 10^3/uL Lymph # (Auto) (1.5-3.5) 10^3/uL Sheridan # (Auto) (0.0-1.0) 10^3/uL Eos # (Auto) (0.0-0.7) 10^3/uL Baso # (Auto) (0.0-0.1) 10^3/uL Absolute Nucleated RBC x10^3/uL Nucleated RBC % /100WBC Manual Slide Review Platelet Estimate (NORMAL) RBC Morph Micro Appear (NORMAL) Sodium 135 (135-145) mmol/L Potassium 4.2 (3.5-5.0) mmol/L Chloride 94 L (101-111) mmol/L Carbon Dioxide 30 (21-32) mmol/L Anion Gap 11.0 (6-13) BUN 49 H (6-20) mg/dL Creatinine 2.1 H (0.6-1.2) mg/dL Estimated GFR (MDRD) 36 L (>89) Glucose 242 H (70-100) mg/dL POC Whole Bld Glucose 286 H (70 - 100) mg/dL Calcium 9.0 (8.5-10.3) mg/dL Magnesium 2.4 (1.7-2.8) mg/dL Total Bilirubin 4.2 H (0.2-1.0) mg/dL AST 30 (10-42) IU/L ALT 20 (10-60) IU/L Alkaline Phosphatase 160 H (42-121) IU/L B-Natriuretic Peptide 1779 H (5-100) pg/mL Total Protein 6.5 L (6.7-8.2) g/dL Albumin 3.4 (3.2-5.5) g/dL Globulin 3.1 (2.1-4.2) g/dL Albumin/Globulin Ratio 1.1 (1.0-2.2) 02/08/18 02/07/18 02/07/18 Range/Units 06:15 20:38 15:58 WBC 13.0 H (4.8-10.8) x10^3/uL RBC 4.55 L (4.70-6.10) 10^6/uL Hgb 12.5 L (14.0-18.0) g/dL Hct 39.4 L (42.0-52.0) % MCV 86.6 (80.0-94.0) fL MCH 27.5 (27.0-31.0) pg MCHC 31.7 L (32.0-36.0) g/dL RDW 21.7 H (12.0-15.0) % Plt Count 214 (130-450) 10^3/uL MPV 8.7 (7.4-11.4) fL Neut # (Auto) 11.4 H (1.5-6.6) 10^3/uL Lymph # (Auto) 0.6 L (1.5-3.5) 10^3/uL [place] # (Auto) 0.9 (0.0-1.0) 10^3/uL Eos # (Auto) 0.1 (0.0-0.7) 10^3/uL Baso # (Auto) 0.1 (0.0-0.1) 10^3/uL Absolute Nucleated RBC 0.01 x10^3/uL Nucleated RBC % 0.0 /100WBC Manual Slide Review Indicated Platelet Estimate NORMAL (130-450,000) (NORMAL) RBC Morph Micro Appear 1+ OVALOCYTES (NORMAL) Sodium (135-145) mmol/L Potassium (3.5-5.0) mmol/L Chloride (101-111) mmol/L Carbon Dioxide (21-32) mmol/L Anion Gap (6-13) BUN (6-20) mg/dL Creatinine (0.6-1.2) mg/dL Estimated GFR (MDRD) (>89) Glucose (70-100) mg/dL POC Whole Bld Glucose 140 H 123 H (70 - 100) mg/dL Calcium (8.5-10.3) mg/dL Magnesium (1.7-2.8) mg/dL Total Bilirubin (0.2-1.0) mg/dL AST (10-42) IU/L ALT (10-60) IU/L Alkaline Phosphatase (42-121) IU/L B-Natriuretic Peptide (5-100) pg/mL Total Protein (6.7-8.2) g/dL Albumin (3.2-5.5) g/dL Globulin (2.1-4.2) g/dL Albumin/Globulin Ratio (1.0-2.2) ABX Reporting Has patient been on IV antibiotics over the past 48 hours?: No Assessment/Plan - Problem List (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 On the patient's most recent echocardiogram from December of this year the patient's ejection fraction was 20-25%, he had a moderate right ventricular enlargement, he had moderately impaired right ventricular systolic function, moderate mitral regurgitation, severely abnormal right heart pressures and a right ventricular systolic pressure of 77. The patient has both right and left-sided heart failure which is why he has severe shortness of breath along with hepatic congestion and severe edema of his abdominal wall as well as his bilateral lower extremities. At this point the patient is NYHA class III and nearly class IV with severe symptoms with just mild activity. The patient is limited to a scooter to get around the home. He can barely walk 5 feet without having to sto p because of shortness of breath and fatigue. This is all progressed over the last month and is likely secondary to a CHF exacerbation in spite of being compliant with meds. He has fallen several times now. I have described at length his anatomy and what it means to have bilateral ventricular failure and how his pump is failing in spite of max medical therapy. He fell on 02/07 getting up from bathroom commode. Lost his balance with the walker and landed on left hip and left side. No blow to head. Able to get up. Plan: s/p IV Bumex 1 mg twice daily but his creatinine abida 02/06 and 02/07. It's the highest it's been. s/p one-time dose of Zaroxolyn. Bumex stopped yesterday so will resume po today. Strict I's and O's with a [phone] as of this am Daily weights with admit 80.7 and today 74. 2 L fluid restriction 2 g sodium restriction Continue patient's Coreg We will place the patient back on Imdur, Cozaar and spironolactone given his hypertension Placed on Nitropaste Monitored BNP which was 6057>6238>3016>1779 today. Much better. On 02/06 I spoke with the patient and his about his goals of care and asked him to consider a palliative care consult. He will think about that and about Hospice. On admit, in the presence of the patient's son, the patient agreed with his son to be a full code but stated that he needs to think it over and talk with his . On 02/06, he and his don't want Full code and want DNR. POLST form filled out. He is ok with my order of Home Health RN, bath aid, PT. He is ok with moving forward with Palliative Care consult. Poor prognosis overall. No need for an echocardiogram given the patient just had an echo 2 months ago. Patient will likely need 2-3 days of diuresis by IV diuretic. Doing so much better but community health educator needs more time to control DM in view of med change. Home on Saturday. (2) Hypertension Conclusion/Plan: Patient has a history of hypertension and on presentation to the emergency department the patient was severely hypertensive with blood pressure of 157/110. The patient was given Nitropaste in the emergency department with minimal response. The patient was placed on his home medication of carvedilol, Imdur and spironolactone. He will continue on Nitropaste and we will place him on Bumex 1 mg IV twice daily. The patient's hypertension is likely worsening his p ulmonary edema and CHF. It is pertinent that we get it under control. today systolic 111-136.. Qualifiers: Hypertension type: essential hypertension Qualified Code(s): I10 - Essential (primary) hypertension (3) Acute renal failure superimposed on stage 3 chronic kidney disease Conclusion/Plan: Patient has a history of chronic kidney disease stage III. On presentation the patient's creatinine is elevated up to 1.9. then 2.0>2.1 today. The patient appears to have acute on chronic renal failure. This appears to be secondary to cardiorenal syndrome as patient is congested and is having poor flow to his kidneys as is evident by the elevated BUN. I explained this to he and his . The patient was treated with IV bumex, held for part of yesterday and resumed po bumex today. We will continue to monitor his creatinine. We will avoid any nephrotoxic agents. Qualifiers: Acute renal failure type: unspecified Qualified Code(s): N17.9 - Acute kidney failure, unspecified; N18.3 - Chronic kidney disease, stage 3 (moderate) (4) Elevated bilirubin Conclusion/Plan: Patient has had chronically elevated bilirubin ranging from 2-5 and on admit his bilirubin was elevated to 6.5 which is the highest that it has ever been. The patient's bilirubin is likely elevated secondary to liver congestion from his severe congestive heart failure with cor pulmonale. The patient has had a recent CT of his abdomen and pelvis which did show ascites but also there was concern for some lesions on his kidney. Given the patient's elevated bilirubin and history of renal lesions we obtained an abdominal ultrasound . In looking at his kidneys, the right one does not have a mass. The left one has a 3 cm cyst. There is trace ascites. He has hepatic hemangiomas. No evidence of cholelithiasis or biliary obstruction. Patient will be treated with IV Bumex and other treatment for CHF and we will continue to monitor his bilirubin. I believe that with the treatment of his CHF his bilirubin will improve. On admit 6.5>5.8>4.0>4.2 today. (5) Hyponatremia Conclusion/Plan: The patient does have mild hyponatremia with a sodium of 133. The patient appears to have hypovolemic hyponatremia. Patient will be treated with IV Bumex and we will continue to monitor the patient's sodium. 02/05 he is 136. Today 135. (6) Diabetes Conclusion/Plan: The patient has a history of type 2 diabetes and does not insulin-dependent. The patient uses metformin and glipizide at home. On presentation the patient's blood glucose is well controlled. 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 Glucose today is 183 and 214. I increased Lantus to 12 units yesterday and he has been seen for diabetic instruction. I do not feel that he should be on metformin or sulfonylurea in view of his CKD, but his insurance company placed all insulins on Tier 3 level. For Lantus he will pay >$400 out of pocket. As such I will change lantus to NPH which is much much less expensive. Plan: Hold patient's metformin and glipizide while he is hospitalized. Do not resume at discharge. Place patient on sliding scale insulin during hospitalization Place patient on diabetic diet Check blood glucose before meals at bedtime Check hemoglobin A1c which is 10.5%. Started Lantus 8 units in the morning and increased to 12. Now will stop lantus and change to NPH 6 units SQ bid. Goal is for him to be 7%-8% in outpatient setting in view of end stage CHF. 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 The patient uses gabapentin at home for his peripheral neuropathy. The patient's gabapentin will be continued while he is hospitalized.The tells us that this is 1 of the main reasons he is more and more immobile. It just is not safe anymore because he cannot feel his feet on the ground and he trips. Combined this with the shortness of breath and the peripheral neuropathy she thinks that is what he has been falling so much. Physical therapy has been ordered and has seen the patient. She thinks he would be a great candidate for home health physical therapy. He also has a four-wheel walker that is not working at home and the brakes caused him to fall even more. So she is asking for a front wheel walker with only 2 wheels. PT is seeing him. Walked >40 feet before DONNELLY got the best of him. Improved from home when he was only able to to 5 feet. Qualifiers: Peripheral neuropathy type: polyneuropathy associated with underlying disease Qualified Code(s): G63 - Polyneuropathy in diseases classified elsewhere
[2018-02-08] MEDS: INSULIN NPH HUMAN 100 UNIT/1 ML 10 ML MDV SUBQ SCH (16:46)
[2018-02-09 06:19] LABS: BASOPHILS # (AUTO) 0.1 10^3/uL (0.0-0.1); BASOPHILS % (AUTO) 0.9 %; EOSINOPHILS # (AUTO) 0.1 10^3/uL (0.0-0.7); EOSINOPHILS % (AUTO) 1.6 %; HGB - HEMOGLOBIN 12.1 g/dL (14.0-18.0); LYMPHOCYTES # (AUTO) 1.1 10^3/uL (1.5-3.5); LYMPHOCYTES % (AUTO) 12.3 %; MEAN CORPUSCULAR HEMOGLOBIN 28.6 pg (27.0-31.0); MEAN CORPUSCULAR HGB CONC 33.5 g/dL (32.0-36.0); MEAN CORPUSCULAR VOLUME 85.4 fL (80.0-94.0); MEAN PLATELET VOLUME 8.1 fL (7.4-11.4); MONOCYTES # (AUTO) 0.8 10^3/uL (0.0-1.0); MONOCYTES % (AUTO) 8.5 %; NEUTROPHILS # (AUTO) 6.8 10^3/uL (1.5-6.6); NEUTROPHILS % (AUTO) 76.7 %; PLT - PLATELET COUNT 209 10^3/uL (130-450); RED BLOOD COUNT 4.23 10^6/uL (4.70-6.10); RED CELL DISTRIBUTION WIDTH 21.4 % (12.0-15.0); WHITE BLOOD COUNT 8.8 x10^3/uL (4.8-10.8)
[2018-02-09 06:31] LABS: ALBUMIN 3.4 g/dL (3.2-5.5); BILIRUBIN,TOTAL 3.8 mg/dL (0.2-1.0); CREATININE 2.5 mg/dL (0.6-1.2); MAGNESIUM 2.6 mg/dL (1.7-2.8); TOTAL PROTEIN 6.7 g/dL (6.7-8.2)
[2018-02-09] MEDS: NITROGLYCERIN 2% PASTE TOP SCH (06:46)
[2018-02-09] MEDS: INSULIN NPH HUMAN 100 UNIT/1 ML 10 ML MDV SUBQ SCH ×3 (06:47→16:45)
[2018-02-09] MEDS: GABAPENTIN 300 MG CAPSULE PO SCH ×3 (06:53→22:12)
[2018-02-09] MEDS ORDERED: SODIUM CHLORIDE 0.9% 500 ML IV ONE (07:52)
[2018-02-09 07:57] LABS: PLATELET ESTIMATE, MANUAL NORMAL (130-450,000) (NORMAL)
[2018-02-09] MEDS: INSULIN ASPART 300 UNIT/3 ML PEN SUBQ SCH ×4 (09:06→20:16)
[2018-02-09] MEDS: BUMETANIDE 1 MG TABLET PO SCH (09:07)
[2018-02-09] MEDS: ASPIRIN EC 81 MG TABLET PO SCH (09:07)
[2018-02-09] MEDS: FAMOTIDINE 20 MG TABLET PO SCH (09:07)
[2018-02-09] MEDS: SPIRONOLACTONE 25 MG TABLET PO SCH ×2 (09:08→22:12)
[2018-02-09] MEDS: POTASSIUM CHLORIDE 20 MEQ TABLET PO SCH (09:11)
[2018-02-09] MEDS: METHYLPHENIDATE 10 MG TABLET PO SCH ×2 (09:12→14:19)
[2018-02-09] MEDS: ENOXAPARIN 40 MG/0.4 ML SYRINGE SUBQ SCH (09:15)
[2018-02-09] MEDS: POLYETHYLENE GLYCOL 3350 17 GM PACKET PO SCH (09:15)
[2018-02-09] MEDS: SODIUM CHLORIDE FLUSH 0.9% 10 ML SYRINGE IVP SCH ×2 (09:16→16:45)
[2018-02-09] MEDS: LOSARTAN 50 MG TABLET PO SCH (09:49)
[2018-02-09] MEDS: ISOSORBIDE MONONITRATE ER 30 MG TABLET PO SCH (09:51)
--- NOTE | 2018-02-09 10:49 | PROVIDER PROGRESS NOTE ---
Subjective - Prog Note Date Prog Note Date: 02/09/18 Prog Note Time: 10:56 - Subjective Pt reports feeling: Improved Subjective: Now that his orthopnea is resolved, his main complaint is his weak arms. He laments that he is all "skin and bone". He wants to know what he can do to increase the mass of muscle and his strength. Denies chest pain. Still short of breath but much improved than on admission. He is amazed that he can lay down and go to sleep at night. No abdominal pain. Had some hypoglycemia this morning with a glucose of 60 but he was asymptomatic. He is asking for more food. Current Medications - Current Medications Current Medications: Active Medications Acetaminophen (Tylenol) 650 mg PO Q4HR PRN PRN Reason: Pain 1 to 4 Aspirin (Ecotrin) 81 mg PO DAILY [facility] Last Admin: 02/09/18 09:07 Dose: 81 mg Bumetanide (Bumex) 1 mg PO DAILY [facility] Last Admin: 02/09/18 09:07 Dose: 1 mg Carboxymethylcellulose (Refresh 1% Ophth Drops) 1 drops EACHEYE PRN PRN PRN Reason: Dry Eye Last Admin: 02/06/18 10:28 Dose: 1 drops Carvedilol (Coreg) 6.25 mg PO BID [facility] Enoxaparin Sodium (Lovenox) 40 mg SUBQ DAILY [facility] Last Admin: 02/09/18 09:15 Dose: 40 mg Famotidine (Pepcid) 20 mg PO DAILY [facility] Last Admin: 02/09/18 09:07 Dose: 20 mg Gabapentin (Neurontin) 300 mg PO TID [facility] Last Admin: 02/09/18 06:53 Dose: 300 mg Insulin Aspart (Novolog) 2 - 10 unit SUBQ 0800,1200,1700,2100 [facility]; Protocol Last Admin: 02/09/18 09:06 Dose: Not Given Insulin Human NPH (Novolin N) 4 unit SUBQ BIDAC [facility] Last Admin: 02/09/18 09:06 Dose: Not Given Isosorbide Mononitrate (Imdur) 30 mg PO DAILY [facility] Last Admin: 02/09/18 09:51 Dose: Not Given Losartan Potassium (Cozaar) 100 mg PO DAILY [facility] Last Admin: 02/09/18 09:49 Dose: 100 mg Methylphenidate HCl (Ritalin) 20 mg PO 0800,1400 [facility] Last Admin: 02/09/18 09:12 Dose: 20 mg Ondansetron HCl (Zofran Inj) 4 mg IVP Q6HR PRN PRN Reason: Nausea / Vomiting Oxycodone HCl (Roxicodone) 5 mg PO Q4HR PRN PRN Reason: Pain 5 to 7 Polyethylene Glycol (Miralax) 17 gm PO DAILY [facility] Last Admin: 02/09/18 09:15 Dose: 17 gm Potassium [facility] ([facility]) [facility] [place] Admin: 02/09/18 09:11 Dose: 40 meq Prochlorperazine Edisylate (Compazine Inj) 10 mg IVP Q6HR PRN PRN Reason: Nausea / Vomiting Promethazine HCl (Phenergan Inj) 25 mg IM Q6HR PRN PRN Reason: Nausea / Vomiting Sodium Chloride (Normal Saline Flush 0.9%) 10 ml IVP PRN PRN PRN Reason: NEEDED PER PROVIDER ORDERS Last Admin: 02/07/18 14:33 Dose: 20 ml Sodium Chloride (Normal Saline Flush 0.9%) 10 ml IVP 0100,0900,1700 [facility] Last Admin: 02/09/18 09:16 Dose: 10 ml Spironolactone (Aldactone) 25 mg PO BID [facility] Last Admin: 02/09/18 09:08 Dose: 25 mg Gabapentin 300 mg PO TID 12/09/17 Glipizide 5 mg PO DAILYWM 12/09/17 Methylphenidate HCl 20 mg PO 0800,1400 12/09/17 Bumetanide 2 mg PO DAILY 02/06/18 Carvedilol 6.25 mg PO BID 02/06/18 Metformin HCl 500 tab PO BIDWM 02/06/18 Spironolactone [Aldactone] 25 mg PO DAILY 02/06/18 Objective - Vital Signs/Intake & Output Reviewed Vital Signs: Yes Vital Signs: Vital Signs x48h Temp Pulse Resp BP Pulse Ox 02/09/18 08:14 36.4 C L 60 14 102/63 97 02/09/18 06:35 60 98/57 L 02/09/18 04:00 36.3 C L 16 110/65 95 Intake & Output: Intake & Output 02/06/18 02/07/18 02/08/18 02/09/18 23:59 23:59 23:59 23:59 Intake Total 1630 1340 800 510 Output Total 3600 2280 2550 1700 Balance -1970 -3610 -1750 -1190 - Objective General Appearance: positive: No acute distress, Alert, Other (Tall lanky slightly deaf elderly gentleman well-groomed) Eyes Bilateral: positive: PERRL, EOMI ENT: positive: Pharynx nml Neck: positive: No JVD. negative: Stiff neck, Carotid bruit Respiratory: positive: Chest non-tender. negative: Wheezes, Rales, Rhonchi Cardiovascular: positive: Irregularly irregular, Systolic murmur. negative: Gallop/S4, Friction rub Abdomen: positive: Non-tender, No organomegaly, Nml bowel sounds, No distention, Hepatomegaly Skin: positive: Warm, Dry Extremities: positive: Full ROM, No pedal edema Neurologic/Psychiatric: positive: Oriented x3, CN's nml (2-12) (Except that he is deaf), Motor nml (Except that he is weak and deconditioned. Not too steady on his feet. Able to walk way more than when he came in.). negative: Sensation nml (He really has a dense peripheral neuropathy starting at his feet and at least the distal one third of his tib-fib skin area), Facial droop, Slurred/abnml speech - Lab Results Fish Bones: 02/09/18 06:10 02/09/18 06:10 Other Labs: Lab Results x24hrs 02/09/18 02/09/18 02/09/18 Range/Units 08:10 07:28 06:10 WBC (4.8-10.8) x10^3/uL RBC (4.70-6.10) 10^6/uL Hgb (14.0-18.0) g/dL Hct (42.0-52.0) % MCV (80.0-94.0) fL MCH (27.0-31.0) pg MCHC (32.0-36.0) g/dL RDW (12.0-15.0) % Plt Count (130-450) 10^3/uL MPV (7.4-11.4) fL Neut # (Auto) (1.5-6.6) 10^3/uL Lymph # (Auto) (1.5-3.5) 10^3/uL [place] # (Auto) (0.0-1.0) 10^3/uL Eos # (Auto) (0.0-0.7) 10^3/uL Baso # (Auto) (0.0-0.1) 10^3/uL Absolute Nucleated RBC x10^3/uL Nucleated RBC % /100WBC Manual Slide Review Platelet Estimate (NORMAL) RBC Morph Micro Appear (NORMAL) Sodium (135-145) mmol/L Potassium (3.5-5.0) mmol/L Chloride (101-111) mmol/L Carbon Dioxide (21-32) mmol/L Anion Gap (6-13) BUN (6-20) mg/dL Creatinine (0.6-1.2) mg/dL Estimated GFR (MDRD) (>89) Glucose (70-100) mg/dL POC Whole Bld Glucose 111 H 62 L (70 - 100) mg/dL Calcium (8.5-10.3) mg/dL Magnesium (1.7-2.8) mg/dL Total Bilirubin (0.2-1.0) mg/dL AST (10-42) IU/L ALT (10-60) IU/L Alkaline Phosphatase (42-121) IU/L B-Natriuretic Peptide 1106 H (5-100) pg/mL Total Protein (6.7-8.2) g/dL Albumin (3.2-5.5) g/dL Globulin (2.1-4.2) g/dL Albumin/Globulin Ratio (1.0-2.2) 02/09/18 02/09/18 02/08/18 Range/Units 06:10 06:10 20:02 WBC 8.8 (4.8-10.8) x10^3/uL RBC 4.23 L (4.70-6.10) 10^6/uL Hgb 12.1 L (14.0-18.0) g/dL Hct 36.1 L (42.0-52.0) % MCV 85.4 (80.0-94.0) fL MCH 28.6 (27.0-31.0) pg MCHC 33.5 (32.0-36.0) g/dL RDW 21.4 H (12.0-15.0) % Plt Count 209 (130-450) 10^3/uL MPV 8.1 (7.4-11.4) fL Neut # (Auto) 6.8 H (1.5-6.6) 10^3/uL Lymph # (Auto) 1.1 L (1.5-3.5) 10^3/uL [place] # (Auto) 0.8 (0.0-1.0) 10^3/uL Eos # (Auto) 0.1 (0.0-0.7) 10^3/uL Baso # (Auto) 0.1 (0.0-0.1) 10^3/uL Absolute Nucleated RBC 0.01 x10^3/uL Nucleated RBC % 0.1 /100WBC Manual Slide Review Indicated Platelet Estimate NORMAL (130-450,000) (NORMAL) RBC Morph Micro Appear 1+ OVALOCYTES (NORMAL) Sodium 133 L (135-145) mmol/L Potassium 4.2 (3.5-5.0) mmol/L Chloride 89 L (101-111) mmol/L Carbon Dioxide 35 H (21-32) mmol/L Anion Gap 9.0 (6-13) BUN 56 H (6-20) mg/dL Creatinine 2.5 H (0.6-1.2) mg/dL Estimated GFR (MDRD) 30 L (>89) Glucose 67 L (70-100) mg/dL POC Whole Bld Glucose 176 H (70 - 100) mg/dL Calcium 9.0 (8.5-10.3) mg/dL Magnesium 2.6 (1.7-2.8) mg/dL Total Bilirubin 3.8 H (0.2-1.0) mg/dL AST 29 (10-42) IU/L ALT 17 (10-60) IU/L Alkaline Phosphatase 146 H (42-121) IU/L B-Natriuretic Peptide (5-100) pg/mL Total Protein 6.7 (6.7-8.2) g/dL Albumin 3.4 (3.2-5.5) g/dL Globulin 3.3 (2.1-4.2) g/dL Albumin/Globulin Ratio 1.0 (1.0-2.2) 10/06/18 10/06/18 Range/Units 16:08 11:18 WBC (4.8-10.8) x10^3/uL RBC (4.70-6.10) 10^6/uL Hgb (14.0-18.0) g/dL Hct (42.0-52.0) % MCV (80.0-94.0) fL MCH (27.0-31.0) pg MCHC (32.0-36.0) g/dL RDW (12.0-15.0) % Plt Count (130-450) 10^3/uL MPV (7.4-11.4) fL Neut # (Auto) (1.5-6.6) 10^3/uL Lymph # (Auto) (1.5-3.5) 10^3/uL [place] # (Auto) (0.0-1.0) 10^3/uL Eos # (Auto) (0.0-0.7) 10^3/uL Baso # (Auto) (0.0-0.1) 10^3/uL Absolute Nucleated RBC x10^3/uL Nucleated RBC % /100WBC Manual Slide Review Platelet Estimate (NORMAL) RBC Morph Micro Appear (NORMAL) Sodium (135-145) mmol/L Potassium (3.5-5.0) mmol/L Chloride (101-111) mmol/L Carbon Dioxide (21-32) mmol/L Anion Gap (6-13) BUN (6-20) mg/dL Creatinine (0.6-1.2) mg/dL Estimated GFR (MDRD) (>89) Glucose (70-100) mg/dL POC Whole Bld Glucose 94 326 H (70 - 100) mg/dL Calcium (8.5-10.3) mg/dL Magnesium (1.7-2.8) mg/dL Total Bilirubin (0.2-1.0) mg/dL AST (10-42) IU/L ALT (10-60) IU/L Alkaline Phosphatase (42-121) IU/L B-Natriuretic Peptide (5-100) pg/mL Total Protein (6.7-8.2) g/dL Albumin (3.2-5.5) g/dL Globulin (2.1-4.2) g/dL Albumin/Globulin Ratio (1.0-2.2) ABX Reporting Has patient been on IV antibiotics over the past 48 hours?: No Assessment/Plan - Problem List (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 On the patient's most recent echocardiogram from December of this year the patient's ejection fraction was 20-25%, he had a moderate right ventricular enlargement, he had moderately impaired right ventricular systolic function, moderate mitral regurgitation, severely abnormal right heart pressures and a right ventricular systolic pressure of 77. The patient has both right and left-sided heart failure which is why he has severe shortness of breath along with hepatic congestion and severe edema of his abdominal wall as well as his bilateral lower extremities. At this point the patient is NYHA class III and nearly class IV with severe symptoms with just mild activity. The patient is limited to a scooter to get around the home. He can barely walk 5 feet without having to stop because of shortness of breath and fatigue. This is all progressed over the last month and is likely secondary to a CHF exacerbation in spite of being compliant with meds. He has fallen several times now. I have described at length his anatomy and what it means to have bilateral ventricular failure and how his pump is failing in spite of max medical therapy. He fell on 02/07 getting up from bathroom commode. Lost his balance with the walker and landed on left hip and left side. No blow to head. Able to get up. Overall he has improved tremendously with his acute on chronic systolic failure. The main problem right now is I have over diuresed him. His creatinine has bumped up, and his sugar i s too low. I will back off on some of his medications. Plan: s/p IV Bumex 1 mg twice daily but his creatinine abida 02/06 and 02/07. It's the highest it's been today at 2.3 s/p one-time dose of Zaroxolyn. Bumex IV stopped 02/07 and changed to po 02/08 @ 2 mg. I will decrease to 1 mg Give 500 cc NS bolus. Strict I's and O's with a (-)[phone] as of this am Daily weights with admit 80.7 kg and today 74.4 kg 2 L fluid restriction 2 g sodium restriction Continue patient's Coreg but will hold for low BP We will place the patient back on Imdur, Cozaar and spironolactone given his hypertension but he hypotensive this morning. Will give parameters Placed on Nitropaste and that was last given yesterday. I will stop for today. Monitored BNP which was 6057>6238>3016>1779>1106 today. Much better. On 02/06 I spoke with the patient and his about his goals of care and asked him to consider a palliative care consult. He will think about that and about Hospice. On admit, in the presence of the patient's son, the patient agreed with his son to be a full code but stated that he needs to think it over and talk with his . On 02/06, he and his don't want Full code and want DNR. POLST form filled out. He is ok with my order of Home Health RN, bath aid, PT. He is ok with moving forward with Palliative Care consult. Poor prognosis overall. No need for an echocardiogram given the patient just had an echo 2 months ago. Patient will likely need 2-3 days of diuresis by IV diuretic. Doing so much better but health promotion educator needs more time to control DM in view of med change. Home on Friday 02/09 (2) Hypertension Conclusion/Plan: Patient has a history of hypertension and on presentation to the emergency department the patient was severely hypertensive with blood pressure of 157/110. The patient was given Nitropaste in the emergency department with minimal response. The patient was placed on his home medication of carvedilol, Imdur and spironolactone. He was on Nitropaste and we will place him on Bumex 2 mg IV twice daily. The patient's hypertension is likely worsening his pulmonary edema and CHF. It is pertinent that we get it under control. today systolic 98- 118 and I think I have overdiuresed him. I am cutting back on meds. Qualifiers: Hypertension type: essential hypertension Qualified Code(s): I10 - Essential (primary) hypertension (3) Acute renal failure superimposed on stage 3 chronic kidney disease Conclusion/Plan: Patient has a history of chronic kidney disease stage III. On presentation the patient's creatinine is elevated up to 1.9. then 2.0>2.1 today. The patient appears to have acute on chronic renal failure. This appears to be secondary to cardiorenal syndrome as patient is congested and is having poor flow to his kidneys as is evident by the elevated BUN. I explained this to he and his . The patient was treated with IV bumex, held for part of yesterday and resumed po bumex today. We will continue to monitor his creatinine. We will avoid any nephrotoxic agents. Qualifiers: Acute renal failure type: unspecified Qualified Code(s): N17.9 - Acute kidney failure, unspecified; N18.3 - Chronic kidney disease, stage 3 (moderate) (4) Elevated bilirubin Conclusion/Plan: Patient has had chronically elevated bilirubin ranging from 2-5 and on admit his bilirubin was elevated to 6.5 which is the highest that it has ever been. The patient's bilirubin is likely elevated secondary to liver congestion from his severe congestive heart failure with cor pulmonale. The patient has had a recent CT of his abdomen and pelvis which did show ascites but also there was concern for some lesions on his kidney. Given the patient's elevated bilirubin and history of renal lesions we obtained an abdominal ultrasound . In looking at his kidneys, the right one does not have a mass. The left one has a 3 cm cyst. There is trace ascites. He has hepatic hemangiomas. No evidence of cholelithiasis or biliary obstruction. Patient will be treated with IV Bumex and other treatment for CHF and we will continue to monitor his bilirubin. I believe that with the treatment of his CHF his bilirubin will improve. On admit 6.5>5.8>4.0>4.2>3.8 today. (5) Hyponatremia Conclusion/Plan: The patient does have mild hyponatremia with a sodium of 133. The patient appears to have hypovolemic hyponatremia. Patient will be treated with IV Bumex and we will continue to monitor the patient's sodium. 02/05 he is 136. Today 133. (6) Diabetes Conclusion/Plan: The patient has a history of type 2 diabetes and does not insulin-dependent. T he patient uses metformin and glipizide at home. On presentation the patient's blood glucose is well controlled. 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 Glucose was 183 and 214. I increased Lantus to 12 units 02/07 and he has been seen for diabetic instruction. I do not feel that he should be on metformin or sulfonylurea in view of his CKD, but his insurance company placed all insulins on Tier 3 level. For Lantus he will pay >$400 out of pocket. As such I will change lantus to NPH which is much much less expensive. His glucose is in the 60's today so I have overtreated his DM as well. Will change NPH to accommodate that. Plan: Hold patient's metformin and glipizide while he is hospitalized. Do not resume at discharge. Place patient on sliding scale insulin during hospitalization Place patient on diabetic diet Check blood glucose before meals at bedtime Check hemoglobin A1c which is 10.5%. Started Lantus 8 units in the morning and increased to 12. I stopped lantus and change to NPH 6 units SQ bid. Change to 4 units Sq bid. Goal is for him to be 7%-8% in outpatient setting in view of end stage CHF. 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 The patient uses gabapentin at home for his peripheral neuropathy. The patient's gabapentin will be continued while he is hospitalized.The tells us that this is 1 of the main reasons he is more and more immobile. It just is not safe anymore because he cannot feel his feet on the ground and he trips. Combined this with the shortness of breath and the peripheral neuropathy she thinks that is what he has been falling so much. Physical therapy has been ordered and has seen the patient. She thinks he would be a great candidate for home health physical therapy. He also has a four-wheel walker that is not working at home and the brakes caused him to fall even more. So she is asking for a front wheel walker with only 2 wheels. PT is seeing him. Walked >40 feet before DONNELLY got the best of him. Improved from home when he was only able to to 5 feet. Qualifiers: Peripheral neuropathy type: polyneuropathy associated with underlying disease Qualified Code(s): G63 - Polyneuropathy in diseases classified elsewhere
[2018-02-09] MEDS: CARVEDILOL 3.125 MG TABLET PO SCH ×2 (11:00→22:12)
[2018-02-09 16:31] LABS: CREATININE 2.5 mg/dL (0.6-1.2)
[2018-02-10] MEDS: SODIUM CHLORIDE FLUSH 0.9% 10 ML SYRINGE IVP SCH ×3 (01:56→17:06)
[2018-02-10] MEDS: GABAPENTIN 300 MG CAPSULE PO SCH ×3 (05:41→20:51)
[2018-02-10 06:15] LABS: BASOPHILS # (AUTO) 0.1 10^3/uL (0.0-0.1); EOSINOPHILS # (AUTO) 0.2 10^3/uL (0.0-0.7); HGB - HEMOGLOBIN 12.3 g/dL (14.0-18.0); LYMPHOCYTES % (AUTO) 12.1 %; MEAN CORPUSCULAR HEMOGLOBIN 27.7 pg (27.0-31.0); MEAN CORPUSCULAR HGB CONC 32.3 g/dL (32.0-36.0); MEAN CORPUSCULAR VOLUME 85.7 fL (80.0-94.0); MEAN PLATELET VOLUME 8.4 fL (7.4-11.4); MONOCYTES # (AUTO) 0.8 10^3/uL (0.0-1.0); MONOCYTES % (AUTO) 9.6 %; NEUTROPHILS # (AUTO) 6.2 10^3/uL (1.5-6.6); NEUTROPHILS % (AUTO) 75.3 %; PLT - PLATELET COUNT 219 10^3/uL (130-450); RED BLOOD COUNT 4.45 10^6/uL (4.70-6.10); RED CELL DISTRIBUTION WIDTH 21.5 % (12.0-15.0); WHITE BLOOD COUNT 8.3 x10^3/uL (4.8-10.8)
[2018-02-10 06:25] LABS: ALBUMIN 3.3 g/dL (3.2-5.5); BILIRUBIN,TOTAL 3.5 mg/dL (0.2-1.0); CALCIUM 8.9 mg/dL (8.5-10.3); CREATININE 2.6 mg/dL (0.6-1.2); MAGNESIUM 2.5 mg/dL (1.7-2.8); TOTAL PROTEIN 6.7 g/dL (6.7-8.2)
[2018-02-10] MEDS: INSULIN NPH HUMAN 100 UNIT/1 ML 10 ML MDV SUBQ SCH ×2 (06:36→17:06)
[2018-02-10] MEDS ORDERED: SODIUM CHLORIDE 0.9% 500 ML IV ONE ×3 (06:58→12:37)
[2018-02-10 06:59] LABS: RBC MORPHOLOGY (MULTIPLE) 2+ ANISOCYTOSIS (NORMAL)
[2018-02-10] MEDS: ASPIRIN EC 81 MG TABLET PO SCH (08:21)
[2018-02-10] MEDS: METHYLPHENIDATE 10 MG TABLET PO SCH ×2 (08:21→14:55)
[2018-02-10] MEDS: ISOSORBIDE MONONITRATE ER 30 MG TABLET PO SCH (08:22)
[2018-02-10] MEDS: BUMETANIDE 1 MG TABLET PO SCH (08:22)
[2018-02-10] MEDS: SPIRONOLACTONE 25 MG TABLET PO SCH ×2 (08:22→20:50)
[2018-02-10] MEDS: POLYETHYLENE GLYCOL 3350 17 GM PACKET PO SCH (08:22)
[2018-02-10] MEDS: ENOXAPARIN 30 MG/0.3 ML SYRINGE SUBQ SCH (08:23)
[2018-02-10] MEDS: LOSARTAN 50 MG TABLET PO SCH (08:23)
[2018-02-10] MEDS: FAMOTIDINE 20 MG TABLET PO SCH (08:23)
[2018-02-10] MEDS: CARVEDILOL 3.125 MG TABLET PO SCH ×2 (08:24→20:49)
[2018-02-10] MEDS: INSULIN ASPART 300 UNIT/3 ML PEN SUBQ SCH ×4 (08:56→20:49)
[2018-02-10] MEDS: SODIUM CHLORIDE FLUSH 0.9% 10 ML SYRINGE IVP PRN (12:02)
[2018-02-10] MEDS: POTASSIUM CHLORIDE 20 MEQ TABLET PO SCH (12:30)
--- NOTE | 2018-02-10 13:25 | XRAY Report ---
Reason: sudden nausea, abd pain , emesis Procedure Date: 02/10/2018 Accession Number: [id number] / [id number] Procedure: XR - Abdomen 1 View X-Ray CPT Code: 08200 FULL RESULT: EXAM: ABDOMEN RADIOGRAPHY EXAM DATE: 02/10/2018 01:11 PM. CLINICAL HISTORY: Sudden nausea, abd pain , emesis. 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 TECHNIQUE: Supine: 1 view (2 images). FINDINGS: Bowel Gas Pattern: Nonspecific bowel gas pattern. Gas and stool in nondilated colon. Moderate stool in the ascending colon. No rectal fecal impaction. No apparent small bowel dilatation. Other: No gross organomegaly. Cardiomegaly and AICD in place. IMPRESSION: 1. Nonobstructive bowel gas pattern. No acute findings identified. 2. Grossly stable cardiomegaly. [facility]
--- NOTE | 2018-02-10 14:28 | PROVIDER PROGRESS NOTE ---
Subjective - Prog Note Date Prog Note Date: 02/10/18 Prog Note Time: 14:41 - Subjective Pt reports feeling: Improved Subjective: He is so much better from shortness of breath, orthopnea, dyspnea on exertion. He laments how much muscle mass and how much weight he lost. Today, he started having generalized abdominal aching. It was not severe. He just felt very nauseated and then he had sudden emesis this morning. No fever, no chills. His abdominal aching is gone away after emesis. Even with the fluid boluses yesterday, my cutting back on his diuretic therapy, he has lost more weight today and his creatinine bumped from 2.3-2.6. Current Medications - Current Medications Current Medications: Active Medications Acetaminophen (Tylenol) 650 mg PO Q4HR PRN PRN Reason: Pain 1 to 4 Aspirin (Ecotrin) 81 mg PO DAILY [facility] Last Admin: 02/10/18 08:21 Dose: 81 mg Carboxymethylcellulose (Refresh 1% Ophth Drops) 1 drops EACHEYE PRN PRN PRN Reason: Dry Eye Last Admin: 02/06/18 10:28 Dose: 1 drops Carvedilol (Coreg) 6.25 mg PO BID [facility] Last Admin: 02/10/18 08:24 Dose: Not Given Enoxaparin Sodium (Lovenox) 30 mg SUBQ DAILY [facility] Last Admin: 02/10/18 08:23 Dose: 30 mg Famotidine (Pepcid) 20 mg PO DAILY [facility] Last Admin: 02/10/18 08:23 Dose: 20 mg Gabapentin (Neurontin) 300 mg PO TID [facility] Last Admin: 02/10/18 05:41 Dose: 300 mg Insulin Aspart (Novolog) 2 - 10 unit SUBQ 0800,1200,1700,2100 [facility]; Protocol Last Admin: 02/10/18 13:41 Dose: 6 unit Insulin Human NPH (Novolin N) 4 unit SUBQ BIDAC [facility] Last Admin: 02/10/18 06:36 Dose: 4 unit Isosorbide Mononitrate (Imdur) 30 mg PO DAILY [facility] Last Admin: 02/10/18 08:22 Dose: 30 mg Losartan Potassium (Cozaar) 50 mg PO DAILY [facility] Methylphenidate HCl (Ritalin) 20 mg PO 0800,1400 [facility] Last Admin: 02/10/18 08:21 Dose: 20 mg Ondansetron HCl (Zofran Inj) 4 mg IVP Q6HR PRN PRN Reason: Nausea / Vomiting Last Admin: 02/10/18 12:02 Dose: 4 mg Oxycodone HCl (Roxicodone) 5 mg PO Q4HR PRN PRN Reason: Pain 5 to 7 Polyethylene Glycol (Miralax) 17 gm PO DAILY [facility] Last Admin: 02/10/18 08:22 Dose: 17 gm Potassium Chlor[facility] (K-[facility]) [facility] [place] Admin: 02/10/18 12:30 Dose: Not Given Prochlorperazine Edisylate (Compazine Inj) 10 mg IVP Q6HR PRN PRN Reason: Nausea / Vomiting Promethazine HCl (Phenergan Inj) 25 mg IM Q6HR PRN PRN Reason: Nausea / Vomiting Sodium Chloride (Normal Saline Flush 0.9%) 10 ml IVP PRN PRN PRN Reason: NEEDED PER PROVIDER ORDERS Last Admin: 02/10/18 12:02 Dose: 10 ml Sodium Chloride (Normal Saline Flush 0.9%) 10 ml IVP 0100,0900,1700 [facility] Last Admin: 02/10/18 08:23 Dose: 5 ml Spironolactone (Aldactone) 25 mg PO BID [facility] Last Admin: 02/10/18 08:22 Dose: 25 mg Gabapentin 300 mg PO TID 12/09/17 Glipizide 5 mg PO DAILYWM 12/09/17 Methylphenidate HCl 20 mg PO 0800,1400 12/09/17 Bumetanide 2 mg PO DAILY 02/06/18 Carvedilol 6.25 mg PO BID 02/06/18 Metformin HCl 500 tab PO BIDWM 02/06/18 Spironolactone [Aldactone] 25 mg PO DAILY 02/06/18 Objective - Vital Signs/Intake & Output Reviewed Vital Signs: Yes Vital Signs: Vital Signs x48h Temp Pulse Resp BP BP Pulse Ox 02/10/18 13:16 98/64 02/10/18 12:44 65 18 83/57 L 99 02/10/18 12:41 58 L 94/50 L 96 02/10/18 12:39 65 74/43 L 71/37 L 02/10/18 07:38 36.4 C L 58 L 16 119/57 L 98 Intake & Output: Intake & Output 02/07/18 02/08/18 02/09/18 02/10/18 23:59 23:59 23:59 23:59 Intake Total 9958 539 5495 510 Output Total 4950 2550 3560 1710 Balance -3610 -1750 -1810 -1200 - Objective General Appearance: positive: No acute distress, Alert, Other (Tall lanky very thin elderly gentleman. Able to walk a few steps from the bedside commode to the bed. But once he sits down he needs the nurses to help him bring his legs up and lay back down) Eyes Bilateral: positive: PERRL, EOMI ENT: positive: Pharynx nml Neck: positive: No JVD. negative: Stiff neck, Carotid bruit Respiratory: positive: Chest non-tender, No respiratory distress. negative: Wheezes, Rales, Rhonchi Cardiovascular: positive: Regular rate & rhythm, Systolic murmur. negative: Gallop/S4, Friction rub Abdomen: positive: Non-tender, No organomegaly, Nml bowel sounds, No distention Skin: positive: Warm, Dry Extremities: positive: Full ROM, No pedal edema Neurologic/Psychiatric: positive: Oriented x3, CN's nml (2-12), Motor nml, Weakness - Lab Results Fish Bones: 02/10/18 05:53 02/10/18 05:53 Other Labs: Lab Results x24hrs 02/10/18 02/10/18 02/10/18 Range/Units 11:16 07:25 05:53 WBC (4.8-10.8) x10^3/uL RBC (4.70-6.10) 10^6/uL Hgb (14.0-18.0) g/dL Hct (42.0-52.0) % MCV (80.0-94.0) fL MCH (27.0-31.0) pg MCHC (32.0-36.0) g/dL RDW (12.0-15.0) % Plt Count (130-450) 10^3/uL MPV (7.4-11.4) fL Neut # (Auto) (1.5-6.6) 10^3/uL Lymph # (Auto) (1.5-3.5) 10^3/uL Placer # (Auto) (0.0-1.0) 10^3/uL Eos # (Auto) (0.0-0.7) 10^3/uL Baso # (Auto) (0.0-0.1) 10^3/uL Absolute Nucleated RBC x10^3/uL Nucleated RBC % /100WBC Manual Slide Review RBC Morph Micro Appear (NORMAL) Sodium (135-145) mmol/L Potassium (3.5-5.0) mmol/L Chloride (101-111) mmol/L Carbon Dioxide (21-32) mmol/L Anion Gap (6-13) BUN (6-20) mg/dL Creatinine (0.6-1.2) mg/dL Estimated GFR (MDRD) (>89) Glucose (70-100) mg/dL POC Whole Bld Glucose 242 H 196 H (70 - 100) mg/dL Calcium (8.5-10.3) mg/dL Magnesium (1.7-2.8) mg/dL Total Bilirubin (0.2-1.0) mg/dL AST (10-42) IU/L ALT (10-60) IU/L Alkaline Phosphatase (42-121) IU/L B-Natriuretic Peptide 1052 H (5-100) pg/mL Total Protein (6.7-8.2) g/dL Albumin (3.2-5.5) g/dL Globulin (2.1-4.2) g/dL Albumin/Globulin Ratio (1.0-2.2) 02/10/18 02/10/18 02/09/18 Range/Units 05:53 05:53 20:05 WBC 8.3 (4.8-10.8) x10^3/uL RBC 4.45 L (4.70-6.10) 10^6/uL Hgb 12.3 L (14.0-18.0) g/dL Hct 38.1 L (42.0-52.0) % MCV 85.7 (80.0-94.0) fL MCH 27.7 (27.0-31.0) pg MCHC 32.3 (32.0-36.0) g/dL RDW 21.5 H (12.0-15.0) % Plt Count 219 (130-450) 10^3/uL MPV 8.4 (7.4-11.4) fL Neut # (Auto) 6.2 (1.5-6.6) 10^3/uL Lymph # (Auto) 1.0 L (1.5-3.5) 10^3/uL Placer # (Auto) 0.8 (0.0-1.0) 10^3/uL Eos # (Auto) 0.2 (0.0-0.7) 10^3/uL Baso # (Auto) 0.1 (0.0-0.1) 10^3/uL Absolute Nucleated RBC 0.00 x10^3/uL Nucleated RBC % 0.0 /100WBC Manual Slide Review Indicated RBC Morph Micro Appear 2+ ANISOCYTOSIS (NORMAL) Sodium 128 L (135-145) mmol/L Potassium 4.9 (3.5-5.0) mmol/L Chloride 88 L (101-111) mmol/L Carbon Dioxide 32 (21-32) mmol/L Anion Gap 8.0 (6-13) BUN 61 H (6-20) mg/dL Creatinine 2.6 H (0.6-1.2) mg/dL Estimated GFR (MDRD) 28 L (>89) Glucose 204 H (70-100) mg/dL POC Whole Bld Glucose 132 H (70 - 100) mg/dL Calcium 8.9 (8.5-10.3) mg/dL Magnesium 2.5 (1.7-2.8) mg/dL Total Bilirubin 3.5 H (0.2-1.0) mg/dL AST 30 (10-42) IU/L ALT 20 (10-60) IU/L Alkaline Phosphatase 149 H (42-121) IU/L B-Natriuretic Peptide (5-100) pg/mL Total Protein 6.7 (6.7-8.2) g/dL Albumin 3.3 (3.2-5.5) g/dL Globulin 3.4 (2.1-4.2) g/dL Albumin/Globulin Ratio 1.0 (1.0-2.2) 02/09/18 02/09/18 Range/Units 16:02 16:00 WBC (4.8-10.8) x10^3/uL RBC (4.70-6.10) 10^6/uL Hgb (14.0-18.0) g/dL Hct (42.0-52.0) % MCV (80.0-94.0) fL MCH (27.0-31.0) pg MCHC (32.0-36.0) g/dL RDW (12.0-15.0) % Plt Count (130-450) 10^3/uL MPV (7.4-11.4) fL Neut # (Auto) (1.5-6.6) 10^3/uL Lymph # (Auto) (1.5-3.5) 10^3/uL Placer # (Auto) (0.0-1.0) 10^3/uL Eos # (Auto) (0.0-0.7) 10^3/uL Baso # (Auto) (0.0-0.1) 10^3/uL Absolute Nucleated RBC x10^3/uL Nucleated RBC % /100WBC Manual Slide Review RBC Morph Micro Appear (NORMAL) Sodium 132 L (135-145) mmol/L Potassium 5.4 H (3.5-5.0) mmol/L Chloride 90 L (101-111) mmol/L Carbon Dioxide 33 H (21-32) mmol/L Anion Gap 9.0 (6-13) BUN 57 H (6-20) mg/dL Creatinine 2.5 H (0.6-1.2) mg/dL Estimated GFR (MDRD) 30 L (>89) Glucose 235 H (70-100) mg/dL POC Whole Bld Glucose 240 H (70 - 100) mg/dL Calcium 9.0 (8.5-10.3) mg/dL Magnesium (1.7-2.8) mg/dL Total Bilirubin (0.2-1.0) mg/dL AST (10-42) IU/L ALT (10-60) IU/L Alkaline Phosphatase (42-121) IU/L B-Natriuretic Peptide (5-100) pg/mL Total Protein (6.7-8.2) g/dL Albumin (3.2-5.5) g/dL Globulin (2.1-4.2) g/dL Albumin/Globulin Ratio (1.0-2.2) ABX Reporting Has patient been on IV antibiotics over the past 48 hours?: No Assessment/Plan - Problem List (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 On the patient's most recent echocardiogram from December of this year the patient's ejection fraction was 20-25%, he had a moderate right ventricular enlargement, he had moderately impaired right ventricular systolic function, moderate mitral regurgitation, severely abnormal right heart pressures and a right ventricular systolic pressure of 77. The patient has both right and left-sided heart failure which is why he has severe shortness of breath along with hepatic congestion and severe edema of his abdominal wall as well as his bilateral lower extremities. At this point the patient is NYHA class III and nearly class IV with severe symptoms with just mild activity. The patient is limited to a scooter to get around the home. He can barely walk 5 feet without having to stop because of shortness of breath and fatigue. This is all progressed over the last month and is likely secondary to a CHF exacerbation in spite of being compliant with meds. He has fallen several times now. I have described at length his anatomy and what it means to have bilateral ventricular failure and how his pump is failing in spite of max medical therapy. He fell on 02/07 getting up from bathroom commode. Lost his balance with the walker and landed on left hip and left side. No blow to head. Able to get up. Overall he has improved tremendously with his acute on chronic systolic failure. The main problem right now is I have over diuresed him. His creatinine has bumped up, and his sugar is too low. I will back off on some of his medications. Even with that his creatinine continues to rise to 2.6 Plan: s/p IV Bumex 1 mg twice daily but his creatinine abida 02/06 and 02/07. It's the highest it's been today at 2.6 s/p one-time dose of Zaroxolyn. Bumex IV stopped 02/07 and changed to po 02/08 @ 2 mg. I decreased to 1 mg yesterday and will stop it today. Given 500 cc NS bolus yesterday and will be given another bolus today. Strict I's and O's with a (-)10,109 as of this am Daily weights with admit 80.7 kg and today 73 kg 2 L fluid restriction 2 g sodium restriction Continue patient's Coreg but will hold for low BP We will place the patient back on Imdur, Cozaar and spironolactone given his hypertension but he hypotensive 02/09 and 02/10. Will give parameters Placed on Nitropaste and that was last given 02/08 and stopped 02/09. Monitored BNP which was 6057>6238>3016>1779>1106>1052 today. Much better. On 02/06 I spoke with the patient and his about his goals of care and asked him to consider a palliative care consult. He will think about that and about Hospice. On admit, in the presence of the patient's son, the patient agreed with his son to be a full code but stated that he needs to think it over and talk with his . On 02/06, he and his don't want Full code and want DNR. POLST form filled out. He is ok with my order of Home Health RN, bath aid, PT. He is ok with moving forward with Palliative Care consult and was seen today by Aimee Fernandez. He asked for a hospital bed and that will be discussed w case management. Poor prognosis overall. No need for an echocardiogram given the patient just had an echo 2 months ago. 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 Home was to be today, Friday 02/09, but because hypotensive and creat up, will keep until stable. (2) Hypertension and now hypotension Conclusion/Plan: Patient has a history of hypertension and on presentation to the emergency department the patient was severely hypertensive with blood pressure of 157/110. The patient was given Nitropaste in the emergency department with minimal response. The patient was placed on his home medication of carvedilol, Imdur and spironolactone. He was on Nitropaste and we placed him on Bumex 2 mg IV twice daily. The patient's hypertension is likely worsening his pulmonary edema and CHF. It is pertinent that we get it under control. Systolic started dropping on 02/08 and today is 80's systolic in spite of cutting diurectics and giving fluid bolus. I think I have overdiuresed him. I have stopped bumex. Cut losartan from 100 mg to 50 mg. continue coreg. continue spironolactone. continue imdur for now. Qualifiers: Hypertension type: essential hypertension Qualified Code(s): I10 - Essential (primary) hypertension (3) Acute renal failure superimposed on stage 3 chronic kidney disease Conclusion/Plan: Patient has a history of chronic kidney disease stage III. On presentation the patient's creatinine is elevated up to 1.9. then 2.0>2.1>2.6 today. The patient appears to have acute on chronic renal failure. This appears to be secondary to cardiorenal syndrome as patient is congested and is having poor flow to his kidneys as is evident by the elevated BUN. I explained this to he and his . The patient was treated with IV bumex, held for part of 02/08 and resumed po bumex 02/09 at half his ususal dose. Today will stop bumex altogether. We will continue to monitor his creatinine. We will avoid any nephrotoxic agents. Qualifiers: Acute renal failure type: unspecified Qualified Code(s): N17.9 - Acute kidney failure, unspecified; N18.3 - Chronic kidney disease, stage 3 (moderate) (4) Elevated bilirubin Conclusion/Plan: Today with nausea and vomitting and mild generalized abd pain. KUB is negative. Patient has had chronically elevated bilirubin ranging from 2-5 and on admit his bilirubin was elevated to 6.5 which is the highest that it has ever been. The patient's bilirubin is likely elevated secondary to liver congestion from his severe congestive heart failure with cor pulmonale. The patient has had a recent CT of his abdomen and pelvis which did show ascites but also there was concern for some lesions on his kidney. Given the patient's elevated bilirubin and history of renal lesions we obtained an abdominal ultrasound . In looking at his kidneys, the right one does not have a mass. The left one has a 3 cm cyst. There is trace ascites. He has hepatic hemangiomas. No evidence of cholelithiasis or biliary obstruction. Patient will be treated with IV Bumex and other treatment for CHF and we will continue to monitor his bilirubin. I believe that with the treatment of his CHF his bilirubin will improve. On admit 6.5>5.8>4.0>4.2>3.8>3.5 today. (5) Hyponatremia Conclusion/Plan: The patient does have mild hyponatremia with a sodium of 133. The patient appears to have hypovolemic hyponatremia. Patient will be treated with IV Bumex and we will continue to monitor the patient's sodium. 02/05 he is 136. Today 128 which goes with his overdiuresis. (6) Diabetes Conclusion/Plan: The patient has a history of type 2 diabetes and does not insulin-dependent. The patient uses metformin and glipizide at home. On presentation the patient's blood glucose is well controlled. 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 Glucose was 183 and 214. I increased Lantus to 12 units 02/07 and he has been seen for diabetic instruction. I do not feel that he should be on metformin or sulfonylurea in view of his CKD, but his insurance company placed all insulins on Tier 3 level. For Lantus he will pay >$400 out of pocket. As such I will change lantus to NPH which is much much less expensive. His glucose is in the 60's on the morning of 02/09 so I have overtreated his DM as well. Will change NPH to accommodate that. Glucose was 240 yesterday before dinner yesterday, 132 before bedtime last night, 196 this morning and 242 before lunch today. Plan: Hold patient's metformin and glipizide while he is hospitalized. Do not resume at discharge. Place patient on sliding scale insulin during hospitalization Place patient on diabetic diet Check blood glucose before meals at bedtime Check hemoglobin A1c which is 10.5%. Started Lantus 8 units in the morning and increased to 12. I stopped lantus and change to NPH 6 units SQ bid. Continue 4 units Sq bid. Goal is for him to be 7%-8% in outpatient setting in view of end stage CHF. 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 The patient uses gabapentin at home for his peripheral neuropathy. The patient's gabapentin will be continued while he is hospitalized.The t ells us that this is 1 of the main reasons he is more and more immobile. It just is not safe anymore because he cannot feel his feet on the ground and he trips. Combined this with the shortness of breath and the peripheral neuropathy she thinks that is what he has been falling so much. Physical therapy has been ordered and has seen the patient. She thinks he would be a great candidate for home health physical therapy. He also has a four-wheel walker that is not working at home and the brakes caused him to fall even more. So she is asking for a front wheel walker with only 2 wheels. PT is seeing him. Walked >40 feet before DONNELLY got the best of him. Improved from home when he was only able to to 5 feet. Qualifiers: Peripheral neuropathy type: polyneuropathy associated with underlying disease Qualified Code(s): G63 - Polyneuropathy in diseases classified elsewhere
[2018-02-10 17:44] LABS: CALCIUM 8.6 mg/dL (8.5-10.3); CREATININE 2.7 mg/dL (0.6-1.2)
--- NOTE | 2018-02-10 19:45 | CONSULTATION NOTE ---
Palliative Care Consultation - Referral Referring Provider: Dr. 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 He has had progressive severe shortness of breath, has had multiple falls prior to admit, increasing hepatic congestion, severe edema, and severe orthopnea. He does present is quite fragile, failure to thrive, has had decreased functional status at home, presents with worsening acute renal failure superimposed on stage III chronic kidney disease, underlying peripheral neuropathy, diabetes, known coronary artery disease with a history of V. fib arrest in 2009 currently with an AICD in place, amyloid cardiomyopathy, persistent atrial fib, hypertension, type 2 diabetes now started on insulin, osteoarthritis BPH and chronic hearing loss. Patient has continued to improve with decreased weight from 80.7 kg now to 73, is somewhat over diuresed today, but doing much better overall. Though is does present with significant weakness. His goals are to return home, to see how much functional status he can regained, he had been scooter dependent and getting around has been somewhat independent, Overall has noticed ongoing changes in decline in his overall health. He has a very supportive family, his Germania, who has recently been working, is planning to retire and attend to managing his current healthcare issues. They are pursing AYDEN support. He will be on a fluid restriction, newly on insulin, and with diabetic and cardiac restrictions on his diet. She feels it will take more concentration and supervision to manage. They are also going to be supported by home health nursing, PT, and palliative care being introduced to help with patient's overall care. Patient does present with poor prognosis overall but is hoping to have some quality of time as well as quantity of time on discharge. Medical/Surgical History - Past Medical History Cardiovascular: reports: Congestive heart failure, Hypertension, Coronary artery disease, Deep vein thrombosis, [place], Atrial fibrillation Respiratory: reports: COPD, Shortness of breath Neuro: Peripheral neuropathy Endocrine/Autoimmune: reports: Type 2 diabetes GI: reports: None : reports: Benign prostate hypertrophy, Renal insuffiency HEENT: reports: Chronic hearing loss Psych: reports: None Musculoskeletal: reports: Osteoarthritis Derm: reports: None MRSA Hx?: No - Past Surgical History Ortho: reports: Knee replacement Cardiovascular: reports: Pacemaker, AICD (place after cardiac arrest in 2010) Social History - Living Situation Living arrangement: At home Living Situation: With spouse/s.o. Support System: Has a very large and extended family, has great marco antonio. Lives in a manufactured home with his , are applying for ayden. Are looking at ways to be able to ease the transition home, and things that might be of support to both his physical and emotional care. His family is very much involved and supporting he and his Family History - Family History Family History: Mother: , Cancer, Sister: Alive and Well, Brother: Alive and Well Medications/Allergies - Medications Active Medication List: Active Medications Acetaminophen (Tylenol) 650 mg PO Q4HR PRN PRN Reason: Pain 1 to 4 Aspirin (Ecotrin) 81 mg PO DAILY [facility] Last Admin: 02/10/18 08:21 Dose: 81 mg Carboxymethylcellulose (Refresh 1% Ophth Drops) 1 drops EACHEYE PRN PRN PRN Reason: Dry Eye Last Admin: 02/06/18 10:28 Dose: 1 drops Carvedilol (Coreg) 6.25 mg PO BID [facility] Last Admin: 02/10/18 08:24 Dose: Not Given Enoxaparin Sodium (Lovenox) 30 mg SUBQ DAILY [facility] Last Admin: 02/10/18 08:23 Dose: 30 mg Famotidine (Pepcid) 20 mg PO DAILY [facility] Last Admin: 02/10/18 08:23 Dose: 20 mg Gabapentin (Neurontin) 300 mg PO TID [facility] Last Admin: 02/10/18 14:55 Dose: 300 mg Insulin Aspart (Novolog) 2 - 10 unit SUBQ 0800,1200,1700,2100 [facility]; Protocol Last Admin: 02/10/18 17:06 Dose: 4 unit Insulin Human NPH (Novolin N) 4 unit SUBQ BIDWM [facility] Last Admin: 02/10/18 17:06 Dose: 4 unit Isosorbide Mononitrate (Imdur) 30 mg PO DAILY [facility] Last Admin: 02/10/18 08:22 Dose: 30 mg Losartan Potassium (Cozaar) 50 mg PO DAILY [facility] Methylphenidate HCl (Ritalin) 20 mg PO 0800,1400 [facility] Last Admin: 02/10/18 14:55 Dose: 20 mg Ondansetron HCl (Zofran Inj) 4 mg IVP Q6HR PRN PRN Reason: Nausea / Vomiting Last Admin: 02/10/18 12:02 Dose: 4 mg Oxycodone HCl (Roxicodone) 5 mg PO Q4HR PRN PRN Reason: Pain 5 to 7 Polyethylene Glycol (Miralax) 17 gm PO DAILY [facility] Last Admin: 02/10/18 08:22 Dose: 17 gm Prochlorperazine Edisylate (Compazine Inj) 10 mg IVP Q6HR PRN PRN Reason: Nausea / Vomiting Promethazine HCl (Phenergan Inj) 25 mg IM Q6HR PRN PRN Reason: Nausea / Vomiting Sodium Chloride (Normal Saline Flush 0.9%) 10 ml IVP PRN PRN PRN Reason: NEEDED PER PROVIDER ORDERS Last Admin: 02/10/18 12:02 Dose: 10 ml Sodium Chloride (Normal Saline Flush 0.9%) 10 ml IVP 0100,0900,1700 [facility] Last Admin: 02/10/18 17:06 Dose: 10 ml Spironolactone (Aldactone) 25 mg PO BID [facility] Last Admin: 02/10/18 08:22 Dose: 25 mg Gabapentin 300 mg PO TID 12/09/17 Glipizide 5 mg PO DAILYWM 12/09/17 Methylphenidate HCl 20 mg PO 0800,1400 12/09/17 Bumetanide 2 mg PO DAILY 02/06/18 Carvedilol 6.25 mg PO BID 02/06/18 Metformin HCl 500 tab PO BIDWM 02/06/18 Spironolactone [Aldactone] 25 mg PO DAILY 02/06/18 - Allergies Allergies/Adverse Reactions: Allergies Allergy/AdvReac Type Severity Reaction Status Date / Time Penicillins Allergy Severe Hives Verified 02/05/18 21:47 propoxyphene napsylate * AdvReac Severe pt reports Verified 02/05/18 21:47 [From [facility]] cardiac arrest Review of Systems - Constitutional Constitutional: reports: Fatigue, Weakness, Poor appetite, Weight loss (fluid we ight loss; but presents with temporal and upper/lower extremity wasting). denies: Fever - Ears, Nose & Throat Ears, Nose & Throat: reports: Hearing loss, Hearing aids, Dry mouth - Cardiovascular Cardiovascular: reports: Exertional dyspnea, Decr. exercise tolerance, Orthopnea. denies: Edema - Respiratory Respiratory: reports: Orthopnea, SOB at rest, SOB with exertion. denies: Cough - Gastrointestinal Gastrointestinal: reports: Abdominal distention, Nausea, Vomiting (episode this am), Early satiety - Genitourinary Genitourinary: reports: Frequency, Urgency - Musculoskeletal Musculoskeletal: reports: Muscle aches, Stiffness, Muscle weakness, Assistive devices (using walker/scooter) - Integumentary Integumentary: reports: Dryness - Neurological Neurological: reports: General weakness - Psychiatric Psychiatric: reports: Anxiety - Endocrine Endocrine: reports: Diabetes type 2 (new insulin) - Hematologic/Lymphatic Hematologic/Lymphatic: reports: Anemia (hgb 12.5) - All Other Systems All Other Systems: reports: Reviewed and negative Physical Exam - Vital Signs Vital Signs: Vital Signs x48h Temp Pulse Resp BP BP Pulse Ox 02/10/18 16:15 85/46 L 02/10/18 15:40 62 83/44 L 02/10/18 15:38 36.4 C L 67 20 78/44 L 97 02/10/18 13:16 98/64 02/10/18 12:44 65 18 83/57 L 99 02/10/18 12:41 58 L 94/50 L 96 02/10/18 12:39 65 74/43 L 71/37 L - Physical Exam General Appearance: positive: Mild distress Eyes Bilateral: positive: Normal inspection ENT: positive: No signs of dehydration Neck: positive: No JVD, Trachea midline Cardiovascular: positive: Regular rate & rhythm Respiratory: positive: No respiratory distress Abdomen: positive: Soft Skin: positive: Dryness Extremities: positive: No pedal edema Neurologic/Psychiatric: positive: Oriented x3, Mood/affect nml, Weakness Palliative Care - POLST Patient has POLST: Yes POLST Status: DNR, Selective Treatment Pain: Pain unchanged, Location (LE peripheral neuropathy) Tiredness/Fatigue: Moderate (4-6) Drowsiness/Sedation: Moderate (4-6) Nausea: Moderate (4-6), With vomiting (today) Depression: None Anxiety: Mild (1-3) Results - Lab Results Fish Bones: 02/10/18 05:53 02/10/18 17:20 Lab and Imaging Results: Lab Results x24hrs 02/10/18 02/10/18 02/10/18 Range/Units 17:20 16:40 11:16 WBC (4.8-10.8) x10^3/uL RBC (4.70-6.10) 10^6/uL Hgb (14.0-18.0) g/dL Hct (42.0-52.0) % MCV (80.0-94.0) fL MCH (27.0-31.0) pg MCHC (32.0-36.0) g/dL RDW (12.0-15.0) % Plt Count (130-450) 10^3/uL MPV (7.4-11.4) fL Neut # (Auto) (1.5-6.6) 10^3/uL Lymph # (Auto) (1.5-3.5) 10^3/uL Cross # (Auto) (0.0-1.0) 10^3/uL Eos # (Auto) (0.0-0.7) 10^3/uL Baso # (Auto) (0.0-0.1) 10^3/uL Absolute Nucleated RBC x10^3/uL Nucleated RBC % /100WBC Manual Slide Review RBC Morph Micro Appear (NORMAL) Sodium 130 L (135-145) mmol/L Potassium 5.0 (3.5-5.0) mmol/L Chloride 89 L (101-111) mmol/L Carbon Dioxide 30 (21-32) mmol/L Anion Gap 11.0 (6-13) BUN 63 H (6-20) mg/dL Creatinine 2.7 H (0.6-1.2) mg/dL Estimated GFR (MDRD) 27 L (>89) Glucose 193 H (70-100) mg/dL POC Whole Bld Glucose 190 H 242 H (70 - 100) mg/dL Calcium 8.6 (8.5-10.3) mg/dL Magnesium (1.7-2.8) mg/dL Total Bilirubin (0.2-1.0) mg/dL AST (10-42) IU/L ALT (10-60) IU/L Alkaline Phosphatase (42-121) IU/L B-Natriuretic Peptide (5-100) pg/mL Total Protein (6.7-8.2) g/dL Albumin (3.2-5.5) g/dL Globulin (2.1-4.2) g/dL Albumin/Globulin Ratio (1.0-2.2) 02/10/18 02/10/18 02/10/18 Range/Units 07:25 05:53 05:53 WBC (4.8-10.8) x10^3/uL RBC (4.70-6.10) 10^6/uL Hgb (14.0-18.0) g/dL Hct (42.0-52.0) % MCV (80.0-94.0) fL MCH (27.0-31.0) pg MCHC (32.0-36.0) g/dL RDW (12.0-15.0) % Plt Count (130-450) 10^3/uL MPV (7.4-11.4) fL Neut # (Auto) (1.5-6.6) 10^3/uL Lymph # (Auto) (1.5-3.5) 10^3/uL Cross # (Auto) (0.0-1.0) 10^3/uL Eos # (Auto) (0.0-0.7) 10^3/uL Baso # (Auto) (0.0-0.1) 10^3/uL Absolute Nucleated RBC x10^3/uL Nucleated RBC % /100WBC Manual Slide Review RBC Morph Micro Appear (NORMAL) Sodium 128 L (135-145) mmol/L Potassium 4.9 (3.5-5.0) mmol/L Chloride 88 L (101-111) mmol/L Carbon Dioxide 32 (21-32) mmol/L Anion Gap 8.0 (6-13) BUN 61 H (6-20) mg/dL Creatinine 2.6 H (0.6-1.2) mg/dL Estimated GFR (MDRD) 28 L (>89) Glucose 204 H (70-100) mg/dL POC Whole Bld Glucose 196 H (70 - 100) mg/dL Calcium 8.9 (8.5-10.3) mg/dL Magnesium 2.5 (1.7-2.8) mg/dL Total Bilirubin 3.5 H (0.2-1.0) mg/dL AST 30 (10-42) IU/L ALT 20 (10-60) IU/L Alkaline Phosphatase 149 H (42-121) IU/L B-Natriuretic Peptide 1052 H (5-100) pg/mL Total Protein 6.7 (6.7-8.2) g/dL Albumin 3.3 (3.2-5.5) g/dL Globulin 3.4 (2.1-4.2) g/dL Albumin/Globulin Ratio 1.0 (1.0-2.2) 02/10/18 02/09/18 Range/Units 05:53 20:05 WBC 8.3 (4.8-10.8) x10^3/uL RBC 4.45 L (4.70-6.10) 10^6/uL Hgb 12.3 L (14.0-18.0) g/dL Hct 38.1 L (42.0-52.0) % MCV 85.7 (80.0-94.0) fL MCH 27.7 (27.0-31.0) pg MCHC 32.3 (32.0-36.0) g/dL RDW 21.5 H (12.0-15.0) % Plt Count 219 (130-450) 10^3/uL MPV 8.4 (7.4-11.4) fL Neut # (Auto) 6.2 (1.5-6.6) 10^3/uL Lymph # (Auto) 1.0 L (1.5-3.5) 10^3/uL Cross # (Auto) 0.8 (0.0-1.0) 10^3/uL Eos # (Auto) 0.2 (0.0-0.7) 10^3/uL Baso # (Auto) 0.1 (0.0-0.1) 10^3/uL Absolute Nucleated RBC 0.00 x10^3/uL Nucleated RBC % 0.0 /100WBC Manual Slide Review Indicated RBC Morph Micro Appear 2+ ANISOCYTOSIS (NORMAL) Sodium (135-145) mmol/L Potassium (3.5-5.0) mmol/L Chloride (101-111) mmol/L Carbon Dioxide (21-32) mmol/L Anion Gap (6-13) BUN (6-20) mg/dL Creatinine (0.6-1.2) mg/dL Estimated GFR (MDRD) (>89) Glucose (70-100) mg/dL POC Whole Bld Glucose 132 H (70 - 100) mg/dL Calcium (8.5-10.3) mg/dL Magnesium (1.7-2.8) mg/dL Total Bilirubin (0.2-1.0) mg/dL AST (10-42) IU/L ALT (10-60) IU/L Alkaline Phosphatase (42-121) IU/L B-Natriuretic Peptide (5-100) pg/mL Total Protein (6.7-8.2) g/dL Albumin (3.2-5.5) g/dL Globulin (2.1-4.2) g/dL Albumin/Globulin Ratio (1.0-2.2) Impression and Recommendations - Palliative Care Impression: This is an 87-year-old gentleman who has been treated for acute on chronic systolic and diastolic heart failure exacerbation. He remains quite frail, newly on insulin, with functional decline. Patient also presents with acute on chronic kidney disease, elevated bilirubin, hyponatremia and significant fatigue. Patient's goals include to return home, hoping to improve quality of life as well as quantity of life, the prognosis is guarded. Palliative care to establish rapport and follow in outpatient setting for symptom management and anticipatory guidance. Recommendations/Counseling Done: 1. 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 Patient has known ejection fraction from December 2017 to 25%, presented with fairly severe shortness of breath along with hepatic congestion, orthopnea, and edema. He has improved over hospitalization. But remains quite fatigued and limited both by his dyspnea and his deconditioning. Patient and family aware of the seriousness of his illness, patient will be discharged with new fluid restrictions, diet instructions, and medication regimen. Patient has had multiple hospitalizations and ongoing functional decline, goal is to improve his quality of life with focus on extending quantity as possible. He will be receiving home health services for teaching and medication management and monitoring, as well as newly prescribed insulin for diabetic management. will be retiring to assist with compliance and medication oversight. 2. Deconditioning. Reviewed concerns regarding transition home, patient has been much more comfortable and better able to manage his breathlessness and orthopnea in hospital bed. Previously he had been up in the recliner, unable to lay flat. Will order hospital bed, this will also assist with transfers, patient is high fall risk and has had multiple falls. He will be receiving home physical therapy as well. 3. Advanced care planning. Patient presents with serious illness and multiple comorbidities Including his combined systolic and diastolic heart failure, moderate to severe valvular heart disease, pulmonary hypertension, coronary artery disease with past history of V. fib with AICD in place amyloid cardiomyopathy, atrial fib, type 2 diabetes, chronic kidney stage III, and with multiple hospitalizations. Patient's goal is to return home, has a large extended family support, but remains quite frail and with poor prognostic indicators. Palliative care to provide support regarding pain and symptom management, anticipatory guidance, and support for transition to home setting. [id number] for home health services. Patient is considered homebound secondary is considerable and taxing effort for the patient leave the home, he is mostly bedbound throughout this hospitalization, able to ambulate only short distances. He will require RN services for medication management, CHF teaching, newly on insulin and instruction for diabetic management. PT services for home safety eval, equipment evaluation and recommendations, transfer training, home exercise program with balance training and progressive ambulation as tolerated. Contact for delivery: home Germania [phone]/ cell [phone]; LATRICE to facilitate receiving Home [phone] Face to Face for hospital bed:Due to dyspnea and orthopnea as a result of Patient's acute on chronic systolic and diastolic heart failure patient requires position of the body not feasible and ordinary bed such as elevation of his head more than 30 degrees. Head of bed elevation over 30 degrees will alleviate the exacerbate symptoms caused by his heart failure. He also requires frequent change in body position as such as immediate balance evaluation of head in bed as a result of his dyspnea. He has tried pillows and wedges which have been on successful at home, therefore a hospital bed will be necessary for treating the effects of his heart failure. [id number] for Group 1 mattress/over lady. Due to deconditioning as a result of his advanced heart failure patient has limited mobility in bed and requires a group one support surface to promote healthy skin integrity as well as to reduce occurrence of decub ulcers while in bed as a result of his advanced heart failure he does have impaired nutritional status with weight loss, peripheral neuropathy, and compromised circulatory status with lower extremity edema which can decreased skin integrity if not managed. Group 1 support will promote healthy skin integrity
[2018-02-11] MEDS: SODIUM CHLORIDE FLUSH 0.9% 10 ML SYRINGE IVP SCH ×3 (05:57→16:41)
[2018-02-11] MEDS: GABAPENTIN 300 MG CAPSULE PO SCH ×3 (05:57→22:07)
[2018-02-11] MEDS: INSULIN ASPART 300 UNIT/3 ML PEN SUBQ SCH ×4 (08:31→21:58)
[2018-02-11] MEDS: ASPIRIN EC 81 MG TABLET PO SCH (08:33)
[2018-02-11] MEDS: METHYLPHENIDATE 10 MG TABLET PO SCH ×2 (08:33→14:11)
[2018-02-11] MEDS: ENOXAPARIN 30 MG/0.3 ML SYRINGE SUBQ SCH (08:34)
[2018-02-11] MEDS: DOCUSATE SODIUM 250 MG CAPSULE PO SCH (08:34)
[2018-02-11] MEDS: POLYETHYLENE GLYCOL 3350 17 GM PACKET PO SCH (08:35)
[2018-02-11] MEDS: FAMOTIDINE 20 MG TABLET PO SCH (08:35)
[2018-02-11] MEDS: SENNA 8.6 MG TABLET PO SCH (08:35)
--- NOTE | 2018-02-11 08:35 | PROVIDER PROGRESS NOTE ---
Assessment/Plan - Problem List (1) Combined systolic and diastolic heart failure, NYHA class 3 Assessment/Plan: Hyponatremia is slightly better, indicating water loss > salt loss. Remain off Lasix yet, due to rising creat. Will decrease Spironolactone from bid to daily. (2) Acute renal failure superimposed on stage 3 chronic kidney disease Qualifiers: Acute renal failure type: unspecified Qualified Code(s): N17.9 - Acute kidney failure, unspecified; N18.3 - Chronic kidney disease, stage 3 (moderate) Assessment/Plan: Will lift fluid restriction temporarily. Will decrease Spironolactone . and family updated on slightly improved creatinine. (3) Diabetes Qualifiers: Diabetes mellitus type: type 2 Diabetes mellitus detention insulin use: without detention use Diabetes mellitus complication status: with kidney complications Diabetes mellitus complication detail: with chronic kidney disease Chronic kidney disease stage: stage 3 (moderate) Qualified Code(s): E11.22 - Type 2 diabetes mellitus with diabetic chronic kidney disease; N18.3 - Chronic kidney disease, stage 3 (moderate) Assessment/Plan: Will correct the diet to carb controlled, but give snacks with protein. The plan by previous Hospitalist, was to not restart Glipizide and Metformin at [facility], just to use Insulin. Will see if that can be accomplished with change of diet to a diabetic diet plus Insulin. DM educator answered 's questions today. (4) Hypotension due to medication Assessment/Plan: BP still low, despite Hx of HTN. This is due to over-diuresis and current med doses. Will decrease Spironolactone to daily from bid, Losartan was already decreased from 100 mg to 50 mg daily, Imdur dose will be decreased or stopped if no angina, Coreg is at lowest dose that is helpful for chronic systolic heart failure. If creat still abnormal tomorrow, will change Losartan to Hydralazine very low dose plus Nitrates for a CKD pt with systolic heart failure, continue other meds as above. (5) Boil of elbow Qualifiers: Laterality: left Qualified Code(s): L02.424 - Furuncle of left upper limb Assessment/Plan: Will order warm soaks several times a day. (6) Hip pain, left Assessment/Plan: Will order XRay of L hip and pelvis, since it wasn't done when patient fell, [facility] room on 02/08/18. (7) Fall Qualifiers: Encounter type: subsequent encounter Qualified Code(s): W19.XXXD - Unspecified fall, subsequent encounter Assessment/Plan: Pt started walking with PT today and c/o L hip samuels. Since BP is low for several days and pt had a fall in room on 02/08/18, will order orthostatic BP checks. - Current Meds Current Meds: Current Medications Generic Name Dose Route Start Last Admin Trade Name Freq PRN Reason Stop Dose Admin Aspirin 81 mg 02/06/18 09:00 02/10/18 08:21 Ecotrin PO 81 mg DAILY MISAEL Administration Carboxymethylcellulose 1 drops 02/06/18 08:31 02/06/18 10:28 Refresh 1% Ophth Drops EACHEYE 1 drops PRN PRN Administration Dry Eye Carvedilol 6.25 mg 02/09/18 08:58 02/10/18 20:49 Coreg PO Not Given BID MISAEL Enoxaparin Sodium 30 mg 02/10/18 09:00 02/10/18 08:23 Lovenox SUBQ 30 mg DAILY MISAEL Administration Famotidine 20 mg 02/06/18 09:00 02/10/18 08:23 Pepcid PO 20 mg DAILY MISAEL Administration Gabapentin 300 mg 02/06/18 06:00 02/11/18 05:57 Neurontin PO 300 mg TID MISAEL Administration Insulin Aspart 2 - 10 unit 02/08/18 17:00 02/10/18 20:49 Novolog SUBQ Not Given 0800,1200,1700,2100 [facility] Protocol Insulin Human NPH 4 unit 02/10/18 15:17 02/10/18 17:06 Novolin N SUBQ 4 unit BIDWM MISAEL Administration Isosorbide Mononitrate 30 mg 02/09/18 08:57 02/10/18 08:22 Imdur PO 30 mg DAILY MISAEL Administration Methylphenidate HCl 20 mg 02/06/18 16:00 02/10/18 14:55 Ritalin PO 20 mg 0800,1400 MISAEL Administration Ondansetron HCl 4 mg 02/05/18 23:35 02/10/18 12:02 Zofran Inj IVP 4 mg Q6HR PRN Administration Nausea / Vomiting Polyethylene Glycol 17 gm 02/06/18 09:00 02/10/18 08:22 Miralax PO 17 gm DAILY MISAEL Administration Sodium Chloride 10 ml 02/05/18 23:35 02/10/18 12:02 Normal Saline Flush 0.9% IVP 10 ml PRN PRN Administration NEEDED PER PROVIDER ORDERS Sodium Chloride 10 ml 02/06/18 01:00 02/11/18 05:57 Normal Saline Flush 0.9% IVP 10 ml 0100,0900,1700 MISAEL Administration Spironolactone 25 mg 02/06/18 09:00 02/10/18 20:50 Aldactone PO Not Given BID MISAEL - Lab Result Fish Bone Diagrams: 02/10/18 05:53 02/11/18 11:06 - Additional Planning My Orders: My Active Orders 02/11/18 Lunch Carb-controlled Diet [DIET] Subjective - Subjective Patient Reports: Resting Comfortably, Other (Has pain in L hip "where he fell, at home". Has pain and tenderness in L inner forearm and thinks its a boil.) Objective Vital Signs: Vital Signs - 24 hr 02/10/18 02/10/18 02/10/18 12:39 12:41 12:44 Temperature Heart Rate [ 65 58 L 65 Brachial] Respiratory 18 Rate Blood Pressure 74/43 L 94/50 L 83/57 L [Right Brachial artery] Blood Pressure 71/37 L [left brachial artery] O2 Saturation 96 99 02/10/18 02/10/18 02/10/18 13:16 15:38 15:40 Temperature 36.4 C L Heart Rate [ 67 62 Brachial] Respiratory 20 Rate Blood Pressure 98/64 78/44 L [Right Brachial artery] Blood Pressure 83/44 L [left brachial artery] O2 Saturation 97 02/10/18 02/10/18 02/11/18 16:15 20:00 00:30 Temperature 36.4 C L 36.5 C Heart Rate [ 58 L 65 Brachial] Respiratory 16 16 Rate Blood Pressure 85/46 L 96/62 97/50 L [Right Brachial artery] Blood Pressure [left brachial artery] O2 Saturation 94 94 02/11/18 02/11/18 05:00 07:54 Temperature 36.5 C 36.4 C L Heart Rate [ 60 59 L Brachial] Respiratory 16 18 Rate Blood Pressure 107/47 L 97/64 [Right Brachial artery] Blood Pressure [left brachial artery] O2 Saturation 94 98 Oxygen O2 Source [With Activity] Room air O2 Source Room air I&O (Last 24 Hrs): Intake and Output Totals x24h 02/09/18 02/10/18 02/11/18 23:59 23:59 23:59 Intake Total 1750 2670 Output Total 3560 2840 900 Balance -1810 -170 -900 General: Alert, Oriented x3 HEENT: Mucous membr. moist/pink, Other ([place]) Neck: Supple, No JVD Neuro: Non Focal Cardiovascular: No murmurs Respiratory: No respiratory distress, Breath sounds nml Abdomen: Soft Extremities: No edema, Other (L inner forearm has raised warm and tender 1 inch beaver with central "dougherty") - Results Results: Laboratory Results WBC 8.3 x10^3/uL (4.8-10.8) 02/10/18 05:53 RBC 4.45 10^6/uL (4.70-6.10) L 02/10/18 05:53 Hgb 12.3 g/dL (14.0-18.0) L 02/10/18 05:53 Hct 38.1 % (42.0-52.0) L 02/10/18 05:53 MCV 85.7 fL (80.0-94.0) 02/10/18 05:53 MCH 27.7 pg (27.0-31.0) 02/10/18 05:53 MCHC 32.3 g/dL (32.0-36.0) 02/10/18 05:53 RDW 21.5 % (12.0-15.0) H 02/10/18 05:53 Plt Count 219 10^3/uL (130-450) 02/10/18 05:53 MPV 8.4 fL (7.4-11.4) 02/10/18 05:53 Neut # (Auto) 6.2 10^3/uL (1.5-6.6) 02/10/18 05:53 Lymph # (Auto) 1.0 10^3/uL (1.5-3.5) L 02/10/18 05:53 [place]lee # (Auto) 0.8 10^3/uL (0.0-1.0) 02/10/18 05:53 Eos # (Auto) 0.2 10^3/uL (0.0-0.7) 02/10/18 05:53 Baso # (Auto) 0.1 10^3/uL (0.0-0.1) 02/10/18 05:53 Absolute Nucleated RBC 0.00 x10^3/uL 02/10/18 05:53 Band Neuts % (Manual) Not Reportable 02/06/18 06:53 Abnorm Lymph % (Manual) Not Reportable 02/06/18 06:53 Nucleated RBC % 0.0 /100WBC 02/10/18 05:53 Neutrophils # (Manual) Not Reportable 02/06/18 06:53 Lymphocytes # (Manual) Not Reportable 02/06/18 06:53 Monocytes # (Manual) Not Reportable 02/06/18 06:53 Eosinophils # (Manual) Not Reportable 02/06/18 06:53 Basophils # (Manual) Not Reportable 02/06/18 06:53 Differential Comment MANUAL=AUTO DIFF 02/06/18 06:53 Manual Slide Review Indicated 02/10/18 05:53 WBC Morphology NORMAL APPEARANCE (NORMAL) 02/05/18 21:55 Platelet Estimate NORMAL (130-450,000) (NORMAL) 02/09/18 06:10 Platelet Morphology RARE GIANT PLATELETS (NORMAL) 02/06/18 06:53 RBC Morph Micro Appear 2+ ANISOCYTOSIS (NORMAL) 2+ MACROCYTOSIS (NORMAL) 2+ POIKILOCYTOSIS (NORMAL) 2+ OVALOCYTES (NORMAL) 2+ POLYCHROMASIA (NORMAL) 02/06/18 06:53 RBC Morph Micro Appear 2+ ANISOCYTOSIS (NORMAL) 2+ MACROCYTOSIS (NORMAL) 2+ POIKILOCYTOSIS (NORMAL) 2+ OVALOCYTES (NORMAL) 2+ POLYCHROMASIA (NORMAL) 02/06/18 06:53 RBC Morph Micro Appear 2+ ANISOCYTOSIS (NORMAL) 2+ MACROCYTOSIS (NORMAL) 2+ POIKILOCYTOSIS (NORMAL) 2+ OVALOCYTES (NORMAL) 2+ POLYCHROMASIA (NORMAL) 02/06/18 06:53 RBC Morph Micro Appear 2+ ANISOCYTOSIS (NORMAL) 2+ MACROCYTOSIS (NORMAL) 2+ POIKILOCYTOSIS (NORMAL) 2+ OVALOCYTES (NORMAL) 2+ POLYCHROMASIA (NORMAL) 02/06/18 06:53 RBC Morph Micro Appear 2+ ANISOCYTOSIS (NORMAL) 2+ MACROCYTOSIS (NORMAL) 2+ POIKILOCYTOSIS (NORMAL) 2+ OVALOCYTES (NORMAL) 2+ POLYCHROMASIA (NORMAL) 02/06/18 06:53 RBC Morph Micro Appear 1+ ANISOCYTOSIS (NORMAL) 1+ OVALOCYTES (NORMAL) 1+ POLYCHROMASIA (NORMAL) 1+ HYPOCHROMASIA (NORMAL) 02/07/18 05:20 RBC Morph Micro Appear 1+ ANISOCYTOSIS (NORMAL) 1+ OVALOCYTES (NORMAL) 1+ P OLYCHROMASIA (NORMAL) 1+ HYPOCHROMASIA (NORMAL) 02/07/18 05:20 RBC Morph Micro Appear 1+ ANISOCYTOSIS (NORMAL) 1+ OVALOCYTES (NORMAL) 1+ POLYCHROMASIA (NORMAL) 1+ HYPOCHROMASIA (NORMAL) 02/07/18 05:20 RBC Morph Micro Appear 1+ ANISOCYTOSIS (NORMAL) 1+ OVALOCYTES (NORMAL) 1+ POLYCHROMASIA (NORMAL) 1+ HYPOCHROMASIA (NORMAL) 02/07/18 05:20 RBC Morph Micro Appear 1+ ANISOCYTOSIS (NORMAL) 1+ MICROCYTOSIS (NORMAL) 1+ POIKILOCYTOSIS (NORMAL) 1+ OVALOCYTES (NORMAL) 02/08/18 06:15 RBC Morph Micro Appear 1+ ANISOCYTOSIS (NORMAL) 1+ MICROCYTOSIS (NORMAL) 1+ POIKILOCYTOSIS (NORMAL) 1+ OVALOCYTES (NORMAL) 02/08/18 06:15 RBC Morph Micro Appear 1+ ANISOCYTOSIS (NORMAL) 1+ MICROCYTOSIS (NORMAL) 1+ POIKILOCYTOSIS (NORMAL) 1+ OVALOCYTES (NORMAL) 02/08/18 06:15 RBC Morph Micro Appear 1+ ANISOCYTOSIS (NORMAL) 1+ MICROCYTOSIS (NORMAL) 1+ POIKILOCYTOSIS (NORMAL) 1+ OVALOCYTES (NORMAL) 02/08/18 06:15 RBC Morph Micro Appear 1+ ANISOCYTOSIS (NORMAL) 1+ HYPOCHROMASIA (NORMAL) 1+ MICROCYTOSIS (NORMAL) 1+ POIKILOCYTOSIS (NORMAL) 1+ OVALOCYTES (NORMAL) 02/09/18 06:10 RBC Morph Micro Appear 1+ ANISOCYTOSIS (NORMAL) 1+ HYPOCHROMASIA (NORMAL) 1+ MICROCYTOSIS (NORMAL) 1+ POIKILOCYTOSIS (NORMAL) 1+ OVALOCYTES (NORMAL) 02/09/18 06:10 RBC Morph Micro Appear 1+ ANISOCYTOSIS (NORMAL) 1+ HYPOCHROMASIA (NORMAL) 1+ MICROCYTOSIS (NORMAL) 1+ POIKILOCYTOSIS (NORMAL) 1+ OVALOCYTES (NORMAL) 02/09/18 06:10 RBC Morph Micro Appear 1+ ANISOCYTOSIS (NORMAL) 1+ HYPOCHROMASIA (NORMAL) 1+ MICROCYTOSIS (NORMAL) 1+ POIKILOCYTOSIS (NORMAL) 1+ OVALOCYTES (NORMAL) 02/09/18 06:10 RBC Morph Micro Appear 1+ ANISOCYTOSIS (NORMAL) 1+ HYPOCHROMASIA (NORMAL) 1+ MICROCYTOSIS (NORMAL) 1+ POIKILOCYTOSIS (NORMAL) 1+ OVALOCYTES (NORMAL) 02/09/18 06:10 RBC Morph Micro Appear 2+ ANISOCYTOSIS (NORMAL) 02/10/18 05:53 PT 19.7 secs (9.9-12.6) H 02/06/18 06:53 INR 1.8 (0.8-1.2) H 02/06/18 06:53 Sodium 130 mmol/L (135-145) L 02/10/18 17:20 Potassium 5.0 mmol/L (3.5-5.0) 02/10/18 17:20 Chloride 89 mmol/L (101-111) L 02/10/18 17:20 Carbon Dioxide 30 mmol/L (21-32) 02/10/18 17:20 Anion Gap 11.0 (6-13) 02/10/18 17:20 BUN 63 mg/dL (6-20) H 02/10/18 17:20 Creatinine 2.7 mg/dL (0.6-1.2) H 02/10/18 17:20 Estimated GFR (MDRD) 27 (>89) L 02/10/18 17:20 Glucose 193 mg/dL (70-100) H 02/10/18 17:20 POC Whole Bld Glucose 137 mg/dL (70 - 100) H 02/11/18 07:56 Glycated Hemoglobin 10.5 % (4.6-6.2) H 02/06/18 06:53 Estim Average Glucose 255 (70-100) H 02/06/18 06:53 Calcium 8.6 mg/dL (8.5-10.3) 02/10/18 17:20 Magnesium 2.5 mg/dL (1.7-2.8) 02/10/18 05:53 Total Bilirubin 3.5 mg/dL (0.2-1.0) H 02/10/18 05:53 AST 30 IU/L (10-42) 02/10/18 05:53 ALT 20 IU/L (10-60) 02/10/18 05:53 Alkaline Phosphatase 149 IU/L (42-121) H 02/10/18 05:53 Troponin I < 0.04 ng/mL (<0.49) 02/06/18 10:50 B-Natriuretic Peptide 1052 pg/mL (5-100) H 02/10/18 05:53 Total Protein 6.7 g/dL (6.7-8.2) 02/10/18 05:53 Albumin 3.3 g/dL (3.2-5.5) 02/10/18 05:53 Globulin 3.4 g/dL (2.1-4.2) 02/10/18 05:53 Albumin/Globulin Ratio 1.0 (1.0-2.2) 02/10/18 05:53 Lipase 25 U/L (22-51) 02/05/18 21:55 Urine Color YELLOW 02/05/18 22:46 Urine Clarity CLEAR (CLEAR) 02/05/18 22:46 Urine pH 5.5 PH (5.0-7.5) 02/05/18 22:46 Ur Specific [place] 1.010 (1.002-1.030) 02/05/18 22:46 Urine Protein 30 mg/dL (NEGATIVE) H 02/05/18 22:46 Urine Glucose (UA) NEGATIVE mg/dL (NEGATIVE) 02/05/18 22:46 Urine Ketones NEGATIVE mg/dL (NEGATIVE) 02/05/18 22:46 Urine Occult Blood SMALL (NEGATIVE) H 02/05/18 22:46 Urine Nitrite NEGATIVE (NEGATIVE) 02/05/18 22:46 Urine Bilirubin NEGATIVE (NEGATIVE) 02/05/18 22:46 Urine Urobilinogen >=8.0 E.U./dL (NORMAL) H 02/05/18 22:46 Ur Leukocyte Esterase NEGATIVE (NEGATIVE) 02/05/18 22:46 Urine RBC 6-10 /HPF (0-5) H 02/05/18 22:46 Urine WBC 0-3 /HPF (0-3) 02/05/18 22:46 Ur Squamous Epith Cells FEW Squamous (<= Few) 02/05/18 22:46 Urine Bacteria Rare /HPF (None Seen) 02/05/18 22:46 Ur Microscopic Review INDICATED 02/05/18 22:46 Urine Culture Comments NOT INDICATED 02/05/18 22:46 ABX Reporting Has patient been on IV antibiotics over the past 48 hours?: No
[2018-02-11] MEDS: SPIRONOLACTONE 25 MG TABLET PO SCH ×2 (08:36→11:21)
[2018-02-11] MEDS: INSULIN NPH HUMAN 100 UNIT/1 ML 10 ML MDV SUBQ SCH ×2 (08:59→16:40)
[2018-02-11] MEDS: CARVEDILOL 3.125 MG TABLET PO SCH ×2 (09:01→21:59)
[2018-02-11] MEDS: ISOSORBIDE MONONITRATE ER 30 MG TABLET PO SCH (09:02)
[2018-02-11] MEDS: LOSARTAN 50 MG TABLET PO SCH (09:02)
[2018-02-11 11:22] LABS: CREATININE 2.5 mg/dL (0.6-1.2)
[2018-02-11] MEDS: ACETAMINOPHEN 325 MG TABLET PO PRN (14:11)
[2018-02-11] MEDS ORDERED: MAGNESIUM HYDROXIDE 2,400 MG/30 ML UDC PO ONE (21:00)
--- NOTE | 2018-02-11 21:33 | XRAY Report ---
Reason: L hip pain after a fall here, on 02/08/18 Procedure Date: 02/11/2018 Accession Number: [id number] / [id number] Procedure: XR - Hip w/Pelvis 2-3V LT CPT Code: FULL RESULT: EXAM: LEFT HIP AND PELVIS RADIOGRAPHY EXAM DATE: 02/11/2018 08:24 PM. HISTORY: L hip pain after a fall here, on 02/08/18. COMPARISONS: ABDOMEN 1 VIEW 02/10/2018 12:56 PM. TECHNIQUE: 1 view of the pelvis and 1 view of the hip. FINDINGS: Bones: No acute fracture is identified. Joints: Joint space at the hips is symmetric. Sacroiliac joints appear unremarkable. 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 Soft Tissues: There are vascular calcifications. IMPRESSION: No acute fracture or dislocation RADIA
[2018-02-12] MEDS: SODIUM CHLORIDE FLUSH 0.9% 10 ML SYRINGE IVP SCH ×3 (02:13→17:18)
[2018-02-12] MEDS: SODIUM CHLORIDE FLUSH 0.9% 10 ML SYRINGE IVP PRN (06:15)
[2018-02-12] MEDS: GABAPENTIN 300 MG CAPSULE PO SCH ×3 (06:15→21:08)
[2018-02-12 08:30] LABS: BASOPHILS # (AUTO) 0.1 10^3/uL (0.0-0.1); BASOPHILS % (AUTO) 1.1 %; EOSINOPHILS # (AUTO) 0.2 10^3/uL (0.0-0.7); EOSINOPHILS % (AUTO) 2.1 %; HGB - HEMOGLOBIN 12.7 g/dL (14.0-18.0); LYMPHOCYTES # (AUTO) 1.1 10^3/uL (1.5-3.5); LYMPHOCYTES % (AUTO) 13.9 %; MEAN CORPUSCULAR HEMOGLOBIN 28.7 pg (27.0-31.0); MEAN CORPUSCULAR HGB CONC 33.8 g/dL (32.0-36.0); MEAN PLATELET VOLUME 7.7 fL (7.4-11.4); MONOCYTES # (AUTO) 0.8 10^3/uL (0.0-1.0); MONOCYTES % (AUTO) 9.9 %; NEUTROPHILS # (AUTO) 5.7 10^3/uL (1.5-6.6); PLT - PLATELET COUNT 244 10^3/uL (130-450); RED BLOOD COUNT 4.43 10^6/uL (4.70-6.10); WHITE BLOOD COUNT 7.7 x10^3/uL (4.8-10.8)
[2018-02-12 08:32] LABS: RED CELL DISTRIBUTION WIDTH 21.1 % (12.0-15.0)
[2018-02-12 08:39] LABS: CREATININE 2.5 mg/dL (0.6-1.2)
[2018-02-12] MEDS: METHYLPHENIDATE 10 MG TABLET PO SCH ×2 (09:00→14:06)
[2018-02-12] MEDS: ASPIRIN EC 81 MG TABLET PO SCH (09:00)
[2018-02-12] MEDS: CARVEDILOL 3.125 MG TABLET PO SCH ×2 (09:00→21:04)
[2018-02-12] MEDS: FAMOTIDINE 20 MG TABLET PO SCH (09:01)
[2018-02-12] MEDS: ISOSORBIDE MONONITRATE ER 30 MG TABLET PO SCH (09:01)
[2018-02-12] MEDS: SPIRONOLACTONE 25 MG TABLET PO SCH (09:01)
[2018-02-12] MEDS: LOSARTAN 50 MG TABLET PO SCH (09:02)
[2018-02-12] MEDS: ENOXAPARIN 30 MG/0.3 ML SYRINGE SUBQ SCH (09:02)
[2018-02-12] MEDS: POLYETHYLENE GLYCOL 3350 17 GM PACKET PO SCH (09:02)
[2018-02-12] MEDS: INSULIN NPH HUMAN 100 UNIT/1 ML 10 ML MDV SUBQ SCH ×2 (09:02→16:51)
[2018-02-12] MEDS: INSULIN ASPART 300 UNIT/3 ML PEN SUBQ SCH ×4 (09:03→21:05)
[2018-02-12] MEDS: DOCUSATE SODIUM 250 MG CAPSULE PO SCH (09:03)
[2018-02-12] MEDS: SENNA 8.6 MG TABLET PO SCH (09:03)
--- NOTE | 2018-02-12 12:17 | Discharge Plan ---
Discharge Plan Disposition: 06 Home Health Service Condition: Stable Prescriptions: Aspirin [Adult Aspirin] 81 mg PO DAILY #30 tablet. Blood Sugar Diagnostic [Glucometer Strips] 1 each [facility] #100 strip Blood-Glucose Meter [Glucometer] 1 each [facility] #1 each hydrALAZINE [Apresoline] 10 mg PO DAILY #30 tablet Insulin Aspart [NovoLOG] 2 - 10 unit SUBQ 0800,1200,1700,2100 #1 pen Insulin NPH Human [NovoLIN N] 4 unit SUBQ BIDWM #1 pe Lancets 1 each [facility] #100 each Diet: Diabetic Activity Restrictions: Activity as Tolerated Shower Restrictions: No Driving Restrictions: Yes Assistance Devices: Walker Weight Bearing: Full Weight Instruction Topics: Log Blood Sugar, Heart Failure Tracking Weight, Hyperglycemia, Hypoglycemia, Blood Sugar Check, Insulin Injected, Heart Failure Diet Changes Additional Instructions or Follow Up instructions: You were admitted with shortness of breath from congestive heart failure. The diuretic helped relieve your water build up in your lungs but caused stress on your kidneys. There is a narrow range of fluid restriction and diuretic water pill use, that your body needs. If you are dehydrated, you can get lightheaded and have kidney failure, or if you take in excessive fluids, it will be retained in your lungs and you will be very short of breath again. To keep this situation stable, please weigh yourself DAILY and try to keep your weight change within 5 lbs from day to day. This means drink liquids guided by your thirst, not over hydration. Do not salt your food, which causes more water retention also. If you notice weight gain every day, call your PCP for advice on adjusting your diuretic (water pill). Resume your pre-hospital medications of Carvedilol, Aspirin, Methylphenidate and Gabapentin. The doses of the following have been changed: Spironolactone is ONCE a day not twice a day, Bumex is only on , , Sat mornings, Imdur is HALF a tablet daily. You now are on new prescriptions of: Hydralazine ONCE a day and the Insulin. You should NO LONGER TAKE Metformin or Glipizide. Stay on a diabetic diet. Please do your fingerstick glucose checks (or have your or family do them) as you were trained. Keep a log of these glucose values and bring them to your next doctor's appointment. Wear your SUJATA hose every day when you are awake, take them off for sleep. Home Health has been ordered for you, with a visiting Nurse, Nurses Aide and Physical Therapist to come to your home. See your PCP in 1 week in follow-up. You may need adjustment of your Diabetic management. See your [employer] as previously planned. If you have new or worsening symptoms, come back to the ER. Follow-Up Care: Home Health - RN, Home Health - PT, Home Health - OT No Smoking: If you smoke, Please STOP! Call for help. Follow-up with: Vick Hicks MD [Primary Care Provider] -
--- NOTE | 2018-02-12 16:25 | PROVIDER PROGRESS NOTE ---
Assessment/Plan - Problem List (1) Combined systolic and diastolic heart failure, NYHA class 3 Assessment/Plan: Pt has stable weight for 3 days. Hyponatremia is stable, but not better for 3 days. Will add back his loop diuretic at a diminished dose (QOD). Pt ready for [facility], but no hospital bed available at his house until tomorrow. He will go home with Home Health for RN, Aide, PT and OT. (2) Acute renal failure superimposed on stage 3 chronic kidney disease Qualifiers: Acute renal failure type: unspecified Qualified Code(s): N17.9 - Acute kidney failure, unspecified; N18.3 - Chronic kidney disease, stage 3 (moderate) Assessment/Plan: Slowly improving creat, on no fluid restriction for 1 and 1/2 days. Monitor BMP while here. (3) Diabetes Qualifiers: Diabetes mellitus type: type 2 Diabetes mellitus terminal make up operator insulin use: without terminal make up operator use Diabetes mellitus complication status: with kidney compl ications Diabetes mellitus complication detail: with chronic kidney disease Chronic kidney disease stage: stage 3 (moderate) Qualified Code(s): E11.22 - Type 2 diabetes mellitus with diabetic chronic kidney disease; N18.3 - Chronic kidney disease, stage 3 (moderate) Assessment/Plan: Continue carb controlled diet and ss Insulin. (4) Hypotension due to medication Assessment/Plan: Improved BP, and no orthostasis. Continue present lower doses of meds. (5) Boil of elbow Qualifiers: Laterality: left Qualified Code(s): L02.424 - Furuncle of left upper limb Assessment/Plan: Improved. Continue topical care prn. (7) Fall Qualifiers: Encounter type: subsequent encounter Qualified Code(s): W19.XXXD - Unspecified fall, subsequent encounter Assessment/Plan: Less pain of L hip today, pt was able to ambulate with PT. XRay done yesterday, showed no fracture or dislocation. - Current Meds Current Meds: Current Medications Generic Name Dose Route Start Last Admin Trade Name Freq PRN Reason Stop Dose Admin Acetaminophen 650 mg 02/05/18 23:35 02/11/18 14:11 Tylenol PO 650 mg Q4HR PRN Administration Pain 1 to 4 Aspirin 81 mg 02/06/18 09:00 02/12/18 09:00 Ecotrin PO 81 mg DAILY MISAEL Administration Carboxymethylcellulose 1 drops 02/06/18 08:31 02/06/18 10:28 Refresh 1% Ophth Drops EACHEYE 1 drops PRN PRN Administration Dry Eye Carvedilol 6.25 mg 02/09/18 08:58 02/12/18 09:00 Coreg PO 6.25 mg BID MISAEL Administration Docusate Sodium 250 - 500 mg 02/11/18 09:00 02/12/18 09:03 Colace 250mg Capsule PO Not Given DAILY MISAEL Enoxaparin Sodium 30 mg 02/10/18 09:00 02/12/18 09:02 Lovenox SUBQ 30 mg DAILY MISAEL Administration Famotidine 20 mg 02/06/18 09:00 02/12/18 09:01 Pepcid PO 20 mg DAILY MISAEL Administration Gabapentin 300 mg 02/06/18 06:00 02/12/18 14:04 Neurontin PO 300 mg TID MISAEL Administration Insulin Aspart 2 - 10 unit 02/08/18 17:00 02/12/18 12:02 Novolog SUBQ 4 unit 0800,1200,1700,2100 MISAEL Administration Protocol Insulin Human NPH 4 unit 02/10/18 15:17 02/12/18 09:02 Novolin N SUBQ 4 unit BIDWM MISAEL Administration Isosorbide Mononitrate 15 mg 02/12/18 09:00 02/12/18 09:01 Imdur PO Not Given DAILY [facility] Losartan Potassium 50 mg 02/11/18 09:00 02/12/18 09:02 Cozaar PO 50 mg DAILY MISAEL Administration Methylphenidate HCl 20 mg 02/06/18 16:00 02/12/18 14:06 Ritalin PO 20 mg 0800,1400 MISAEL Administration Ondansetron HCl 4 mg 02/05/18 23:35 02/10/18 12:02 Zofran Inj IVP 4 mg Q6HR PRN Administration Nausea / Vomiting Oxycodone HCl 5 mg 02/05/18 23:35 02/12/18 01:49 Roxicodone PO 5 mg Q4HR PRN Administration Pain 5 to 7 Polyethylene Glycol 17 gm 02/06/18 09:00 02/12/18 09:02 Miralax PO 17 gm DAILY MISAEL Administration Senna 8.6 - 17.2 mg 02/11/18 09:00 02/12/18 09:03 Senokot PO Not Given DAILY MISAEL Sodium Chloride 10 ml 02/05/18 23:35 02/12/18 06:15 Normal Saline Flush 0.9% IVP 10 ml PRN PRN Administration NEEDED PER PROVIDER ORDERS Sodium Chloride 10 ml 02/06/18 01:00 02/12/18 09:02 Normal Saline Flush 0.9% IVP 10 ml 0100,0900,1700 MISAEL Administration Spironolactone 25 mg 02/11/18 09:00 02/12/18 09:01 Aldactone PO 25 mg DAILY MISAEL Administration - Lab Result Fish Bone Diagrams: 02/12/18 08:18 02/12/18 08:18 - Additional Planning My Orders: My Active Orders 02/11/18 17:47 Miscellaenous Nursing Order [RC] QSHIFT 02/12/18 09:00 Isosorbide Mononitrate ER [Imdur] 15 mg PO DAILY 02/13/18 09:00 Bumetanide [Bumex] 1 mg PO TUTHSA Subjective - Subjective Patient Reports: Feeling Better, Resting Comfortably, Other (L hip pain is slightly better. L elbow boil is better.) Objective Vital Signs: Vital Signs - 24 hr 02/11/18 02/11/18 02/11/18 16:57 20:41 20:43 Temperature 36.4 C L Heart Rate [ 63 Brachial] Heart Rate [ 54 L Sitting (After 1 Minute)] Heart Rate [ 58 L Standing (After 1 Minute)] Heart Rate [ 57 L Supine] Respiratory 18 Rate Blood Pressure 90/58 L [Right Brachial artery] Blood Pressure 98/54 L [Sitting (After 1 Minute)] Blood Pressure 110/48 L [Standing ( After 1 Minute) ] Blood Pressure 124/52 L [Supine] O2 Saturation 94 02/11/18 02/11/18 02/12/18 20:51 23:40 04:00 Temperature 36.4 C L 36.4 C L 36.9 C Heart Rate [ 63 63 Brachial] Heart Rate [ Sitting (After 1 Minute)] Heart Rate [ Standing (After 1 Minute)] Heart Rate [ Supine] Respiratory 95 H 16 16 Rate Blood Pressure 95/58 L 108/63 [Right Brachial artery] Blood Pressure [Sitting (After 1 Minute)] Blood Pressure [Standing ( After 1 Minute) ] Blood Pressure [Supine] O2 Saturation 94 93 02/12/18 02/12/18 02/12/18 07:52 07:53 13:00 Temperature 36.8 C 36.6 C Heart Rate [ 64 60 Brachial] Heart Rate [ Sitting (After 1 Minute)] Heart Rate [ 66 Standing (After 1 Minute)] Heart Rate [ 64 Supine] Respiratory 16 18 Rate Blood Pressure 115/70 109/54 L [Right Brachial artery] Blood Pressure [Sitting (After 1 Minute)] Blood Pressure 110/54 L [Standing ( After 1 Minute) ] Blood Pressure 115/70 [Supine] O2 Saturation 97 92 02/12/18 15:32 Temperature 36.3 C L Heart Rate [ 58 L Brachial] Heart Rate [ Sitting (After 1 Minute)] Heart Rate [ Standing (After 1 Minute)] Heart Rate [ Supine] Respiratory 16 Rate Blood Pressure 105/56 L [Right Brachial artery] Blood Pressure [Sitting (After 1 Minute)] Blood Pressure [Standing ( After 1 Minute) ] Blood Pressure [Supine] O2 Saturation 98 Oxygen O2 Source [With Activity] Room air O2 Source Room air I&O (Last 24 Hrs): Intake and Output Totals x24h 02/10/18 02/11/18 02/12/18 23:59 23:59 23:59 Intake Total 2670 1400 1050 Output Total 2840 1725 1500 Balance -170 -325 -450 General: Alert, Oriented x3 HEENT: Mucous membr. moist/pink, Other (NAVAJO) Neck: Supple, No JVD Neuro: Non Focal Cardiovascular: Regular rate, No murmurs Respiratory: No respiratory distress, Breath sounds nml Abdomen: Soft Extremities: No edema, Other (L inner forearm has a bandage over area with boil and is non-tender.) - Results Results: Laboratory Results WBC 7.7 x10^3/uL (4.8-10.8) 02/12/18 08:18 RBC 4.43 10^6/uL (4.70-6.10) L 02/12/18 08:18 Hgb 12.7 g/dL (14.0-18.0) L 02/12/18 08:18 Hct 37.6 % (42.0-52.0) L 02/12/18 08:18 MCV 85.0 fL (80.0-94.0) 02/12/18 08:18 MCH 28.7 pg (27.0-31.0) 02/12/18 08:18 MCHC 33.8 g/dL (32.0-36.0) 02/12/18 08:18 RDW 21.1 % (12.0-15.0) H 02/12/18 08:18 Plt Count 244 10^3/uL (130-450) 02/12/18 08:18 MPV 7.7 fL (7.4-11.4) 02/12/18 08:18 Neut # (Auto) 5.7 10^3/uL (1.5-6.6) 02/12/18 08:18 Lymph # (Auto) 1.1 10^3/uL (1.5-3.5) L 02/12/18 08:18 [place] # (Auto) 0.8 10^3/uL (0.0-1.0) 02/12/18 08:18 Eos # (Auto) 0.2 10^3/uL (0.0-0.7) 02/12/18 08:18 Baso # (Auto) 0.1 10^3/uL (0.0-0.1) 02/12/18 08:18 Absolute Nucleated RBC 0.01 x10^3/uL 02/12/18 08:18 Band Neuts % (Manual) Not Reportable 02/06/18 06:53 Abnorm Lymph % (Manual) Not Reportable 02/06/18 06:53 Nucleated RBC % 0.1 /100WBC 02/12/18 08:18 Neutrophils # (Manual) Not Reportable 02/06/18 06:53 Lymphocytes # (Manual) Not Reportable 02/06/18 06:53 Monocytes # (Manual) Not Reportable 02/06/18 06:53 Eosinophils # (Manual) Not Reportable 02/06/18 06:53 Basophils # (Manual) Not Reportable 02/06/18 06:53 Differential Comment MANUAL=AUTO DIFF 02/06/18 06:53 Manual Slide Review Indicated 02/12/18 08:18 WBC Morphology NORMAL APPEARANCE (NORMAL) 02/05/18 21:55 Platelet Estimate NORMAL (130-450,000) (NORMAL) 02/09/18 06:10 Platelet Morphology RARE GIANT PLATELETS (NORMAL) 02/06/18 06:53 RBC Morph Micro Appear 2+ ANISOCYTOSIS (NORMAL) 2+ MACROCYTOSIS (NORMAL) 2+ POIKILOCYTOSIS (NORMAL) 2+ OVALOCYTES (NORMAL) 2+ POLYCHROMASIA (NORMAL) 02/06/18 06:53 RBC Morph Micro Appear 2+ ANISOCYTOSIS (NORMAL) 2+ MACROCYTOSIS (NORMAL) 2+ POIKILOCYTOSIS (NORMAL) 2+ OVALOCYTES (NORMAL) 2+ POLYCHROMASIA (NORMAL) 02/06/18 06:53 RBC Morph Micro Appear 2+ ANISOCYTOSIS (NORMAL) 2+ MACROCYTOSIS (NORMAL) 2+ POIKILOCYTOSIS (NORMAL) 2+ OVALOCYTES (NORMAL) 2+ POLYCHROMASIA (NORMAL) 02/06/18 06:53 RBC Morph Micro Appear 2+ ANISOCYTOSIS (NORMAL) 2+ MACROCYTOSIS (NORMAL) 2+ POIKILOCYTOSIS (NORMAL) 2+ OVALOCYTES (NORMAL) 2+ POLYCHROMASIA (NORMAL) 02/06/18 06:53 RBC Morph Micro Appear 2+ ANISOCYTOSIS (NORMAL) 2+ MACROCYTOSIS (NORMAL) 2+ POIKILOCYTOSIS (NORMAL) 2+ OVALOCYTES (NORMAL) 2+ POLYCHROMASIA (NORMAL) 02/06/18 06:53 RBC Morph Micro Appear 1+ ANISOCYTOSIS (NORMAL) 1+ OVALOCYTES (NORMAL) 1+ POLYCHROMASIA (NORMAL) 1+ HYPOCHROMASIA (NORMAL) 02/07/18 05:20 RBC Morph Micro Appear 1+ ANISOCYTOSIS (NORMAL) 1+ OVALOCYTES (NORMAL) 1+ POLYCHROMASIA (NORMAL) 1+ HYPOCHROMASIA (NORMAL) 02/07/18 05:20 RBC Morph Micro Appear 1+ ANISOCYTOSIS (NORMAL) 1+ OVALOCYTES (NORMAL) 1+ POLYCHROMASIA (NORMAL) 1+ HYPOCHROMASIA (NORMAL) 02/07/18 05:20 RBC Morph Micro Appear 1+ ANISOCYTOSIS (NORMAL) 1+ OVALOCYTES (NORMAL) 1+ POLYCHROMASIA (NORMAL) 1+ HYPOCHROMASIA (NORMAL) 02/07/18 05:20 RBC Morph Micro Appear 1+ ANISOCYTOSIS (NORMAL) 1+ MICROCYTOSIS (NORMAL) 1+ POIKILOCYTOSIS (NORMAL) 1+ OVALOCYTES (NORMAL) 02/08/18 06:15 RBC Morph Micro Appear 1+ ANISOCYTOSIS (NORMAL) 1+ MICROCYTOSIS (NORMAL) 1+ POIKILOCYTOSIS (NORMAL) 1+ OVALOCYTES (NORMAL) 02/08/18 06:15 RBC Morph Micro Appear 1+ ANISOCYTOSIS (NORMAL) 1+ MICROCYTOSIS (NORMAL) 1+ POIKILOCYTOSIS (NORMAL) 1+ OVALOCYTES (NORMAL) 02/08/18 06:15 RBC Morph Micro Appear 1+ ANISOCYTOSIS (NORMAL) 1+ MICROCYTOSIS (NORMAL) 1+ POIKILOCYTOSIS (NORMAL) 1+ OVALOCYTES (NORMAL) 02/08/18 06:15 RBC Morph Micro Appear 1+ ANISOCYTOSIS (NORMAL) 1+ HYPOCHROMASIA (NORMAL) 1+ MICROCYTOSIS (NORMAL) 1+ POIKILOCYTOSIS (NORMAL) 1+ OVALOCYTES (NORMAL) 02/09/18 06:10 RBC Morph Micro Appear 1+ ANISOCYTOSIS (NORMAL) 1+ HYPOCHROMASIA (NORMAL) 1+ MICROCYTOSIS (NORMAL) 1+ POIKILOCYTOSIS (NORMAL) 1+ OVALOCYTES (NORMAL) 02/09/18 06:10 RBC Morph Micro Appear 1+ ANISOCYTOSIS (NORMAL) 1+ HYPOCHROMASIA (NORMAL) 1+ MICROCYTOSIS (NORMAL) 1+ POIKILOCYTOSIS (NORMAL) 1+ OVALOCYTES (NORMAL) 02/09/18 06:10 RBC Morph Micro Appear 1+ ANISOCYTOSIS (NORMAL) 1+ HYPOCHROMASIA (NORMAL) 1+ MICROCYTOSIS (NORMAL) 1+ POIKILOCYTOSIS (NORMAL) 1+ OVALOCYTES (NORMAL) 02/09/18 06:10 RBC Morph Micro Appear 1+ ANISOCYTOSIS (NORMAL) 1+ HYPOCHROMASIA (NORMAL) 1+ MICROCYTOSIS (NORMAL) 1+ POIKILOCYTOSIS (NORMAL) 1+ OVALOCYTES (NORMAL) 02/09/18 06:10 RBC Morph Micro Appear 2+ ANISOCYTOSIS (NORMAL) 02/10/18 05:53 PT 19.7 secs (9.9-12.6) H 02/06/18 06:53 INR 1.8 (0.8-1.2) H 02/06/18 06:53 Sodium 129 mmol/L (135-145) L 02/12/18 08:18 Potassium 4.8 mmol/L (3.5-5.0) 02/12/18 08:18 Chloride 87 mmol/L (101-111) L 02/12/18 08:18 Carbon Dioxide 34 mmol/L (21-32) H 02/12/18 08:18 Anion Gap 8.0 (6-13) 02/12/18 08:18 BUN 70 mg/dL (6-20) H 02/12/18 08:18 Creatinine 2.5 mg/dL (0.6-1.2) H 02/12/18 08:18 Estimated GFR (MDRD) 30 (>89) L 02/12/18 08:18 Glucose 149 mg/dL (70-100) H 02/12/18 08:18 POC Whole Bld Glucose 136 mg/dL (70 - 100) H 02/12/18 07:29 Glycated Hemoglobin 10.5 % (4.6-6.2) H 02/06/18 06:53 Estim Average Glucose 255 (70-100) H 02/06/18 06:53 Calcium 9.0 mg/dL (8.5-10.3) 02/12/18 08:18 Magnesium 2.5 mg/dL (1.7-2.8) 02/10/18 05:53 Total Bilirubin 3.5 mg/dL (0.2-1.0) H 02/10/18 05:53 AST 30 IU/L (10-42) 02/10/18 05:53 ALT 20 IU/L (10-60) 02/10/18 05:53 Alkaline Phosphatase 149 IU/L (42-121) H 02/10/18 05:53 Troponin I < 0.04 ng/mL (<0.49) 02/06/18 10:50 B-Natriuretic Peptide 1052 pg/mL (5-100) H 02/10/18 05:53 Total Protein 6.7 g/dL (6.7-8.2) 02/10/18 05:53 Albumin 3.3 g/dL (3.2-5.5) 02/10/18 05:53 Globulin 3.4 g/dL (2.1-4.2) 02/10/18 05:53 Albumin/Globulin Ratio 1.0 (1.0-2.2) 02/10/18 05:53 Lipase 25 U/L (22-51) 02/05/18 21:55 Urine Color YELLOW 02/05/18 22:46 Urine Clarity CLEAR (CLEAR) 02/05/18 22:46 Urine pH 5.5 PH (5.0-7.5) 02/05/18 22:46 Ur Specific [place] 1.010 (1.002-1.030) 02/05/18 22:46 Urine Protein 30 mg/dL (NEGATIVE) H 02/05/18 22:46 Urine Glucose (UA) NEGATIVE mg/dL (NEGATIVE) 02/05/18 22:46 Urine Ketones NEGATIVE mg/dL (NEGATIVE) 02/05/18 22:46 Urine Occult Blood SMALL (NEGATIVE) H 02/05/18 22:46 Urine Nitrite NEGATIVE (NEGATIVE) 02/05/18 22:46 Urine Bilirubin NEGATIVE (NEGATIVE) 02/05/18 22:46 Urine Urobilinogen >=8.0 E.U./dL (NORMAL) H 02/05/18 22:46 Ur Leukocyte Esterase NEGATIVE (NEGATIVE) 02/05/18 22:46 Urine RBC 6-10 /HPF (0-5) H 02/05/18 22:46 Urine WBC 0-3 /HPF (0-3) 02/05/18 22:46 Ur Squamous Epith Cells FEW Squamous (<= Few) 02/05/18 22:46 Urine Bacteria Rare /HPF (None Seen) 02/05/18 22:46 Ur Microscopic Review INDICATED 02/05/18 22:46 Urine Culture Comments NOT INDICATED 02/05/18 22:46
[2018-02-12] MEDS: ACETAMINOPHEN 325 MG TABLET PO PRN (21:08)
[2018-02-13] MEDS: SODIUM CHLORIDE FLUSH 0.9% 10 ML SYRINGE IVP SCH ×2 (01:10→09:10)
[2018-02-13] MEDS: GABAPENTIN 300 MG CAPSULE PO SCH (06:03)
[2018-02-13] MEDS: INSULIN ASPART 300 UNIT/3 ML PEN SUBQ SCH ×2 (07:41→11:56)
[2018-02-13] MEDS: DOCUSATE SODIUM 250 MG CAPSULE PO SCH (07:42)
[2018-02-13] MEDS: SENNA 8.6 MG TABLET PO SCH (07:42)
[2018-02-13 08:58] LABS: CREATININE 2.4 mg/dL (0.6-1.2); MAGNESIUM 3.1 mg/dL (1.7-2.8)
[2018-02-13] MEDS ORDERED: hydrALAZINE 10 MG TABLET PO SCH (09:00)
[2018-02-13] MEDS ORDERED: BUMETANIDE 1 MG TABLET PO SCH (09:00)
[2018-02-13 09:02] LABS: CALCIUM 8.7 mg/dL (8.5-10.3)
[2018-02-13] MEDS: CARVEDILOL 3.125 MG TABLET PO SCH (09:07)
[2018-02-13] MEDS: FAMOTIDINE 20 MG TABLET PO SCH (09:07)
[2018-02-13] MEDS: ISOSORBIDE MONONITRATE ER 30 MG TABLET PO SCH (09:08)
[2018-02-13] MEDS: POLYETHYLENE GLYCOL 3350 17 GM PACKET PO SCH (09:08)
[2018-02-13] MEDS: ASPIRIN EC 81 MG TABLET PO SCH (09:08)
[2018-02-13] MEDS: SPIRONOLACTONE 25 MG TABLET PO SCH (09:08)
[2018-02-13] MEDS: ENOXAPARIN 30 MG/0.3 ML SYRINGE SUBQ SCH (09:09)
[2018-02-13] MEDS: INSULIN NPH HUMAN 100 UNIT/1 ML 10 ML MDV SUBQ SCH (09:09)
[2018-02-13] MEDS: METHYLPHENIDATE 10 MG TABLET PO SCH (09:15)
[2018-02-13 11:48] VITALS: BP 96/54
--- NOTE | 2018-02-20 14:38 | DISCHARGE SUMMARY ---
Physician: Emelyn Rollins MD DATE OF ADMISSION: 02/05/2018 DATE OF DISCHARGE: 02/13/2018 This is an 87-year-old black male with a history of coronary disease, ventricular fibrillation arrest with a defibrillator, heart failure, chronic kidney disease, BPH and cor pulmonale with pulmonary hypertension. The patient presented after a month of progressively worsening dyspnea on exertion, orthopnea, leg edema, dyspnea even with speaking and fatigue from being short of breath plus poor sleep due to orthopnea. He was found to be in heart failure and admitted for management. HOSPITAL COURSE AND DISCHARGE DIAGNOSES 1. 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 The patient was started on IV diuretics. He had a good progressive weight loss throughout his course. By 48 hours, he stated that he "felt like a different man." He had troponin values checked that were normal x3. He underwent an Echo during his last admission that showed LVEF of 25%. The patient's diuresis led to hypotension and his medications needed to be decreased (see below). He had a stable blood pressure at the time of discharge. The patient's sodium was 133 on presentation, this improved to 135; however, worsened during his course down to 129 and 124 at discharge. This will need further monitoring, probable adjustment of his diuretics and other medications. 2. Acute renal failure on chronic kidney disease, stage 3. His admission BUN and creatinine were 38 and 1.9, which worsened with diuresis to as high as 70 and 2.5. His diuretics were stopped briefly and then restarted orally at a lower dose and he was discharged with a BUN of 71 and creatinine 2.4. He was advised to drink liquids, by using his thirst as his guide, and not to over hydrate. He was advised not to use salt, which could add to fluid retention. 3. Diabetes. The patient was on a carbohydrate controlled diet and sliding scale insulin while here. He had an A1c at admission of 10.5 indicating poor control. Due to worsening renal function, his Metformin was stopped. He was started on Insulin. The patient and his and family received diabetic education intensively while here. 4. Chronic atrial fibrillation. The patient's heart rate was under fair control while here. The patient is on an aspirin daily. Not anticoagulation presumably due to his age and falls. 5. Hypotension due to medications. The patient is usually hypertensive, which was felt to be a reason for his CHF exacerbation. At presentation, his vital signs showed a blood pressure of 157/110. After diuresis; however, it dropped to 120s/60s and as low as 98/57. It was because of this, that the medications needed to be adjusted as described above. 6. Boil of the left elbow. In the middle of his admission, he noted an area of tenderness and swelling of the internal aspect of his left arm near his elbow. Warm soaks were put on this, it came to a head and it was then bandaged. 7. Fall. The patient fell in his room while here, the following day he had left hip pain and x-rays were done that showed no fracture or dislocation. 8. History of ventricular fibrillation with AICD. There were no severe dysrhythmias while here, noted on telemetry. 9. Benign prostatic hypertrophy. The patient was kept on his medications while here. 10. Hard of hearing. 11. History of coronary artery disease with stent in 2009. The patient was kept on his statin and aspirin while here and had no symptoms of angina. 12. History of valve disease and pulmonary hypertension. His last Echo had shown moderate mitral and tricuspid regurgitation and severe pulmonary hypertension with PA pressure of 109. Because of this, he was evaluated for need for home oxygen and was found to have a room air saturation of 99% and did not qualify, since with exercise it was in the 90s as well. LABORATORY AND IMAGING: Reviewed and summarized above. ALLERGIES: PENICILLIN AND PROPOXYPHENE. MEDICATIONS AT DISCHARGE 1. Carvedilol 6.25 b.i.d. 2. Gabapentin 300 mg t.i.d. 3. Methylphenidate 20 mg b.i.d. 4. Aldactone 25 mg daily. 5. Aspirin 81 mg daily. 6. Bumex 1 mg on Saturday, , Saturday. 7. Hydralazine 10 mg daily. 8. Imdur 15 mg daily. 9. Patient's two oral anti-hypoglycemics were stopped while here and he was started on insulin NPH 4 units subcutaneous b.i.d. and he was provided with a glucometer, monitor strips, lancets. CONDITION AT DISCHARGE: Stable. PHYSICAL EXAMINATION VITAL SIGNS: Blood pressure 101/53, pulse of 60-100 in atrial fibrillation. Afebrile. Room air saturation 99% at rest. HEENT: Unremarkable. NECK: Without JVD in a supine position. CHEST: Clear. HEART: Sounds distant 1-2 over 6 systolic murmur heard at the lower left sternal border. No heave or gallop. ABDOMEN: Soft, nontender. No organomegaly. EXTREMITIES: No edema. NEUROLOGIC: Grossly intact, except he is hard of hearing. FOLLOWUP: The patient will be under Home Health service sin his home after discharge. The patient should see his PCP and/or cloth shrinking tester within a week. CODE STATUS: DNR. Time required to complete this entire discharge, chart review, patient education, prescription orders, dictation: 60 minutes. TD: 02/20/2018 14:11 MITZI
== END 2018-02-13 12:50 | disposition home health service (06) | DRG 291 ==
LOC: ED 21:31 → MS2 23:36
PROVIDERS: ADMIT Internal Medicine; ATTEND Internal Medicine
DX: I13.0 Hypertensive heart and chronic kidney disease with heart failure and stage 1 through stage 4 chronic kidney disease, or unspecified chronic kidney disease (principal); I50.9 Heart failure, unspecified; I50.43 Acute on chronic combined systolic (congestive) and diastolic (congestive) heart failure; N17.9 Acute kidney failure, unspecified; E85.4 Organ-limited amyloidosis; I25.2 Old myocardial infarction; I48.91 Unspecified atrial fibrillation; E87.1 Hypo-osmolality and hyponatremia; R18.8 Other ascites; I43 Cardiomyopathy in diseases classified elsewhere; Z79.899 Other long term (current) drug therapy; I50.84 End stage heart failure; I27.81 Cor pulmonale (chronic); I48.2 Chronic atrial fibrillation; E11.22 Type 2 diabetes mellitus with diabetic chronic kidney disease; N18.3 Chronic kidney disease, stage 3 (moderate); E11.65 Type 2 diabetes mellitus with hyperglycemia; E11.42 Type 2 diabetes mellitus with diabetic polyneuropathy; N28.89 Other specified disorders of kidney and ureter; N28.1 Cyst of kidney, acquired; N40.0 Benign prostatic hyperplasia without lower urinary tract symptoms; I95.2 Hypotension due to drugs; E11.649 Type 2 diabetes mellitus with hypoglycemia without coma; T38.3X5A Adverse effect of insulin and oral hypoglycemic [antidiabetic] drugs, initial encounter; T50.1X5A Adverse effect of loop [high-ceiling] diuretics, initial encounter; T46.5X5A Adverse effect of other antihypertensive drugs, initial encounter; T46.3X5A Adverse effect of coronary vasodilators, initial encounter; T44.7X5A Adverse effect of beta-adrenoreceptor antagonists, initial encounter; L02.424 Furuncle of left upper limb; M25.552 Pain in left hip; W18.11XA Fall from or off toilet without subsequent striking against object, initial encounter; Y92.231 Patient bathroom in hospital as the place of occurrence of the external cause; R11.2 Nausea with vomiting, unspecified; I08.1 Rheumatic disorders of both mitral and tricuspid valves; I27.22 Pulmonary hypertension due to left heart disease; K76.1 Chronic passive congestion of liver; H91.90 Unspecified hearing loss, unspecified ear; I25.10 Atherosclerotic heart disease of native coronary artery without angina pectoris; R62.7 Adult failure to thrive; M25.561 Pain in right knee; T84.84XS Pain due to internal orthopedic prosthetic devices, implants and grafts, sequela; Z66 Do not resuscitate; Z51.5 Encounter for palliative care; Z96.651 Presence of right artificial knee joint; Z79.84 Long term (current) use of oral hypoglycemic drugs; Z95.810 Presence of automatic (implantable) cardiac defibrillator; Z95.5 Presence of coronary angioplasty implant and graft; Z86.74 Personal history of sudden cardiac arrest; Z86.718 Personal history of other venous thrombosis and embolism; Z87.891 Personal history of nicotine dependence; Z91.81 History of falling; Z74.01 Bed confinement status; Z79.82 Long term (current) use of aspirin
CPT/HCPCS: 36415; 71045; 74018; 76700; 80048; 80053; 81001; 81003; 83036; 83690; 83735; 83880; 84484; 85025; 85610; 87086; 93005; 94761; 96374; 99222; 99284; 99285

== ENCOUNTER 2018-02-21 08:00 | Outpatient (CLI) | payer MEDICARE ==
[2018-02-21 13:49] LABS: CALCIUM 8.5 mg/dL (8.5-10.3); CREATININE 2.6 mg/dL (0.6-1.2)
== END 2018-02-21 08:01 | disposition home or self-care (01) ==
LOC: LAB.R 08:00
PROVIDERS: ATTEND Specialist
DX: E87.6 Hypokalemia (principal)
CPT/HCPCS: 80048

== ENCOUNTER 2018-09-11 16:50 | Emergency (ER) | payer MEDICARE, MEDICAID ==
--- NOTE | 2018-09-11 18:52 | CT Report ---
Reason: fall, L head pain Procedure Date: 09/11/2018 Accession Number: [id number] / [id number] Procedure: CT - HEAD WO CPT Code: FULL RESULT: EXAM: CT HEAD EXAM DATE: 09/11/2018 06:25 PM. CLINICAL HISTORY: Left head pain status post fall. COMPARISON: None. TECHNIQUE: Multiaxial CT images were obtained from the foramen magnum to the vertex. Reformats: Sagittal and coronal. IV contrast: None. In accordance with CT protocol optimization, one or more of the following dose reduction techniques were utilized for this exam: automated exposure control, adjustment of mA and/or KV based on patient size, or use of iterative reconstructive technique. FINDINGS: Parenchyma: No intraparenchymal hemorrhage. No evidence of mass, midline shift, or CT findings of infarction. [place]-white differentiation is distinct. Moderate to severe cerebral atrophy consistent with advanced age present. Only minimal white matter disease noted. Extraaxial Spaces: Normal for age. No subdural or epidural collections identified. Ventricles: Normal in size and position. Sinuses and Orbits: Imaged paranasal sinuses, orbits, and mastoids show no significant abnormality. Bones: No evidence of fracture or calvarial defect. Other: None. IMPRESSION: No acute fracture or intrarenal hemorrhage. RADIA
--- NOTE | 2018-09-11 18:57 | CT Report ---
Reason: fall, neck pain Procedure Date: 09/11/2018 Accession Number: [id number] / [id number] Procedure: CT - CERVICAL SPINE WO CPT Code: FULL RESULT: EXAM: CT CERVICAL SPINE WITHOUT CONTRAST DATE: 09/11/2018 06:25 PM. HISTORY: Neck pain status post fall. COMPARISONS: None. TECHNIQUE: Thin-section axial images were acquired of the cervical spine without contrast. Post-processing: Coronal and sagittal reformats. Other: None. In accordance with CT protocol optimization, one or more of the following dose reduction techniques were utilized for this exam: automated exposure control, adjustment of mA and/or KV based on patient size, or use of iterative reconstructive technique. FINDINGS: Alignment: A mild levoscoliosis at C5 present. Grade 1 anterolisthesis at C3-C4 measures 3 mm. There is also 2 mm of grade 1 anterolisthesis at C7-T1. Mild mid cervical kyphosis noted. Bones: Diffuse osteopenia noted. No evidence for acute fracture or focal bone lesion. Interspace Levels/Facets: Severe degenerative disk disease present from C4-C7 with near complete disk space loss and more moderate disease at C3-C4 and C7-T1 and mild disease at the remaining levels. Severe degenerative facet disease present diffusely and bilaterally. Musculature: Normal. No fatty atrophy. Other: The paravertebral and prevertebral soft tissues are unremarkable. The lung apices are clear. IMPRESSION: 1. No acute fracture. 2. Mild C5 levoscoliosis. 3. Mild listheses at C3-C4 and C7-T1 secondary to facet disease. 4. Degenerative disk and facet disease as described. RADIA
[2018-09-11 19:05] LABS: BASOPHILS # (AUTO) 0.1 10^3/uL (0.0-0.1); BASOPHILS % (AUTO) 1.2 %; EOSINOPHILS # (AUTO) 0.2 10^3/uL (0.0-0.7); EOSINOPHILS % (AUTO) 2.3 %; HGB - HEMOGLOBIN 8.2 g/dL (14.0-18.0); LYMPHOCYTES % (AUTO) 13.5 %; MEAN CORPUSCULAR HEMOGLOBIN 20.7 pg (27.0-31.0); MEAN CORPUSCULAR HGB CONC 29.1 g/dL (32.0-36.0); MEAN CORPUSCULAR VOLUME 71.3 fL (80.0-94.0); MONOCYTES # (AUTO) 0.8 10^3/uL (0.0-1.0); MONOCYTES % (AUTO) 10.3 %; NEUTROPHILS # (AUTO) 5.4 10^3/uL (1.5-6.6); NEUTROPHILS % (AUTO) 72.7 %; PLT - PLATELET COUNT 263 10^3/uL (130-450); RED BLOOD COUNT 3.94 10^6/uL (4.70-6.10); RED CELL DISTRIBUTION WIDTH 20.5 % (12.0-15.0); WHITE BLOOD COUNT 7.4 x10^3/uL (4.8-10.8)
[2018-09-11 19:51] LABS: PLATELET ESTIMATE, MANUAL NORMAL (130-450,000) (NORMAL); PLATELET MORPHOLOGY NORMAL APPEARANCE (NORMAL)
[2018-09-11 19:58] LABS: % IRON SATURATION 5 % (20-50); IRON 22 ug/dL (45-182); TOTAL IRON BINDING CAPACITY 438 ug/dL (250-450); TRANSFERRIN 313 mg/dL (180-329)
[2018-09-11] MEDS ORDERED: oxyCODONE 5 MG TABLET PO STA (20:16)
--- NOTE | 2018-09-11 20:19 | ED Physician Documentation ---
History of Present Illness - Stated complaint Stated Complaint: GLF-NECK PX/CARREON - Chief complaint Chief Complaint: Trauma Hd/Nk - History obtained from History obtained from: Patient, Family - History of Present Illness Timing: Today Pain level max: 8 Pain level now: 6 - Additonal information Additional information: Patient was getting out of bed, tripped fell striking the left side of his head. The left side of his head and neck now hurt. No focal neurological deficits. Worse with movement and better with rest. Review of Systems Constitutional: denies: Fever, Chills Cardiac: denies: Chest pain / pressure GI: denies: Nausea, Vomiting Musculoskeletal: reports: Neck pain. denies: Back pain Neurologic: reports: Headache. denies: Confused PD PAST MEDICAL HISTORY - Past Medical History Cardiovascular: Congestive heart failure, Hypertension, Coronary artery disease, Deep vein thrombosis, [place], Atrial fibrillation Respiratory: COPD, Shortness of breath Neuro: Peripheral neuropathy Endocrine/Autoimmune: Type 2 diabetes GI: None : Benign prostate hypertrophy, Renal insuffiency HEENT: Chronic hearing loss Psych: None Musculoskeletal: Osteoarthritis Derm: None - Past Surgical History Past Surgical History: Yes Ortho: Knee replacement Cardiovascular: Pacemaker, AICD - Present Medications Home Medications: Ambulatory Orders Medication Instructions Recorded Confirmed Gabapentin 300 mg PO TID 12/09/17 02/06/18 Methylphenidate HCl 20 mg PO 0800,1400 12/09/17 02/06/18 Carvedilol 6.25 mg PO BID 02/06/18 02/06/18 Spironolactone [Aldactone] 25 mg PO DAILY 02/06/18 02/06/18 Insulin Aspart [NovoLOG] 2 - 10 unit SUBQ 02/12/18 0800,1200,1700,2100 #1 pen Insulin NPH Human [NovoLIN N] 4 unit SUBQ BIDWM #1 pe 02/12/18 Isosorbide Mononitrate ER [Imdur] 15 mg PO DAILY tablet 02/12/18 Aspirin [Adult Aspirin] 81 mg PO DAILY #30 tablet. 02/13/18 Blood Sugar Diagnostic [Glucometer 1 each [facility] #100 strip 02/13/18 Strips] Blood-Glucose Meter [Glucometer] 1 each [facility] #1 each 02/13/18 Bumetanide [Bumex] 1 mg PO TUTHSA tablet 02/13/18 Lancets 1 each [facility]CH[facility] #100 each 02/13/18 hydrALAZINE [Apresoline] 10 mg PO DAILY #30 tablet 02/13/18 Ferrous Gluconate [Iron] 240 mg PO DAILY #14 tablet 09/11/18 Oxycodone HCl/Acetaminophen 1 each PO Q6H PRN #7 tablet 09/11/18 [Percocet 5-325 mg Tablet] - Allergies Allergies/Adverse Reactions: Allergies Allergy/AdvReac Type Severity Reaction Status Date / Time Penicillins Allergy Severe Hives Verified 09/11/18 17:10 propoxyphene napsylate * AdvReac Severe pt reports Verified 09/11/18 17:10 [From Darvocet-N 100] cardiac arrest - Social History Does the pt smoke?: No Smoking Status: Never smoker Does the pt drink ETOH?: No Does the pt have substance abuse?: No - Immunizations Immunizations are current?: No Immunizations: TDAP current <10years - POLST Patient has POLST: Yes POLST Status: Full Code PD ED PE NORMAL - Vitals Vital signs reviewed: Yes - General General: Alert and oriented X 3, Well developed/nourished - HEENT HEENT: PERRL, Moist mucous membranes, Other (Patient will grab the left side of his head and neck whenever he tries to move.) - Neck Neck: Supple, no meningeal sign, Other (Tender palpation upper C-spine. No step-off or deformity.) - Cardiac Cardiac: RRR, Strong equal pulses - Respiratory Respiratory: No respiratory distress, Clear bilaterally - Abdomen Abdomen: Soft, Non tender, Non distended - Rectal Rectal: Other (Normal rectal exam. 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, No motor deficit, No sensory deficit Eye Opening: Spontaneous Motor: Obeys Commands Verbal: Oriented GCS Score: 15 - Psych Psych: Normal mood, Normal affect Results - Vitals Vitals: Vital Signs - 24 hr 09/11/18 09/11/18 09/11/18 17:01 17:28 20:45 Temperature 36.8 C Heart Rate 84 87 70 Respiratory 20 16 20 Rate Blood Pressure 177/83 H 156/91 H 155/90 H O2 Saturation 93 95 98 Oxygen O2 Source [With Activity] Room air O2 Source Room air - Labs Labs: Laboratory Tests 09/11/18 09/11/18 09/11/18 18:49 18:49 18:49 WBC 7.4 RBC 3.94 L Hgb 8.2 L Hct 28.1 L MCV 71.3 L MCH 20.7 L MCHC 29.1 L RDW 20.5 H Plt Count 263 MPV 8.0 Neut # (Auto) 5.4 Lymph # (Auto) 1.0 L [place] # (Auto) 0.8 Eos # (Auto) 0.2 Baso # (Auto) 0.1 Absolute Nucleated RBC 0.00 Nucleated RBC % 0.0 WBC Morphology NORMAL APPEARANCE Platelet Estimate NORMAL (130-450,000) Platelet Morphology NORMAL APPEARANCE RBC Morph Micro Appear 1+ ACANTHOCYTES Sodium 137 Potassium 3.7 Chloride 101 Carbon Dioxide 26 Anion Gap 10.0 BUN 35 H Creatinine 2.0 H Estimated GFR (MDRD) 38 L Glucose 225 H Calcium 9.0 Iron 22 L TIBC 438 % Saturation 5 L Transferrin 313 - Rads (name of study) Head CT Radiology: Prelim report reviewed, EMP read contemporaneously, See rad report (No acute abnormality) Cervical spine CT Radiology: Prelim report reviewed, EMP read contemporaneously, See rad report (No acute abnormality) PD MEDICAL DECISION MAKING - ED course Complexity details: reviewed results, re-evaluated patient, considered differential, d/w patient, d/w family ED course: Patient with a ground-level fall today. Pain well controlled. No acute findings on CT scans. No neurological deficits. Lab testing performed as he is a diabetic and wanted to check for metabolic causes. He has a significant drop in his hemoglobin from prior. Appears to be iron deficiency anemia. Rectal exam is normal. Will start on iron. We will follow-up with his doctor for this. May also be related to his chronic kidney disease. Patient counseled regarding signs and symptoms for which I believe and urgent re-evaluation would be necessary. Patient with good understanding of and agreement to plan and is comfortable going home at this time This document was made in part using voice recognition software. While efforts are made to proofread this document, sound alike and grammatical errors may occur. Departure - Departure Disposition: 01 Home, Self Care Clinical Impression: Neck pain Fall Qualifiers: Encounter type: initial encounter Qualified Code(s): W19.XXXA - Unspecified fall, initial encounter Head injury Qualifiers: Encounter type: initial encounter Qualified Code(s): S09.90XA - Unspecified injury of head, initial encounter Iron deficiency anemia Qualifiers: Iron deficiency anemia type: unspecified iron deficiency Qualified Code(s): D50.9 - Iron deficiency anemia, unspecified Condition: Good Instructions: ED Anemia Iron Deficiency, ED Head Injury Closed Follow-Up: Vick Hicks MD [Primary Care Provider] - Within 1 week Prescriptions: Ferrous Gluconate [Iron] 240 mg PO DAILY #14 tablet Oxycodone HCl/Acetaminophen [Percocet 5-325 mg Tablet] 1 each PO Q6H PRN #7 tablet PRN Reason: pain Comments: We will start you on iron today. You need to follow-up with Dr. Hicks early next week to discuss if you should have an iron infusion or not or possibly a blood transfusion. Your blood counts are very low. Your iron levels are also very low. Return if you worsen. Do not drink alcohol or drive while on narcotic pain medicine. Note that many narcotic pain relievers also contain tylenol/acetaminophen. Please ensure that your total dose of acetaminophen from all sources does not exceed 3 grams (3000mg) per day. You may constipated on this medication, take a stool softener such as "Colace" twice a day while you are on it. Also recommend a [id number] laxative such as senna or MiraLAX any day that you do not have a bowel movement. If you received narcotic pain medication in the emergency department, do not drive or operate machinery for the next 24 hours. Discharge Date/Time: 09/11/18 20:50
[2018-09-11 20:46] VITALS: BP 155/90
== END 2018-09-11 20:50 | disposition home or self-care (01) ==
LOC: ED 16:50
DX: S09.90XA Unspecified injury of head, initial encounter (principal); M54.2 Cervicalgia; W01.10XA Fall on same level from slipping, tripping and stumbling with subsequent striking against unspecified object, initial encounter; Y93.89 Activity, other specified; Y92.003 Bedroom of unspecified non-institutional (private) residence as the place of occurrence of the external cause; D50.9 Iron deficiency anemia, unspecified; E11.22 Type 2 diabetes mellitus with diabetic chronic kidney disease; E11.42 Type 2 diabetes mellitus with diabetic polyneuropathy; I13.0 Hypertensive heart and chronic kidney disease with heart failure and stage 1 through stage 4 chronic kidney disease, or unspecified chronic kidney disease; N18.9 Chronic kidney disease, unspecified; I50.9 Heart failure, unspecified; Z79.4 Long term (current) use of insulin; Z95.810 Presence of automatic (implantable) cardiac defibrillator; Z86.718 Personal history of other venous thrombosis and embolism; Z79.82 Long term (current) use of aspirin
CPT/HCPCS: 36415; 70450; 72125; 80048; 83540; 84466; 85025; 99283; A9270

== ENCOUNTER 2018-09-24 19:22 | Emergency (ER) | payer MEDICARE, MEDICAID ==
[2018-09-24] MEDS ORDERED: BISACODYL 5 MG TABLET PO STA (19:45)
[2018-09-24] MEDS ORDERED: LACTULOSE 10 GM /15 ML UDC PO STA (19:45)
--- NOTE | 2018-09-24 19:47 | ED Physician Documentation ---
PD HPI ABD PAIN - Stated complaint Stated Complaint: MALE - Chief complaint Chief Complaint: Abd Pain - History obtained from History obtained from: Patient, Family (son) - History of Present Illness Timing - onset: Other (This is an 88-year-old gentleman who has not had a bowel movement for about 3 days. Has been trying to prune juice and more recently today took an enema and magnesium citrate without any output. He complains of abdominal and rectal pressure.) Review of Systems Ten Systems: 10 systems reviewed and negative Constitutional: denies: Fever, Chills GI: reports: Constipation. denies: Abdominal Swelling, Diarrhea, Hematemesis, Bloody / black stool PD PAST MEDICAL HISTORY - Past Medical History Cardiovascular: Congestive heart failure, Hypertension, Coronary artery disease, Deep vein thrombosis, [place], Atrial fibrillation Respiratory: COPD, Shortness of breath Neuro: Peripheral neuropathy Endocrine/Autoimmune: Type 2 diabetes GI: None : Benign prostate hypertrophy, Renal insuffiency HEENT: Chronic hearing loss Psych: None Musculoskeletal: Osteoarthritis Derm: None - Past Surgical History Past Surgical History: Yes Ortho: Knee replacement Cardiovascular: Pacemaker, AICD - Present Medications Home Medications: Ambulatory Orders Medication Instructions Recorded Confirmed Gabapentin 300 mg PO TID 12/09/17 02/06/18 Methylphenidate HCl 20 mg PO 0800,1400 12/09/17 02/06/18 Carvedilol 6.25 mg PO BID 02/06/18 02/06/18 Spironolactone [Aldactone] 25 mg PO DAILY 02/06/18 02/06/18 Insulin Aspart [NovoLOG] 2 - 10 unit SUBQ 02/12/18 0800,1200,1700,2100 #1 pen Insulin NPH Human [NovoLIN N] 4 unit SUBQ BIDWM #1 pe 02/12/18 Isosorbide Mononitrate ER [Imdur] 15 mg PO DAILY tablet 02/12/18 Aspirin [Adult Aspirin] 81 mg PO DAILY #30 tablet. 02/13/18 Blood Sugar Diagnostic [Glucometer 1 each [facility] #100 strip 02/13/18 Strips] Blood-Glucose Meter [Glucometer] 1 each [facility] #1 each 02/13/18 Bumetanide [Bumex] 1 mg PO TUTHSA tablet 02/13/18 Lancets 1 each [facility] #100 each 02/13/18 hydrALAZINE [Apresoline] 10 mg PO DAILY #30 tablet 02/13/18 Ferrous Gluconate [Iron] 240 mg PO DAILY #14 tablet 09/11/18 Oxycodone HCl/Acetaminophen 1 each PO Q6H PRN #7 tablet 09/11/18 [Percocet 5-325 mg Tablet] - Allergies Allergies/Adverse Reactions: Allergies Allergy/AdvReac Type Severity Reaction Status Date / Time Penicillins Allergy Severe Hives Verified 09/24/18 19:34 propoxyphene napsylate * AdvReac Severe pt reports Verified 09/24/18 19:34 [From [facility]N 100] cardiac arrest - Social History Does the pt smoke?: No Smoking Status: Never smoker Does the pt drink ETOH?: No Does the pt have substance abuse?: No - Immunizations Immunizations are current?: No Immunizations: TDAP current <10years - POLST Patient has POLST: Yes POLST Status: Full Code PD ED PE NORMAL - Vitals Vital signs reviewed: Yes - General General: Alert and oriented X 3, No acute distress - Abdomen Abdomen: Normal bowel sounds, Soft, Non tender - Rectal Rectal: Other (No fecal impaction within fingers reach, brown liquid stool in the vault.) - Back Back: No CVA TTP, No spinal TTP - Neuro Neuro: Alert and oriented X 3, Normal speech Results - Vitals Vitals: Vital Signs - 24 hr 09/24/18 09/24/18 19:25 20:33 Temperature 36.2 C L Heart Rate 79 Respiratory 18 Rate Blood Pressure 172/72 H O2 Saturation 95 Oxygen O2 Source [With Activity] Room air O2 Source Room air PD MEDICAL DECISION MAKING - ED course ED course: 88-year-old gentleman presents with constipation. There was no fecal impaction on examination. He was administered lactulose and Dulcolax with no response this was followed by milk of magnesia after which he had an explosive bowel movement with resolution of his symptoms. On reexamination prior to discharge he was nontender and felt better. Departure - Departure Disposition: 01 Home, Self Care Clinical Impression: Constipation Qualifiers: Constipation type: unspecified constipation type Qualified Code(s): K59.00 - Constipation, unspecified Condition: Good Record reviewed to determine appropriate education?: Yes Instructions: ED Constipation Comments: Return for significant pain, recurrence of symptoms or other new concerns.
[2018-09-24] MEDS ORDERED: MAGNESIUM HYDROXIDE 2,400 MG/30 ML UDC PO STA (20:28)
[2018-09-24 21:44] VITALS: BP 153/91
== END 2018-09-24 21:45 | disposition home or self-care (01) ==
LOC: ED 19:22
DX: K59.00 Constipation, unspecified (principal); I10 Essential (primary) hypertension; E11.42 Type 2 diabetes mellitus with diabetic polyneuropathy; Z79.4 Long term (current) use of insulin; Z79.82 Long term (current) use of aspirin
CPT/HCPCS: 99282; 99284; A9270

== ENCOUNTER 2019-06-28 13:15 | Emergency (ER) | payer MEDICARE ==
[2019-06-28] MEDS ORDERED: BUMETANIDE 1 MG/4 ML VIAL IVP STA (14:45)
--- NOTE | 2019-06-28 14:46 | ED Physician Documentation ---
PD HPI DYSPNEA - Stated complaint Stated Complaint: DIFFICULTY BREATHING - Chief complaint Chief Complaint: Resp - History obtained from History obtained from: Patient, Family (son) - History of Present Illness Timing - onset: How many days ago (3) Timing - onset during: Rest, Light activity Timing - duration: Days (3) Timing - details: Gradual onset, Still present Inciting event(s): Other (slowly more trouble breathing) Improved by: O2, Rest Worsened by: Exertion, Laying flat, Coughing Associated symptoms: Bilateral edema. 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 Over the past 3 days he has had increasing shortness of breath and feels that he is retaining fluid he has even got some fluid retained on his abdomen to where he is feeling bloated and uncomfortable. He has all had all the symptoms previously. He has been in to see his regular doctor about 10 days ago for medication refills. He has not had URI. Review of Systems Constitutional: denies: Fever Eyes: denies: Decreased vision Ears: denies: Ear pain Nose: denies: Congestion Throat: denies: Sore throat Cardiac: denies: Chest pain / pressure, Palpitations Respiratory: reports: Dyspnea. denies: Cough GI: reports: Abdominal Pain, Nausea. denies: Vomiting, Constipation, Diarrhea : denies: Dysuria, Frequency Skin: denies: Rash Musculoskeletal: denies: Neck pain, Back pain, Extremity pain Neurologic: reports: Generalized weakness. denies: Focal weakness, Numbness PD PAST MEDICAL HISTORY - Past Medical History Cardiovascular: Congestive heart failure, Hypertension, Coronary artery disease, Deep vein thrombosis, [place], Atrial fibrillation Respiratory: COPD, Shortness of breath Neuro: Peripheral neuropathy Endocrine/Autoimmune: Type 2 diabetes GI: None : Benign prostate hypertrophy, Renal insuffiency HEENT: Chronic hearing loss Psych: None Musculoskeletal: Osteoarthritis Derm: None - Past Surgical History Past Surgical History: Yes Ortho: Knee replacement Cardiovascular: Pacemaker, AICD - Present Medications Home Medications: Ambulatory Orders Medication Instructions Recorded Confirmed Gabapentin 300 mg PO TID 12/09/17 02/06/18 Methylphenidate HCl 20 mg PO 0800,1400 12/09/17 02/06/18 Spironolactone [Aldactone] 25 mg PO DAILY 02/06/18 02/06/18 carvediloL [Carvedilol] 6.25 mg PO BID 02/06/18 02/06/18 Insulin Aspart [NovoLOG] 2 - 10 unit SUBQ 02/12/18 0800,1200,1700,2100 #1 pen Insulin NPH Human [NovoLIN N] 4 unit SUBQ BIDWM #1 pe 02/12/18 Isosorbide Mononitrate ER [Imdur] 15 mg PO DAILY tablet 02/12/18 Aspirin [Adult Aspirin] 81 mg PO DAILY #30 tablet. 02/13/18 Blood Sugar Diagnostic [Glucometer 1 each [facility] #100 strip 02/13/18 Strips] Blood-Glucose Meter [Glucometer] 1 each [facility] #1 each 02/13/18 Bumetanide [Bumex] 1 mg PO TUTHSA tablet 02/13/18 Lancets 1 each [facility] #100 each 02/13/18 hydrALAZINE [Apresoline] 10 mg PO DAILY #30 tablet 02/13/18 Ferrous Gluconate [Iron] 240 mg PO DAILY #14 tablet 09/11/18 Oxycodone HCl/Acetaminophen 1 each PO Q6H PRN #7 tablet 09/11/18 [Percocet 5-325 mg Tablet] - Allergies Allergies/Adverse Reactions: Allergies Allergy/AdvReac Type Severity Reaction Status Date / Time Penicillins Allergy Severe Hives Verified 06/28/19 13:39 propoxyphene napsylate * AdvReac Severe pt reports Verified 06/28/19 13:39 [From Darvocet-N 100] cardiac arrest - Social History Does the pt smoke?: No Smoking Status: Never smoker Does the pt drink ETOH?: No Does the pt have substance abuse?: No - Immunizations Immunizations are current?: No Immunizations: TDAP current <10years - POLST Patient has POLST: Yes POLST Status: Full Code PD ED PE NORMAL - Vitals Vital signs reviewed: Yes (normal ) - General General: Alert and oriented X 3, No acute distress, Well developed/nourished - HEENT HEENT: Atraumatic, PERRL, EOMI - Neck Neck: Supple, no meningeal sign, No bony TTP - Cardiac Cardiac: RRR, Other (2/6 holosystolic murmer at LSB) - Respiratory Respiratory: No respiratory distress, Other (Diminished breath sounds at the bases bilaterally) - Abdomen Abdomen: Soft, Other (The abdomen is mildly distended minimally tender there does appear to be some fluid retention.) - Back Back: No CVA TTP, No spinal TTP - Derm Derm: Normal color, Warm and dry, No rash - Extremities Extremities: Other (Both the lower extremities are wrapped and there is no obvious edema.) - Neuro Neuro: 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, No motor deficit, No sensory deficit, Normal speech Eye Opening: Spontaneous Motor: Obeys Commands Verbal: Oriented GCS Score: 15 Results - Vitals Vitals: Vital Signs - 24 hr 06/28/19 06/28/19 06/28/19 13:23 14:38 15:49 Temperature 36.2 C L Heart Rate 64 60 60 Respiratory 22 16 13 Rate Blood Pressure 138/66 H 137/73 H 153/79 H O2 Saturation 96 95 94 06/28/19 06/28/19 06/28/19 16:14 16:15 17:20 Temperature Heart Rate 84 60 Respiratory 16 14 Rate Blood Pressure 130/64 131/67 H O2 Saturation 87 L 92 94 Oxygen O2 Source [] Room air O2 Source Nasal cannula - EKG (time done) 1334 Rate: Rate (enter#) (60) Rhythm: Paced Compare to prior EKG: Changed from prior EKG ([facility] 02-05-2018 rhythm has changed to paced) Computer interpretation: Agree with computer - Labs Labs: Microbiology 06/28/19 17:30 Occult Blood - Final Stool Laboratory Tests 06/28/19 06/28/19 06/28/19 11:10 13:50 13:50 WBC 8.4 RBC 4.01 L Hgb 6.9 L* Hct 27.3 L MCV 68.1 L MCH 17.2 L MCHC 25.3 L RDW 24.2 H Plt Count 288 MPV TNP Neut # (Auto) 6.4 Lymph # (Auto) 0.8 L [place] # (Auto) 1.1 H Eos # (Auto) 0.1 Baso # (Auto) 0.1 Absolute Nucleated RBC 0.10 Nucleated RBC % 1.2 Manual Slide Review Indicated Platelet Estimate NORMAL (130-450,000) Platelet Morphology NORMAL APPEARANCE RBC Morph Micro Appear 2+ HELMET CELLS Sodium 138 Potassium 4.9 Chloride 107 Carbon Dioxide 21 Anion Gap 10.0 BUN 51 H Creatinine 2.0 H Estimated GFR (MDRD) 38 L Glucose 119 H Calcium 8.8 Total Bilirubin 4.5 H AST 38 ALT 18 Alkaline Phosphatase 126 H Troponin I High Sens B-Natriuretic Peptide Total Protein 7.1 Albumin 3.6 Globulin 3.5 Albumin/Globulin Ratio 1.0 Lipase 28 Urine Color YELLOW Urine Clarity CLEAR Urine pH 6.0 Ur Specific [place] 1.015 Urine Protein NEGATIVE Urine Glucose (UA) NEGATIVE Urine Ketones NEGATIVE Urine Occult Blood SMALL H Urine Nitrite NEGATIVE Urine Bilirubin NEGATIVE Urine Urobilinogen 1 (NORMAL) Ur Leukocyte Esterase NEGATIVE Urine RBC 0-5 Urine WBC 0-3 Ur Squamous Epith Cells RARE Squamous Urine Bacteria None Seen Ur Microscopic Review INDICATED Urine Culture Comments NOT INDICATED Blood Type Blood Type Recheck Antibody Screen 06/28/19 06/28/19 06/28/19 13:50 15:00 15:00 WBC RBC Hgb Hct MCV MCH MCHC RDW Plt Count MPV Neut # (Auto) Lymph # (Auto) [place] # (Auto) Eos # (Auto) Baso # (Auto) Absolute Nucleated RBC Nucleated RBC % Manual Slide Review Platelet Estimate Platelet Morphology RBC Morph Micro Appear Sodium Potassium Chloride Carbon Dioxide Anion Gap BUN Creatinine Estimated GFR (MDRD) Glucose Calcium Total Bilirubin AST ALT Alkaline Phosphatase Troponin I High Sens 336.2 H* B-Natriuretic Peptide 2428 H Total Protein Albumin Globulin Albumin/Globulin Ratio Lipase Urine Color Urine Clarity Urine pH Ur Specific [place] Urine Protein Urine Glucose (UA) Urine Ketones Urine Occult Blood Urine Nitrite Urine Bilirubin Urine Urobilinogen Ur Leukocyte Esterase Urine RBC Urine WBC Ur Squamous Epith Cells Urine Bacteria Ur Microscopic Review Urine Culture Comments Blood Type Blood Type Recheck O NEGATIVE Antibody Screen 06/28/19 06/28/19 16:44 16:44 WBC RBC Hgb Hct MCV MCH MCHC RDW Plt Count MPV Neut # (Auto) Lymph # (Auto) [place] # (Auto) Eos # (Auto) Baso # (Auto) Absolute Nucleated RBC Nucleated RBC % Manual Slide Review Platelet Estimate Platelet Morphology RBC Morph Micro Appear Sodium Potassium Chloride Carbon Dioxide Anion Gap BUN Creatinine Estimated GFR (MDRD) Glucose Calcium Total Bilirubin AST ALT Alkaline Phosphatase Troponin I High Sens 365.5 H* B-Natriuretic Peptide Total Protein Albumin Globulin Albumin/Globulin Ratio Lipase Urine Color Urine Clarity Urine pH Ur Specific [place] Urine Protein Urine Glucose (UA) Urine Ketones Urine Occult Blood Urine Nitrite Urine Bilirubin Urine Urobilinogen Ur Leukocyte Esterase Urine RBC Urine WBC Ur Squamous Epith Cells Urine Bacteria Ur Microscopic Review Urine Culture Comments Blood Type O NEGATIVE Blood Type Recheck Antibody Screen NEGATIVE - Rads (name of study) chest Radiology: Prelim report reviewed (Impression: Mild pulmonary edema. Stable enlargement of cardiopulmonary silhouette.), EMP read indepedently, See rad report Procedures - IVC sono (time) 1440 Bedside IVC sono: IVC measures (cm) (2.83), High CVP, Fluid overload PD MEDICAL DECISION MAKING - ED course Complexity details: considered differential, d/w patient, d/w family, d/w php consultant ([facility] at [facility] recommends transfer for transfusion and the trop abnormality is likely secondary to the amyloid and not neccessarily demand ischemia. Recommneds transfer, transfusion and conservative treatment otherwise. 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 His troponin is elevated in the 300 range. A repeat is elevated an additional 30 points and transfer is sought to [facility]. Dr. Nova is consulted and the case recommends transfer. He will not need to be cathed. He is guiac negative and his hct does not match his hgb. Suspicion of iron deficiency. Departure - Departure Disposition: 02 Transfer Acute Care Hosp Clinical Impression: Acute CHF (congestive heart failure) Qualifiers: Heart failure type: unspecified Qualified Code(s): I50.9 - Heart failure, unspecified Anemia Qualifiers: Anemia type: unspecified type Qualified Code(s): D64.9 - Anemia, unspecified
[2019-06-28 14:59] LABS: BASOPHILS # (AUTO) 0.1 10^3/uL (0.0-0.1); BASOPHILS % (AUTO) 0.8 %; EOSINOPHILS # (AUTO) 0.1 10^3/uL (0.0-0.7); EOSINOPHILS % (AUTO) 1.1 %; LYMPHOCYTES # (AUTO) 0.8 10^3/uL (1.5-3.5); LYMPHOCYTES % (AUTO) 9.6 %; MEAN CORPUSCULAR HEMOGLOBIN 17.2 pg (27.0-31.0); MEAN CORPUSCULAR HGB CONC 25.3 g/dL (32.0-36.0); MEAN CORPUSCULAR VOLUME 68.1 fL (80.0-94.0); MONOCYTES # (AUTO) 1.1 10^3/uL (0.0-1.0); MONOCYTES % (AUTO) 12.8 %; NEUTROPHILS # (AUTO) 6.4 10^3/uL (1.5-6.6); NEUTROPHILS % (AUTO) 75.2 %; PLT - PLATELET COUNT 288 10^3/uL (130-450); RED BLOOD COUNT 4.01 10^6/uL (4.70-6.10); RED CELL DISTRIBUTION WIDTH 24.2 % (12.0-15.0); WHITE BLOOD COUNT 8.4 x10^3/uL (4.8-10.8)
[2019-06-28 15:04] LABS: HGB - HEMOGLOBIN 6.9 g/dL (14.0-18.0)
[2019-06-28 15:08] LABS: ALBUMIN 3.6 g/dL (3.2-5.5); BILIRUBIN,TOTAL 4.5 mg/dL (0.2-1.0); CALCIUM 8.8 mg/dL (8.5-10.3); TOTAL PROTEIN 7.1 g/dL (6.7-8.2)
[2019-06-28 15:37] LABS: PLATELET ESTIMATE, MANUAL NORMAL (130-450,000) (NORMAL); PLATELET MORPHOLOGY NORMAL APPEARANCE (NORMAL)
--- NOTE | 2019-06-28 15:37 | XRAY Report ---
Reason: chest pain Procedure Date: 06/28/2019 Accession Number: [id number] / [id number] Procedure: XR - Chest 1 View X-Ray CPT Code: 52684 Final Report FULL RESULT: EXAM: CHEST RADIOGRAPHY EXAM DATE: 06/28/2019 02:56 PM. CLINICAL HISTORY: Chest pain. COMPARISON: CHEST 1 VIEW 02/05/2018 10:01 PM. TECHNIQUE: 1 view. FINDINGS: Lungs/Pleura: A calcified granuloma in right lower lobe. Mild pulmonary edema. No focal opacities evident. No pleural effusion. No pneumothorax. Mediastinum: Dual-lead ICD device proximal left chest wall with stable moderate cardiac enlargement. Other: None. IMPRESSION: Mild pulmonary edema. Stable enlargement of cardiopulmonary silhouette. RADIA
[2019-06-28] MEDS ORDERED: HYDROmorphone 1 MG/ML CARPUJECT IVP STA (15:38)
[2019-06-28] MEDS ORDERED: ONDANSETRON 4 MG/2 ML VIAL IVP STA (15:38)
[2019-06-28 15:55] LABS: BILIRUBIN,URINE NEGATIVE (NEGATIVE); GLUCOSE, URINE (UA) NEGATIVE (NEGATIVE); KETONES,URINE (UA) NEGATIVE (NEGATIVE); LEUKOCYTE ESTERASE, URINE NEGATIVE (NEGATIVE); NITRITE,URINE NEGATIVE (NEGATIVE); OCCULT BLOOD,URINE SMALL (NEGATIVE); PROTEIN,URINE NEGATIVE (NEGATIVE); UROBILINOGEN,URINE 1 (NORMAL) E.U./dL (NORMAL)
[2019-06-28 15:57] LABS: CLARITY,URINE CLEAR (CLEAR)
[2019-06-28 16:04] LABS: BACTERIA,URINE None Seen /HPF (None Seen); RBC,URINE 0-5 /HPF (0-5); SQUAMOUS EPITHELIAL CELL,UR RARE Squamous (<= Few)
[2019-06-28 19:21] VITALS: BP 127/67
== END 2019-06-28 19:33 | disposition short-term general hospital (02) ==
LOC: ED 13:15
DX: D64.9 Anemia, unspecified (principal); I43 Cardiomyopathy in diseases classified elsewhere; E85.4 Organ-limited amyloidosis; R79.89 Other specified abnormal findings of blood chemistry; I13.0 Hypertensive heart and chronic kidney disease with heart failure and stage 1 through stage 4 chronic kidney disease, or unspecified chronic kidney disease; E11.22 Type 2 diabetes mellitus with diabetic chronic kidney disease; N18.9 Chronic kidney disease, unspecified; I50.9 Heart failure, unspecified; Z79.4 Long term (current) use of insulin
CPT/HCPCS: 36415; 71045; 80053; 81001; 82272; 83690; 83880; 84484; 85025; 86850; 86900; 86901; 93005; 96374; 96375; 99285; J1170; 81003; 82270; 82274; 87086

== ENCOUNTER 2019-06-28 19:17 | Outpatient (CLI) | payer MEDICARE | END 2019-06-28 19:18 | disposition short-term general hospital (02) | LOC: EMS 19:17 | PROVIDERS: ATTEND Surgery | DX: R06.02 Shortness of breath (principal); R53.1 Weakness; R52 Pain, unspecified | CPT/HCPCS: A0425; A0428 ==

== ENCOUNTER 2019-07-19 10:28 | Emergency (ER) | payer MEDICARE ==
[2019-07-19] MEDS ORDERED: TRANEXAMIC ACID 1,000 MG/10 ML VIAL NAS STA (11:26)
[2019-07-19 11:45] LABS: BASOPHILS # (AUTO) 0.1 10^3/uL (0.0-0.1); EOSINOPHILS # (AUTO) 0.2 10^3/uL (0.0-0.7); EOSINOPHILS % (AUTO) 2.4 %; HGB - HEMOGLOBIN 8.4 g/dL (14.0-18.0); LYMPHOCYTES # (AUTO) 0.9 10^3/uL (1.5-3.5); LYMPHOCYTES % (AUTO) 12.4 %; MEAN CORPUSCULAR HEMOGLOBIN 22.3 pg (27.0-31.0); MEAN CORPUSCULAR HGB CONC 27.8 g/dL (32.0-36.0); MEAN CORPUSCULAR VOLUME 80.3 fL (80.0-94.0); MONOCYTES # (AUTO) 0.7 10^3/uL (0.0-1.0); MONOCYTES % (AUTO) 9.5 %; NEUTROPHILS # (AUTO) 5.2 10^3/uL (1.5-6.6); NEUTROPHILS % (AUTO) 74.4 %; PLT - PLATELET COUNT 200 10^3/uL (130-450); RED BLOOD COUNT 3.76 10^6/uL (4.70-6.10)
[2019-07-19 11:49] LABS: INR 1.4 (0.8-1.2); PT - PROTHROMBIN TIME 16.1 secs (9.9-12.6)
--- NOTE | 2019-07-19 11:49 | ED Physician Documentation ---
PD HPI HEENT - Stated complaint Stated Complaint: NOSE BLEED - Chief complaint Chief Complaint: Heent - History obtained from History obtained from: Patient, Family - History of Present Illness Timing - onset: Today Timing - duration: Hours (1) Timing - details: Intermittant Location: Nose (he says right nostril had bled intermittently for couple of weeks, just minute or so at a time. This morning it started with just getting up, no noted injury/blowing. It continued to bleed despite pressure/pinching.) Associated symptoms: Congestion, Rhinorrhea (has ongoing nasal congestion often. No purulence to it.). No: Fever Review of Systems Constitutional: denies: Fever, Chills Nose: reports: Rhinorrhea / runny nose, Congestion Throat: denies: Sore throat Respiratory: denies: Cough Endocrine: reports: Easy bruising / bleeding PD PAST MEDICAL HISTORY - Past Medical History Past Medical History: Yes Cardiovascular: Congestive heart failure, Hypertension, Coronary artery disease, Deep vein thrombosis, [place], Atrial fibrillation Respiratory: COPD, Shortness of breath Neuro: Peripheral neuropathy Endocrine/Autoimmune: Type 2 diabetes GI: None : Benign prostate hypertrophy, Renal insuffiency HEENT: Chronic hearing loss Psych: None Musculoskeletal: Osteoarthritis Derm: None - Past Surgical History Past Surgical History: Yes Ortho: Knee replacement Cardiovascular: Pacemaker, AICD - Present Medications Home Medications: Ambulatory Orders Medication Instructions Recorded Confirmed Gabapentin 300 mg PO TID 12/09/17 02/06/18 Methylphenidate HCl 20 mg PO 0800,1400 12/09/17 02/06/18 Spironolactone [Aldactone] 25 mg PO DAILY 02/06/18 02/06/18 carvediloL [Carvedilol] 6.25 mg PO BID 02/06/18 02/06/18 Insulin Aspart [NovoLOG] 2 - 10 unit SUBQ 02/12/18 0800,1200,1700,2100 #1 pen Insulin NPH Human [NovoLIN N] 4 unit SUBQ BIDWM #1 pe 02/12/18 Isosorbide Mononitrate ER [Imdur] 15 mg PO DAILY tablet 02/12/18 Aspirin [Adult Aspirin] 81 mg PO DAILY #30 tablet. 02/13/18 Blood Sugar Diagnostic [Glucometer 1 each [facility] #100 strip 02/13/18 Strips] Blood-Glucose Meter [Glucometer] 1 each ACHS #1 each 02/13/18 Bumetanide [Bumex] 1 mg PO TUTHSA tablet 02/13/18 Lancets 1 each [facility] #100 each 02/13/18 hydrALAZINE [Apresoline] 10 mg PO DAILY #30 tablet 02/13/18 Ferrous Gluconate [Iron] 240 mg PO DAILY #14 tablet 09/11/18 Oxycodone HCl/Acetaminophen 1 each PO Q6H PRN #7 tablet 09/11/18 [Percocet 5-325 mg Tablet] - Allergies Allergies/Adverse Reactions: Allergies Allergy/AdvReac Type Severity Reaction Status Date / Time Penicillins Allergy Severe Hives Verified 07/19/19 10:42 propoxyphene napsylate * AdvReac Severe pt reports Verified 07/19/19 10:42 [From [facility]N 100] cardiac arrest - Social History Does the pt smoke?: No Smoking Status: Never smoker Does the pt drink ETOH?: No Does the pt have substance abuse?: No - Immunizations Immunizations are current?: No Immunizations: TDAP current <10years - POLST Patient has POLST: Yes POLST Status: Full Code PD ED PE NORMAL - Vitals Vital signs reviewed: Yes - General General: Alert and oriented X 3, No acute distress, Well developed/nourished - HEENT HEENT: Ears normal, Moist mucous membranes, Pharynx benign, Other (right anterior nare with mild ongoing bleeding from visible discrete site with local inflammation but no mucosal erosion. ) - Neck Neck: Supple, no meningeal sign, No adenopathy - Respiratory Respiratory: Clear bilaterally - Derm Derm: Normal color, Warm and dry - Extremities Extremities: No calf tenderness / cord, Other (1+ edema both legs) Results - Vitals Vitals: Vital Signs - 24 hr 07/19/19 07/19/19 10:40 12:00 Temperature 36.4 C L Heart Rate 56 L 60 Respiratory 17 13 Rate Blood Pressure 131/67 H 122/62 O2 Saturation 96 97 Oxygen O2 Source [With Activity] Room air O2 Source Room air - Labs Labs: Laboratory Tests 07/19/19 07/19/19 07/19/19 11:35 11:35 11:35 WBC 7.0 RBC 3.76 L Hgb 8.4 L Hct 30.2 L MCV 80.3 MCH 22.3 L MCHC 27.8 L Plt Count 200 Neut # (Auto) 5.2 Lymph # (Auto) 0.9 L [place] # (Auto) 0.7 Eos # (Auto) 0.2 Baso # (Auto) 0.1 Absolute Nucleated RBC 0.00 Nucleated RBC % 0.0 Manual Slide Review Indicated Platelet Estimate NORMAL (130-450,000) Platelet Morphology NORMAL APPEARANCE RBC Morph Micro Appear 3+ HYPOCHROMASIA PT 16.1 H INR 1.4 H APTT 35.5 H Sodium 137 Potassium 3.7 Chloride 101 Carbon Dioxide 27 Anion Gap 9.0 BUN 36 H Creatinine 1.9 H Estimated GFR (MDRD) 41 L Glucose 155 H Calcium 8.0 L Total Bilirubin 3.2 H AST 45 H ALT 28 Alkaline Phosphatase 193 H B-Natriuretic Peptide Total Protein 6.9 Albumin 3.5 Globulin 3.4 Albumin/Globulin Ratio 1.0 Lipase 24 07/19/19 11:35 WBC RBC Hgb Hct MCV MCH MCHC Plt Count Neut # (Auto) Lymph # (Auto) [place] # (Auto) Eos # (Auto) Baso # (Auto) Absolute Nucleated RBC Nucleated RBC % Manual Slide Review Platelet Estimate Platelet Morphology RBC Morph Micro Appear PT INR APTT Sodium Potassium Chloride Carbon Dioxide Anion Gap BUN Creatinine Estimated GFR (MDRD) Glucose Calcium Total Bilirubin AST ALT Alkaline Phosphatase B-Natriuretic Peptide 2044 H Total Protein Albumin Globulin Albumin/Globulin Ratio Lipase Procedures - Epistaxis Site: Right, Anterior Preparation: Clamp / pressure applied, Other (TXA) Treatment: Silver Nitrate, Packing inserted Other: Observed - no bleeding, Pt tolerated well, O2 sat WNL PD MEDICAL DECISION MAKING - ED course Complexity details: considered differential (local anterior nosebleed, able to cauterize it. Blood count is low, with history of anemia. Not too low. ), d/w patient Departure - Departure Disposition: 01 Home, Self Care Clinical Impression: Epistaxis Anemia Qualifiers: Anemia type: unspecified type Qualified Code(s): D64.9 - Anemia, unspecified Condition: Stable Record reviewed to determine appropriate education?: Yes Instructions: ED Nosebleed Follow-Up: Vick Hicks MD [Primary Care Provider] - Comments: Leave the foam packing in the nostril through the afternoon and into the evening. Take it out later this evening or before bed. Pull it gently to come out. Return if recurrent bleeding. Otherwise this should heal up okay. Discharge Date/Time: 07/19/19 12:46
[2019-07-19 11:56] LABS: PARTIAL THROMBOPLASTIN TIME 35.5 secs (24.9-33.3)
[2019-07-19 11:57] LABS: ALBUMIN 3.5 g/dL (3.2-5.5); BILIRUBIN,TOTAL 3.2 mg/dL (0.2-1.0); CREATININE 1.9 mg/dL (0.6-1.2); TOTAL PROTEIN 6.9 g/dL (6.7-8.2)
[2019-07-19 12:05] VITALS: BP 122/62
[2019-07-19 12:06] LABS: PLATELET ESTIMATE, MANUAL NORMAL (130-450,000) (NORMAL); PLATELET MORPHOLOGY NORMAL APPEARANCE (NORMAL)
== END 2019-07-19 12:46 | disposition home or self-care (01) ==
LOC: ED 10:28
DX: R04.0 Epistaxis (principal); D64.9 Anemia, unspecified; I11.0 Hypertensive heart disease with heart failure; I50.9 Heart failure, unspecified; E11.42 Type 2 diabetes mellitus with diabetic polyneuropathy; Z79.4 Long term (current) use of insulin; Z79.82 Long term (current) use of aspirin
CPT/HCPCS: 30901; 36415; 80053; 83690; 83880; 85025; 85610; 85730; 99282; 99283

== ENCOUNTER 2019-11-27 16:06 | Emergency (ER) | payer MEDICARE ==
[2019-11-27] MEDS ORDERED: COCAINE 4 ML BOTTLE TOP STA (16:14)
--- NOTE | 2019-11-27 16:15 | ED Physician Documentation ---
PD HPI HEENT - Stated complaint Stated Complaint: NOSE BLEEDS - Chief complaint Chief Complaint: Heent - History obtained from History obtained from: Patient (89-year-old gentleman on an unknown anti- coagulant presents with persistent right-sided nosebleeds for several weeks on and off. Today it was plugged up. No pain no. He has a history of this.) PD PAST MEDICAL HISTORY - Past Medical History Cardiovascular: Congestive heart failure, Hypertension, Coronary artery disease, Deep vein thrombosis, [place], Atrial fibrillation Respiratory: COPD, Shortness of breath Neuro: Peripheral neuropathy Endocrine/Autoimmune: Type 2 diabetes GI: None : Benign prostate hypertrophy, Renal insuffiency HEENT: Chronic hearing loss Psych: None Musculoskeletal: Osteoarthritis Derm: None - Past Surgical History Past Surgical History: Yes Ortho: Knee replacement Cardiovascular: Pacemaker, AICD - Present Medications Home Medications: Ambulatory Orders Medication Instructions Recorded Confirmed Gabapentin 300 mg PO TID 12/09/17 02/06/18 Methylphenidate HCl 20 mg PO 0800,1400 12/09/17 02/06/18 Spironolactone [Aldactone] 25 mg PO DAILY 02/06/18 02/06/18 carvediloL [Carvedilol] 6.25 mg PO BID 02/06/18 02/06/18 Insulin Aspart [NovoLOG] 2 - 10 unit SUBQ 02/12/18 0800,1200,1700,2100 #1 pen Insulin NPH Human [NovoLIN N] 4 unit SUBQ BIDWM #1 pe 02/12/18 Isosorbide Mononitrate ER [Imdur] 15 mg PO DAILY tablet 02/12/18 Aspirin [Adult Aspirin] 81 mg PO DAILY #30 tablet. 02/13/18 Blood Sugar Diagnostic [Glucometer 1 each [facility] #100 strip 02/13/18 Strips] Blood-Glucose Meter [Glucometer] 1 each [facility] #1 each 02/13/18 Bumetanide [Bumex] 1 mg PO TUTHSA tablet 02/13/18 Lancets 1 each [facility] #100 each 02/13/18 hydrALAZINE [Apresoline] 10 mg PO DAILY #30 tablet 02/13/18 Ferrous Gluconate [Iron] 240 mg PO DAILY #14 tablet 09/11/18 Oxycodone HCl/Acetaminophen 1 each PO Q6H PRN #7 tablet 09/11/18 [Percocet 5-325 mg Tablet] - Allergies Allergies/Adverse Reactions: Allergies Allergy/AdvReac Type Severity Reaction Status Date / Time Penicillins Allergy Severe Hives Verified 11/27/19 16:08 propoxyphene napsylate * AdvReac Severe pt reports Verified 11/27/19 16:08 [From [facility]-N 100] cardiac arrest - Social History Does the pt smoke?: No Smoking Status: Never smoker Does the pt drink ETOH?: No Does the pt have substance abuse?: No - Immunizations Immunizations are current?: No Immunizations: TDAP current <10years - POLST Patient has POLST: Yes POLST Status: Full Code PD ED PE NORMAL - Vitals Vital signs reviewed: Yes - General General: Alert and oriented X 3, No acute distress - HEENT HEENT: Other (Sequela of recent active bleeding from Kiesselbach's plexus with a knuckle of the vein exposed but not actively bleeding on initial examination.) - Neck Neck: Supple, no meningeal sign, No bony TTP - Neuro Neuro: Alert and oriented X 3, Normal speech. No: occ therapist 2-12 intact (ALUTIIQ) Results - Vitals Vitals: Vital Signs - 24 hr 11/27/19 11/27/19 11/27/19 16:08 18:30 18:35 Temperature 36.8 C 37.0 C 36.5 C Heart Rate 62 60 59 L Respiratory 14 18 16 Rate Blood Pressure 101/67 122/66 115/51 L O2 Saturation 93 11/27/19 11/27/19 11/27/19 18:45 19:53 20:50 Temperature 36.4 C L 36.7 C Heart Rate 59 L 59 L 60 Respiratory 18 18 19 Rate Blood Pressure 120/66 124/72 122/69 O2 Saturation 100 11/27/19 11/27/19 11/27/19 21:15 21:20 21:30 Temperature 36.6 C 36.7 C 36.4 C L Heart Rate 60 59 L 60 Respiratory 16 18 18 Rate Blood Pressure 119/69 122/70 126/73 O2 Saturation Oxygen O2 Source [With Activity] Room air O2 Source Room air - Labs Labs: Laboratory Tests 11/27/19 11/27/19 11/27/19 16:29 16:29 16:29 WBC 8.4 RBC 2.93 L Hgb 6.5 L* 6.6 L* Hct 22.9 L 23.0 L MCV 78.5 L MCH 22.5 L MCHC 28.7 L RDW 20.2 H Plt Count 284 MPV 11.7 H Neut # (Auto) 6.0 Lymph # (Auto) 1.0 L [place] # (Auto) 0.9 Eos # (Auto) 0.3 Baso # (Auto) 0.1 Absolute Nucleated RBC 0.00 Nucleated RBC % 0.0 Manual Slide Review Indicated WBC Morphology NORMAL APPEARANCE Platelet Estimate NORMAL (130-450,000) Platelet Morphology NORMAL APPEARANCE RBC Morph Micro Appear 3+ SCHISTOCYTES PT 16.1 H INR 1.4 H Sodium Potassium Chloride Carbon Dioxide Anion Gap BUN Creatinine Estimated GFR (MDRD) Glucose Calcium Total Bilirubin AST ALT Alkaline Phosphatase Total Protein Albumin Globulin Albumin/Globulin Ratio Lipase Blood Type Antibody Screen Crossmatch IS Only 11/27/19 11/27/19 16:29 17:01 WBC RBC Hgb Hct MCV MCH MCHC RDW Plt Count MPV Neut # (Auto) Lymph # (Auto) [place] # (Auto) Eos # (Auto) Baso # (Auto) Absolute Nucleated RBC Nucleated RBC % Manual Slide Review WBC Morphology Platelet Estimate Platelet Morphology RBC Morph Micro Appear PT INR Sodium 138 Potassium 3.8 Chloride 101 Carbon Dioxide 26 Anion Gap 11.0 BUN 55 H Creatinine 2.4 H Estimated GFR (MDRD) 31 L Glucose 99 Calcium 8.6 Total Bilirubin 2.9 H AST 37 ALT 25 Alkaline Phosphatase 218 H Total Protein 7.2 Albumin 3.7 Globulin 3.5 Albumin/Globulin Ratio 1.1 Lipase 43 Blood Type O NEGATIVE Antibody Screen NEGATIVE Crossmatch IS Only See Detail Procedures - Epistaxis Site: Right, Anterior Preparation: Cocaine Treatment: Silver Nitrate Other: Observed - no bleeding PD MEDICAL DECISION MAKING - ED course ED course: 89-year-old gentleman who is fully anticoagulated on an unknown anticoagulant presents with persistent nosebleeds. We were able to cauterize him here and there was no further bleeding but because of the ongoing longstanding bleeding and anticoagulation his labs were checked and he is quite anemic having passed the transfusion threshold so received 2 units here. Departure - Departure Disposition: 01 Home, Self Care Clinical Impression: Epistaxis, Acute blood loss anemia Condition: Good Record reviewed to determine appropriate education?: Yes Instructions: ED Nosebleed Comments: Would not be unreasonable to follow-up with an research engineer for further evaluation and treatment, the closest is in [place]. The phone number is [phone]. Return if worse. Also follow-up with your primary care physician on Saturday, they may want to do repeat labs next week.
[2019-11-27 16:41] LABS: HGB - HEMOGLOBIN 6.5 g/dL (14.0-18.0)
[2019-11-27 16:55] LABS: BASOPHILS # (AUTO) 0.1 10^3/uL (0.0-0.1); BASOPHILS % (AUTO) 1.1 %; EOSINOPHILS # (AUTO) 0.3 10^3/uL (0.0-0.7); EOSINOPHILS % (AUTO) 3.4 %; LYMPHOCYTES % (AUTO) 12.2 %; MEAN CORPUSCULAR HEMOGLOBIN 22.5 pg (27.0-31.0); MEAN CORPUSCULAR HGB CONC 28.7 g/dL (32.0-36.0); MEAN CORPUSCULAR VOLUME 78.5 fL (80.0-94.0); MEAN PLATELET VOLUME 11.7 fL (7.4-11.4); MONOCYTES # (AUTO) 0.9 10^3/uL (0.0-1.0); MONOCYTES % (AUTO) 11.1 %; NEUTROPHILS % (AUTO) 71.7 %; PLT - PLATELET COUNT 284 10^3/uL (130-450); RED BLOOD COUNT 2.93 10^6/uL (4.70-6.10); RED CELL DISTRIBUTION WIDTH 20.2 % (12.0-15.0); WHITE BLOOD COUNT 8.4 x10^3/uL (4.8-10.8)
[2019-11-27 17:00] LABS: ALBUMIN 3.7 g/dL (3.2-5.5); ALBUMIN/GLOBULIN RATIO 1.1 (1.0-2.2); BILIRUBIN,TOTAL 2.9 mg/dL (0.2-1.0); CALCIUM 8.6 mg/dL (8.5-10.3); CREATININE 2.4 mg/dL (0.6-1.2); TOTAL PROTEIN 7.2 g/dL (6.7-8.2)
[2019-11-27 17:07] LABS: HGB - HEMOGLOBIN 6.6 g/dL (14.0-18.0); INR 1.4 (0.8-1.2); PLATELET ESTIMATE, MANUAL NORMAL (130-450,000) (NORMAL); PLATELET MORPHOLOGY NORMAL APPEARANCE (NORMAL); PT - PROTHROMBIN TIME 16.1 secs (9.9-12.6)
[2019-11-27] MEDS ORDERED: BUMETANIDE 1 MG/4 ML VIAL IVP STA (19:13)
[2019-11-27 23:42] VITALS: BP 132/75
== END 2019-11-27 23:55 | disposition home or self-care (01) ==
LOC: ED 16:06
DX: R04.0 Epistaxis (principal); D62 Acute posthemorrhagic anemia; Z79.01 Long term (current) use of anticoagulants; Z79.82 Long term (current) use of aspirin; I48.91 Unspecified atrial fibrillation; Z86.718 Personal history of other venous thrombosis and embolism; I10 Essential (primary) hypertension; E11.42 Type 2 diabetes mellitus with diabetic polyneuropathy; Z79.4 Long term (current) use of insulin
CPT/HCPCS: 30901; 36415; 36430; 80053; 83690; 85014; 85018; 85025; 85610; 86850; 86900; 86901; 86920; 96374; 99281; 99285; P9016

== ENCOUNTER 2020-04-29 15:00 | Emergency (ER) | payer MEDICARE ==
[2020-04-29] MEDS ORDERED: METHYLPHENIDATE 10 MG TABLET PO STA (15:28)
[2020-04-29] MEDS ORDERED: TETANUS/DIPHTHERIA/PERTUSSIS 0.5 ML SYRINGE IM ONE (15:28)
--- NOTE | 2020-04-29 15:31 | ED Physician Documentation ---
PD HPI HEAD INJURY - Stated complaint Stated Complaint: GLF,HEAD PX - Chief complaint Chief Complaint: Laceration - History obtained from History obtained from: Patient - Additional information Additional information: 89-year-old gentleman has narcolepsy and ran out of his methylphenidate and is having trouble filling it because the pharmacies are closed for Sam. He had a narcoleptic episode and hit his head on a piece of furniture. He denies headache. He does have a laceration of the forehead. He does not know when his last tetanus was. Review of Systems Constitutional: reports: Reviewed and negative Ears: reports: Reviewed and negative Nose: reports: Reviewed and negative Throat: reports: Reviewed and negative PD PAST MEDICAL HISTORY - Past Medical History Cardiovascular: Congestive heart failure, Hypertension, Coronary artery disease, Deep vein thrombosis, [place], Atrial fibrillation Respiratory: COPD, Shortness of breath Neuro: Peripheral neuropathy Endocrine/Autoimmune: Type 2 diabetes GI: None : Benign prostate hypertrophy, Renal insuffiency HEENT: Chronic hearing loss Psych: None Musculoskeletal: Osteoarthritis Derm: None - Past Surgical History Past Surgical History: Yes Ortho: Knee replacement Cardiovascular: Pacemaker, AICD - Present Medications Home Medications: Ambulatory Orders Medication Instructions Recorded Confirmed Gabapentin 300 mg PO TID 12/09/17 02/06/18 Methylphenidate HCl 20 mg PO 0800,1400 12/09/17 02/06/18 Spironolactone [Aldactone] 25 mg PO DAILY 02/06/18 02/06/18 carvediloL [Carvedilol] 6.25 mg PO BID 02/06/18 02/06/18 Insulin Aspart [NovoLOG] 2 - 10 unit SUBQ 02/12/18 0800,1200,1700,2100 #1 pen Insulin NPH Human [NovoLIN N] 4 unit SUBQ BIDWM #1 pe 02/12/18 Isosorbide Mononitrate ER [Imdur] 15 mg PO DAILY tablet 02/12/18 Aspirin [Adult Aspirin] 81 mg PO DAILY #30 tablet. 02/13/18 Blood Sugar Diagnostic [Glucometer 1 each [facility] #100 strip 02/13/18 Strips] Blood-Glucose Meter [Glucometer] 1 each [facility] #1 each 02/13/18 Bumetanide [Bumex] 1 mg PO TUTHSA tablet 10/11/18 Lancets 1 each [facility] #100 each 02/13/18 hydrALAZINE [Apresoline] 10 mg PO DAILY #30 tablet 02/13/18 Ferrous Gluconate [Iron] 240 mg PO DAILY #14 tablet 09/11/18 Oxycodone HCl/Acetaminophen 1 each PO Q6H PRN #7 tablet 09/11/18 [Percocet 5-325 mg Tablet] - Allergies Allergies/Adverse Reactions: Allergies Allergy/AdvReac Type Severity Reaction Status Date / Time Penicillins Allergy Severe Hives Verified 12/11/19 20:54 propoxyphene napsylate * AdvReac Severe pt reports Verified 12/11/19 20:54 [From [facility]oc[facility]-N 100] cardiac arrest - Social History Does the pt smoke?: No Smoking Status: Never smoker Does the pt drink ETOH?: No Does the pt have substance abuse?: No - Immunizations Immunizations are current?: No Immunizations: TDAP current <10years - POLST Patient has POLST: Yes POLST Status: Full Code PD ED PE NORMAL - Vitals Vital signs reviewed: Yes - General General: Alert and oriented X 3 (Slightly hard of hearing but otherwise pleasant and cooperative and in no distress) - HEENT HEENT: PERRL, EOMI, Ears normal, Other (1 cm shallow laceration central mid forehead without underlying bony tenderness. There is some swelling.) - Neck Neck: No bony TTP (But will perform advanced imaging given advanced age.) - Abdomen Abdomen: Soft, Non tender - Back Back: No CVA TTP, No spinal TTP - Derm Derm: Normal color, Warm and dry - Extremities Extremities: No edema, No calf tenderness / cord - Neuro Neuro: Alert and oriented X 3, Normal speech Results - Vitals Vitals: Vital Signs - 24 hr 04/29/20 04/29/20 15:05 16:17 Temperature 36.7 C Heart Rate 81 56 L Respiratory 18 16 Rate Blood Pressure 132/52 H 144/84 H O2 Saturation 100 93 Oxygen O2 Source [] Room air O2 Source Room air - Labs Labs: Laboratory Tests 04/29/20 15:29 POC Whole Bld Glucose 125 H - Rads (name of study) CT Head and C Spine Radiology: EMP read contemporaneously (NO ICH/fracture. 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 CT of the head and C-spine were negative for acute issues. We tried to get him a dose of his methylphenidate here since he is out but the pharmacy is not caring this right now so we will have to wait until tomorrow. 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 Since you will be able to get it until you get to the pharmacy tomorrow make sure not to do anything more you would be in danger if you were to have a narcoleptic attack again. Return as needed. Follow-up with your primary care physician.
--- NOTE | 2020-04-29 16:12 | CT Report ---
PROCEDURE: HEAD WO INDICATIONS: head injury TECHNIQUE: Noncontrast 4.5 mm thick angled axial sections acquired from the foramen magnum to the vertex. For r adiation dose reduction, the following was used: automated exposure control, adjustment of mA and/or kV according to patient size. COMPARISON: 09/12/2018. Correlation is also made with the accompanying cervical spine CT, 04/29/2020 FINDINGS: Image quality: Motion artifact is noted. Images were repeated, with some improvement. CSF spaces: Basal cisterns are patent. No extra-axial fluid collections. Ventricles are normal in size and shape. Brain: No midline shift. No intracranial masses or hemorrhage. [place]-white matter interface is norm al. Skull and face: Mild scalp swelling is seen involving the right forehead, with laceration and bandag ing material. No underlying calvarial fracture is seen. Calvarium and visualized facial bones are int act, without suspicious lesions. Sinuses: Visualized sinuses and mastoids are clear. IMPRESSION: Right forehead scalp swelling, without an underlying fracture. No intracranial hemorrhage is seen. No significant intracranial abnormality is seen. Reviewed by: Osei Lam MD on 04/29/2020 3:11 PM [facility] Approved by: Osei Lam MD on 04/29/2020 3:11 PM [facility] Station ID: [id number]
[2020-04-29 16:17] VITALS: BP 144/84
--- NOTE | 2020-04-29 16:20 | CT Report ---
PROCEDURE: CERVICAL SPINE WO INDICATIONS: head inury TECHNIQUE: Noncontrast 3 mm thick sections acquired from the skull base to the T4 level. Sagittal and coronal r eformats were then constructed. For radiation dose reduction, the following was used: automated exp osure control, adjustment of mA and/or kV according to patient size. COMPARISON: 09/12/2018. Correlation is also made with the accompanying head CT, 04/29/2020. FINDINGS: Image quality: Excellent. Bones: No fractures or dislocations. Visualized superior ribs are intact. Advanced degenerative changes are seen, with mild to moderate disc space narrowing at C3-C4, with mod erate to severe disc space narrowing at C4-C5, C5-C6, and C6-C7. Prominent endplate irregularity and fragmentation can be seen at these levels, particularly at C6-C7. There is minimal anterolisthesis at C3-C4 and C4-C5, with minimal retrolisthesis at C5-C6 and C6-C7. Focal degenerative change can also be seen involving the C1-C2 interface anteriorly. Milder degenerative changes are seen elsewhere. Mild levoconvex cervicothoracic sclerotic curvature Soft tissues: Prevertebral soft tissues are normal in thickness. No paravertebral hematomas. No ap ical pneumothoraces. Atherosclerotic calcification is seen. Left-sided pacer leads are partially see n. IMPRESSION: No acute fractures are seen. Advanced, prominent cervical spine degenerative changes are seen inferiorly, which are similar to the 2019 examination. Mild levoconvex cervicothoracic sclerotic curvature. Incidental note is made of: Left-sided pacer leads Reviewed by: Osei Lam MD on 04/29/2020 3:19 PM [place] Approved by: Osei Lam MD on 04/29/2020 3:19 PM [place] Station ID: [id number]
== END 2020-04-29 17:00 | disposition home or self-care (01) ==
LOC: ED 15:00
DX: S01.81XA Laceration without foreign body of other part of head, initial encounter (principal); S09.90XA Unspecified injury of head, initial encounter; W22.8XXA Striking against or struck by other objects, initial encounter; W19.XXXA Unspecified fall, initial encounter; Y92.003 Bedroom of unspecified non-institutional (private) residence as the place of occurrence of the external cause; G47.411 Narcolepsy with cataplexy; I13.0 Hypertensive heart and chronic kidney disease with heart failure and stage 1 through stage 4 chronic kidney disease, or unspecified chronic kidney disease; I50.9 Heart failure, unspecified; N18.9 Chronic kidney disease, unspecified; E11.22 Type 2 diabetes mellitus with diabetic chronic kidney disease; Z79.4 Long term (current) use of insulin; Z95.0 Presence of cardiac pacemaker; Z23 Encounter for immunization
CPT/HCPCS: 12011; 70450; 72125; 99284

== ENCOUNTER 2020-06-25 10:04 | Emergency (ER) | payer MEDICARE ==
--- NOTE | 2020-06-25 11:53 | ED Physician Documentation ---
PD HPI ABD PAIN - Stated complaint Stated Complaint: CONSTIPATED - Chief complaint Chief Complaint: Abd Pain - History obtained from History obtained from: Patient - History of Present Illness Timing - onset: How many days ago (3) Timing - duration: Days (3) Timing - details: Gradual onset, Still present, Waxing and waning Quality: Cramping, Pain Location: All over / everywhere Improved by: BM Worsened by: Moving, Position, Palpation Associated symptoms: Constipation. No: Nausea, Vomiting Similar symptoms before: Diagnosis (constipation) Recently seen: Other (seen for back pain) - Additional information Additional information: 89-year-old male who is recently started narcotic for pain medic for pain control of his back pain has developed constipation over the past 3 days he has not had a bowel movement and is beginning to feel distended and uncomfortable. He feels there is hard stool present. He has not had fever or vomiting. Review of Systems Constitutional: denies: Fever Respiratory: denies: Cough GI: reports: Constipation. denies: Vomiting PD PAST MEDICAL HISTORY - Past Medical History Cardiovascular: Congestive heart failure, Hypertension, Coronary artery disease, Deep vein thrombosis, RI, Atrial fibrillation Respiratory: COPD, Shortness of breath Neuro: Peripheral neuropathy Endocrine/Autoimmune: Type 2 diabetes GI: None : Benign prostate hypertrophy, Renal insuffiency HEENT: Chronic hearing loss Psych: None Musculoskeletal: Osteoarthritis Derm: None - Past Surgical History Past Surgical History: Yes Ortho: Knee replacement Cardiovascular: Pacemaker, AICD - Present Medications Home Medications: Ambulatory Orders Medication Instructions Recorded Confirmed Gabapentin 300 mg PO TID 12/09/17 02/06/18 Methylphenidate HCl 20 mg PO 0800,1400 12/09/17 02/06/18 Spironolactone [Aldactone] 25 mg PO DAILY 02/06/18 02/06/18 carvediloL [Carvedilol] 6.25 mg PO BID 02/06/18 02/06/18 Insulin Aspart [NovoLOG] 2 - 10 unit SUBQ 02/12/18 0800,1200,1700,2100 #1 pen Insulin NPH Human [NovoLIN N] 4 unit SUBQ BIDWM #1 pe 02/12/18 Isosorbide Mononitrate ER [Imdur] 15 mg PO DAILY tablet 02/12/18 Aspirin [Adult Aspirin] 81 mg PO DAILY #30 tablet. 02/13/18 Blood Sugar Diagnostic [Glucometer 1 each [facility] #100 strip 02/13/18 Strips] Blood-Glucose Meter [Glucometer] 1 each [facility] #1 each 02/13/18 Bumetanide [Bumex] 1 mg PO TUTHSA tablet 02/13/18 Lancets 1 each [facility] #100 each 02/13/18 hydrALAZINE [Apresoline] 10 mg PO DAILY #30 tablet 02/13/18 Ferrous Gluconate [Iron] 240 mg PO DAILY #14 tablet 09/11/18 Oxycodone HCl/Acetaminophen 1 each PO Q6H PRN #7 tablet 09/11/18 [Percocet 5-325 mg Tablet] - Allergies Allergies/Adverse Reactions: Allergies Allergy/AdvReac Type Severity Reaction Status Date / Time Penicillins Allergy Severe Hives Verified 06/25/20 10:12 propoxyphene napsylate * AdvReac Severe pt reports Verified 06/25/20 10:12 [facility] cardiac arrest - Social History Does the pt smoke?: No Smoking Status: Never smoker Does the pt drink ETOH?: No Does the pt have substance abuse?: No - Immunizations Immunizations are current?: No Immunizations: TDAP current <10years - POLST Patient has POLST: Yes POLST Status: Full Code PD ED PE NORMAL - Vitals Vital signs reviewed: Yes (hypertensive mild ) - General General: No acute distress, Well developed/nourished - HEENT HEENT: Atraumatic, PERRL - Respiratory Respiratory: No respiratory distress - Abdomen Abdomen: Normal bowel sounds, Soft, Non tender, No organomegaly, Other (mild distention ) - Rectal Rectal: Other (There is hard stool in the vault and this is broken up and morsilated but not removed as painful to the patient. 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, No motor deficit, No sensory deficit, Normal speech Eye Opening: Spontaneous Motor: Obeys Commands Verbal: Oriented GCS Score: 15 - Psych Psych: Normal mood, Normal affect Results - Vitals Vitals: Vital Signs - 24 hr 06/25/20 06/25/20 10:13 12:09 Temperature 36.8 C Heart Rate 54 L 70 Respiratory 19 18 Rate Blood Pressure 146/69 H 148/90 H O2 Saturation 100 100 Oxygen O2 Source [With Activity] Room air O2 Source Room air PD MEDICAL DECISION MAKING - ED course Complexity details: considered differential, d/w patient ED course: 89-year-old male with a 3-day history of constipation has some hard stool in the vault this is morcellated but not removed secondary to pain to the patient. He is administered a oil retention enema with excellent results. Departure - Departure Disposition: 01 Home, Self Care Clinical Impression: Constipation Qualifiers: Constipation type: unspecified constipation type Qualified Code(s): K59.00 - Constipation, unspecified Condition: Stable Instructions: ED Constipation Follow-Up: Vick Hicks MD [Primary Care Provider] - Discharge Date/Time: 06/25/20 12:09
[2020-06-25 12:10] VITALS: BP 148/90
== END 2020-06-25 12:09 | disposition home or self-care (01) ==
LOC: ED 10:04
DX: K59.00 Constipation, unspecified (principal); I11.0 Hypertensive heart disease with heart failure; I50.9 Heart failure, unspecified; I48.91 Unspecified atrial fibrillation; Z86.718 Personal history of other venous thrombosis and embolism; Z79.01 Long term (current) use of anticoagulants; E11.42 Type 2 diabetes mellitus with diabetic polyneuropathy; Z79.4 Long term (current) use of insulin
CPT/HCPCS: 99281; 99282